=== PATIENT | male | born 1935 | race Caucasian/White ===

== ENCOUNTER 2024-02-27 15:53 | Inpatient (IN) | payer OTHER, SELFPAY ==
[2024-02-27 12:08] VITALS: BP 145/73
[2024-02-27 12:45] LABS: % Basophils 0.3 % (0-2); % Eosinophils 2.6 % (0-6); % Immature Granulocytes 0.3 % (0-0.5); % Lymphocytes 17.3 % (20.5-51.1); % Monocytes 11.3 % (1.7-9.3); % Neutrophils 68.2 % (42.2-75.2); Absolute Eosinophils 0.2 10^3/uL (0-0.7); Absolute Lymphocytes 1.4 10^3/uL (1.2-3.4); Absolute Monocytes 0.9 10^3/uL (0.1-0.6); Absolute Neutrophils 5.3 10^3/uL (1.4-6.5); Hemoglobin 12.4 g/dL (13.0-18.0); Mean Corp Hgb Conc. 32.6 g/dL (33.0-37.0); Mean Platelet Volume 10.5 fL (7.4-10.4); Nucleated Red Blood Cells % 0 % (-); Platelet Count 156 10^3/uL (130-400); Red Blood Cell Count 4.13 10^6/uL (4.70-6.10); Red Cell Dist. Width 13.4 % (11.5-14.5); White Blood Cell Count 7.8 10^3/uL (4.8-10.8)
[2024-02-27 13:07] LABS: ALT (SGPT) 20 U/L (0-50); AST (SGOT) 32 U/L (17-59); Albumin 4.3 g/dl (3.5-5.0); Alkaline Phosphatase 80 U/L (38-126); Blood Urea Nitrogen 25 mg/dl (9-20); Calcium 9.5 mg/dl (8.4-10.2); Carbon Dioxide 27 mmol/L (22-30); Chloride 103 mmol/L (98-107); Glucose 136 mg/dl (70-99); Potassium 5.5 mmol/L (3.5-5.1); Sodium 140 mmol/L (135-145); Total Bilirubin 0.8 mg/dl (0.2-1.3); Total Protein 7.5 g/dl (6.3-8.2); eGFR > 60.00
[2024-02-27 13:17] LABS: NT-proBNP 8020 pg/ml; Troponin I < 0.012 ng/ml
[2024-02-27 13:48] VITALS: BP 112/95
[2024-02-27] MEDS: LASIX 40 MG IV (14:38)
--- NOTE | 2024-02-27 14:43 | CON.CAR ---
Addendum entered and electronically signed by CYNDY Brunner 02/27/24 15:48:
Addendum entered and electronically signed by CYNDY Brunner 02/27/24 15:41:
Consultation Requested 02/27/2024 at 14:00
Consultation Performed 02/27/2024 at 14:00
Requested by Marlo Germain PA-C
Performed by CYNDY Zelaya for Dr. Morrissey
Reason for consultation: Acute on chronic heart failure
Original Note:
Medical History
-
Chief Complaint: Shortness of breath, cough
History of Present Illness:
Julius Buckley is an 89 year old male (known to Dr. Morrissey, his primary admissions manager), with severe aortic stenosis, mitral valve replacement (rheumatic disease, on warfarin), HFmrEF, CAD (non obstructive), permanent atrial fibrillation, SSS s/p
Medtronic single-chamber pacemaker, dyslipidemia, and former smoker who presented to the emergency department with a chief complaint of shortness of breath. He endorsed associated cough. This started a few days ago and has been getting worse. He
noticed it worsening last night. He is unable to lay flat without severe shortness of breath. He had considered evaluation for TAVR however this was put on hold after the of his . He does endorse decrease in exercise capacity and is
now in acute on chronic heart failure.
Past Medical History
Past Medical History: Arrhythmias (Permanent atrial fibrillation), CAD, CHF and Valvular Disease (mechanical MVR, aortic stenosis)
Past Surgical History: Cardiac
Social History
Tobacco: Former Smoker
Alcohol: None
Drug: None
Personal:
Living: With Family (Twin brother)
Employment: Retired
Family History
Family History: Reviewed & Not Pertinent
Allergies / Home Medications
Allergy/AdvReac Type Severity Reaction Status Date / Time
quinidine [Quinidine] Allergy 'made my Verified 02/27/24 12:10
heart go
really
crazy'
�Medication �Instructions �Recorded �Confirmed �Type
digoxin 125 mcg (0.125 mg) tablet 0.125 mg PO DAILY Heart Failure 04/30/19 02/27/24 History
simvastatin 20 mg tablet 20 mg PO DAILY High cholesterol 07/18/20 02/27/24 History
lisinopril 5 mg tablet 5 mg PO DAILY Blood pressure 07/30/20 02/27/24 History
furosemide 40 mg tablet 40 mg PO DAILY 02/27/24 02/27/24 History
nadolol 80 mg tablet 80 mg PO BID 02/27/24 02/27/24 History
therapeutic multivitamin 1 tab PO DAILY 02/27/24 02/27/24 History
vitamins A,C,B-yrvl-zqiocr 4,296 1 cap PO DAILY 02/27/24 02/27/24 History
mcg-226 mg-90 mg capsule
(PreserVision AREDS)
warfarin 2.5 mg tablet 1.25 mg PO DAILY 02/27/24 02/27/24 History
warfarin 2.5 mg tablet 2.5 mg PO MOTUTHFR@1800 02/27/24 02/27/24 History
Review of Systems
-
History Source: Patient
All other systems: Negative unless noted
Constitutional: Weight Gain and Fatigue
Respiratory: Cough and Trouble Breathing
Cardiac: No Symptoms
Physical Exam
Vital Signs
Temp Pulse Resp BP Pulse Ox
97.7 F 77 18 112/95 94
02/27/24 12:08 02/27/24 13:48 02/27/24 13:48 02/27/24 13:48 02/27/24 13:48
Lab Results
02/27/24 12:35
02/27/24 12:35
Troponin I < 0.012 ng/ml 02/27/24 12:35
Wuf-B-Zgimlswbefw Pept 8020 pg/ml 02/27/24 12:35
Physical Exam
General: Well Developed, Well Nourished, No Apparent Distress and Comfortable
HEENT: Normocephalic, Anicteric and Moist Mucous Membranes
Respiratory: Crackles
Cardiac: S1/S2 and Other (mechanical click)
Breast: Deferred by me
GI: Soft, Non Tender, Non Distended and Normal Bowel Sounds
Rectal: Deferred by Provider
Genito-urinary: No Costovertebral Tender
Musculoskeletal: No Clubbing and No Cyanosis
Skin: Warm and Dry
Neuro: AO x 3
Hematologic/Lymphatic: No Lymphadenopathy
Psych: Calm
Impression / Plan
-
Background: 89M severe aortic stenosis, mitral valve replacement (rheumatic disease, on warfarin), HFmrEF, CAD (non obstructive), permanent atrial fibrillation, SSS s/p Medtronic single-chamber pacemaker, dyslipidemia, and former smoker who
presented to the emergency department with a chief complaint of shortness of breath. He presented in acute on chronic heart failure.
Fruit Inspector: Dr. Morrissey
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
-His weight was approximately 69.2 kg at his outpatient office visit last month
-Diuresis with furosemide 40 mg IV twice daily
-Heart failure education
-Update echocardiogram
Severe aortic stenosis
-Echocardiogram 09/2023 with peak/mean gradients of 54/31 mmHg, JENN 0.7 cm2, DVI 0.2
-Plan for cardiac catheterization this admission, heparin bridge as below (INR pending)
-Consult TAVR team
Mechanical mitral valve
-He is on warfarin with INR managed by our office
-Goal INR 2.5-3.5
-Hold warfarin and transition to heparin drip pending INR
Permanent atrial fibrillation
-Rate controlled on nadolol and digoxin
-Oral anticoagulation: Warfarin (mechanical mitral valve replacement)
-[id number] score at least 4 (age 89, vascular disease, CHF)
Hyperkalemia, follow with diuresis
Medtronic single-chamber PPM, followed in our outpatient device clinic, ASSEMBLER ENGINE 93% with normal lead function on interrogation 02/08/2024, MRI conditional
Coronary artery disease, s/p CABG (2017), stable without chest pain
Dyslipidemia, on simvastatin
Former smoker, continued cessation recommended
Data Reviewed
-
EKG: Report Reviewed by me (Atrial fibrillation with ventricular paced complexes, rate 75, anterior lateral ST abnormality)
Medical Tests (Nuc Med, Echo etc): Report Reviewed by me (Echocardiogram as above)
Labs: Discussed with Physician
Old Records: Reviewed (Outpatient cardiology records)
--- NOTE | 2024-02-27 14:55 | ED.GENMED ---
History of Present Illness
General
Chief Complaint: Breathing Problem
Time Seen by Provider: 02/27/24 13:45
Travel History
Have you had any contact with someone who has COVID-19?: No
Do you have any symptoms of coronavirus? Fever > 100 degrees, chills, cough, shortness of breath, sore throat, loss of taste or smell, muscle aches, or headache?: No
Past History
Past History
ED Past Medical History: Arrthythmia (Atrial fib), HTN, Hypercholesterolemia, Valvular disease (Mitral valve replacement, severe aortic stenosis) and Other (GI bleed)
ED Past Surgical History: Cardiac (CABG) and Other (Hernia repair)
Social History
Tobacco: Former smoker
Alcohol: None
Personal:
Living: with family
Course
Orders/Labs/Results
Orders:
Orders
02/27/24 12:10
Electrocardiogram (*1) Urgent
Reason for Study: Shortness of Breath
EKG- Treatment ONCE
02/27/24 12:11
CXR2 [CR Chest - 2 Views ] Urgent
Comment:
Reason For Exam: sob/cough
02/27/24 12:35
Complete Blood Count/With Diff Urgent
Comprehensive Metabolic Panel Urgent
NT-proBNP Urgent
Troponin I Urgent
Blood Culture Urgent
CALIN Source: Blood/Venous
Specimen Description:
02/27/24 14:28
Furosemide [Lasix] 40 mg IV NOW STA
02/27/24 14:35
Prothrombin Time Urgent
02/27/24 14:39
Warfarin [Coumadin] 2.5 mg PO NOW STA
Abnormal Lab Results
02/27/24
12:35
RBC 4.13 L 10^6/uL
(4.70-6.10)
Hgb 12.4 L g/dL
(13.0-18.0)
Hct 38.0 L %
(39.0-52.0)
MCHC 32.6 L g/dL
(33.0-37.0)
MPV 10.5 H fL
(7.4-10.4)
Absolute Monos (auto) 0.9 H 10^3/uL
(0.1-0.6)
Lymphocytes % 17.3 L %
(20.5-51.1)
Monocytes % 11.3 H %
(1.7-9.3)
Potassium 5.5 H mmol/L
(3.5-5.1)
BUN 25 H mg/dl
(9-20)
Glucose 136 H mg/dl
(70-99)
02/27/24 12:35
02/27/24 12:35
Vital Signs
Initial and Last Documented VS:
Initial Vital Signs
Temp Pulse Resp BP Pulse Ox
97.7 F 73 16 145/73 98
02/27/24 12:08 02/27/24 12:08 02/27/24 12:08 02/27/24 12:08 02/27/24 12:08
Last Documented Vital Signs
Temp Pulse Resp BP Pulse Ox
97.7 F 77 18 112/95 94
02/27/24 12:08 02/27/24 13:48 02/27/24 13:48 02/27/24 13:48 02/27/24 13:48
ED Attending Note
-
Portions of this chart may have been created with voice recognition software.� Occasional wrong word or��sound alike� substitutions may have occurred due to the inherent limitations of voice recognition software.
Discharge Plan
Departure
Prescriptions:
No Action
digoxin 0.125 MG tablet
0.125 mg PO DAILY
simvastatin 20 MG tablet
20 mg PO DAILY
lisinopril 5 MG tablet
5 mg PO DAILY
furosemide 40 mg Tablet
40 mg PO DAILY
nadolol 80 mg Tablet
80 mg PO BID
warfarin 2.5 mg Tablet
1.25 mg PO DAILY
warfarin 2.5 mg Tablet
2.5 mg PO MOTUTHFR@1800
Theragen Tablet
1 tab PO DAILY
PreserVision AREDS 4,296 mcg-226 mg-90 mg Capsule
1 cap PO DAILY
Referrals:
Yinka Lemon MD [Family Provider] -
Interventions
Interventions:
*Risk Screen - Suicide Last Done: 02/27/24 13:42
*General Assessment Last Done: 02/27/24 13:42
*Neglect/Abuse Screening Last Done: 02/27/24 13:42
ED- Fall Risk Assessment Last Done: 02/27/24 13:42
*ED COVID-19 Vaccine History Last Done: 02/27/24 12:08
ED- Cardiac Assessment Last Done: 02/27/24 13:42
ED- Pulmonary Assessment Last Done: 02/27/24 13:42
Discharge Date and Time
Print Language: KOREAN
--- NOTE | 2024-02-27 14:56 | ED.GENMED ---
History of Present Illness
General
Chief Complaint: Breathing Problem
Time Seen by Provider: 02/27/24 13:45
Travel History
Have you had any contact with someone who has COVID-19?: No
Do you have any symptoms of coronavirus? Fever > 100 degrees, chills, cough, shortness of breath, sore throat, loss of taste or smell, muscle aches, or headache?: No
History of Present Illness
History of Present Illness:
89-year-old male with history of aortic stenosis, MR s/p MVR, CHF, coronary artery disease, PAF status post pacemaker placement, and mitral regurgitation presents to the emergency department for evaluation of shortness of breath that has been waxing
waning over the past several days. He notes that the breathing became worse overnight prompting him to come to the emergency department. He notes that he only takes his Lasix at a half dose daily because he does not like to urinate excessively.
Did not take any of his meds this morning. He was previously in discussions to undergo TAVR but due to the of his this was put off. Denies any chest pain or shortness of breath at rest
Past History
Past History
ED Past Medical History: Arrthythmia (Atrial fib), HTN, Hypercholesterolemia, Valvular disease (Mitral valve replacement, severe aortic stenosis) and Other (GI bleed)
ED Past Surgical History: Cardiac (CABG) and Other (Hernia repair)
Social History
Tobacco: Former smoker
Alcohol: None
Personal:
Living: with family
Review of Systems
Review of Systems
Allergies reviewed?: Yes
All Other Systems: ROS reviewed and negative except as documented in HPI and ROS
Phy Exam
Physical Exam
Physical Exam:
GEN: Well appearing, NAD, WDWN
Eyes: PERRLA, EOMs intact, no scleral icterus
HENT: NCAT, oral mucosa moist
Lungs: Normal respiratory effort, bibasilar crackles
Cardiac: Regular rate and rhythm, blowing holosystolic murmur consistent with known AAS
Abdomen: S, NT, ND, NABS, no masses or hepatosplenomegaly
Neuro: AO x 3
MSK: No gross deformity or ecchymosis. No edema. No digital clubbing
Skin: No rashes, petechiae. Normal color, no pallor or jaundice.
Psych: Calm, cooperative, proper hygiene
Scores
Heart Failure Risk
Heart Failure Risk Score: Yes
History of Stroke or TIA: No
History of intubation for respiratory distress: No
Heart rate on ED arrival >/= 110: No
SaO2 <90% on arrival on room air: No
HR >/=110 during 3min walk test (or too ill to perform test): No
ECG has acute ischemic changes: No
Urea >/=12mmol/L (BUN 33.6mg/dL): No
Serum CO2>/=35mmol/L: No
Troponin I or T elevated to KS Level (0.4mg/dL): No
NT-proBNP >/=5,000ng/L (5,000pg/ml): Yes
HF Risk Score: 1
Admission Status: MEDIUM RISK 5.1% Consider observation or discharge to home with homecare & f/u visit to PCP/Work Order Sorting Clerk, or SNF for treatment
Course
Orders/Labs/Results
Orders:
Orders
02/27/24 12:10
Electrocardiogram (*1) Urgent
Reason for Study: Shortness of Breath
EKG- Treatment ONCE
02/27/24 12:11
CXR2 [CR Chest - 2 Views ] Urgent
Comment:
Reason For Exam: sob/cough
02/27/24 12:35
Complete Blood Count/With Diff Urgent
Comprehensive Metabolic Panel Urgent
NT-proBNP Urgent
Troponin I Urgent
Blood Culture Urgent
CALIN Source: Blood/Venous
Specimen Description:
02/27/24 14:28
Furosemide [Lasix] 40 mg IV NOW STA
02/27/24 14:35
Prothrombin Time Urgent
02/27/24 14:39
Warfarin [Coumadin] 2.5 mg PO NOW STA
Abnormal Lab Results
02/27/24
12:35
RBC 4.13 L 10^6/uL
(4.70-6.10)
Hgb 12.4 L g/dL
(13.0-18.0)
Hct 38.0 L %
(39.0-52.0)
MCHC 32.6 L g/dL
(33.0-37.0)
MPV 10.5 H fL
(7.4-10.4)
Absolute Monos (auto) 0.9 H 10^3/uL
(0.1-0.6)
Lymphocytes % 17.3 L %
(20.5-51.1)
Monocytes % 11.3 H %
(1.7-9.3)
Potassium 5.5 H mmol/L
(3.5-5.1)
BUN 25 H mg/dl
(9-20)
Glucose 136 H mg/dl
(70-99)
02/27/24 12:35
02/27/24 12:35
Vital Signs
Initial and Last Documented VS:
Initial Vital Signs
Temp Pulse Resp BP Pulse Ox
97.7 F 73 16 145/73 98
02/27/24 12:08 02/27/24 12:08 02/27/24 12:08 02/27/24 12:08 02/27/24 12:08
Last Documented Vital Signs
Temp Pulse Resp BP Pulse Ox
97.7 F 77 18 112/95 94
02/27/24 12:08 02/27/24 13:48 02/27/24 13:48 02/27/24 13:48 02/27/24 13:48
MDM/Problems Addressed
MDM/Problems Addressed:
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 Will be admitted to the hospitalist service for further management
*Critical Care Note
Total Time (30-74mins, 75-104mins- exclusive of procedures): Not Applicable
ED Attending Note
-
Portions of this chart may have been created with voice recognition software.� Occasional wrong word or��sound alike� substitutions may have occurred due to the inherent limitations of voice recognition software.
Discharge Plan
Departure
Patient Disposition: Admit
Date of Disposition: 02/27/24
Time of Disposition: 15:06
Admit to: Telemetry
Presentation/result/management discussed w/ accepting MD/DO: Hospitalist
Discharge Problem:
Acute HFrEF (heart failure with reduced ejection fraction), Aortic stenosis
Prescriptions:
No Action
digoxin 0.125 MG tablet
0.125 mg PO DAILY
simvastatin 20 MG tablet
20 mg PO DAILY
lisinopril 5 MG tablet
5 mg PO DAILY
furosemide 40 mg Tablet
40 mg PO DAILY
nadolol 80 mg Tablet
80 mg PO BID
warfarin 2.5 mg Tablet
1.25 mg PO DAILY
warfarin 2.5 mg Tablet
2.5 mg PO MOTUTHFR@1800
Theragen Tablet
1 tab PO DAILY
PreserVision AREDS 4,296 mcg-226 mg-90 mg Capsule
1 cap PO DAILY
Referrals:
Yinka Lemon MD [Family Provider] -
Interventions
Interventions:
*Risk Screen - Suicide Last Done: 02/27/24 13:42
*General Assessment Last Done: 02/27/24 13:42
*Neglect/Abuse Screening Last Done: 02/27/24 13:42
ED- Fall Risk Assessment Last Done: 02/27/24 13:42
*ED COVID-19 Vaccine History Last Done: 02/27/24 12:08
ED- Cardiac Assessment Last Done: 02/27/24 13:42
ED- Pulmonary Assessment Last Done: 02/27/24 13:42
Discharge Date and Time
Print Language: EQUATORIAL GUINEAN
[2024-02-27 15:05] LABS: INR 2.78; PT 29.3 Sec (11.4-14.6)
--- NOTE | 2024-02-27 15:07 | HPS.HSE ---
Family Physician
-
Family Physician: Yinka Lemon
Chief Complaint
-
sob
History of Present Illness
89-year-old male with history of aortic stenosis, MR s/p MVR, CHF, coronary artery disease, PAF status post pacemaker placement, and mitral regurgitation presents to the emergency department for evaluation of shortness of breath that has been waxing
waning since . stated mild sob with exertion.Denies any chest pain. stated worsening sob last night. he was not able to sleep due to sob. denied TINEO, dizzy or syncopal episode. denied fever, chills, runny nose, congestion. denied abdominal
pain, nv,d. denied dysuria or hematuria.
BNP elevated. chest x ray with mild cardiomegaly. admitting for further management.
Medical History
Past Medical History
Past Medical History: Reports Other
Additional Past Medical History:
inguinal hernia
paroxysmal atrial fib
CAD
aortic stenosis
rheumatic aortic stenosis
sick sinus syndrome
skin cancer
Past Surgical History: Reports Other
Additional Past Surgical History:
mitral valve replacement
CABG
hernia repair
inguinal hernia repair
pacemaker
Social History
Tobacco: Non-smoker
Alcohol: None
Drug: None
Personal: Single
Living: With Family
Family History
Family History: Not pertinent
Allergies / Home Medications
Allergies reflects when Allergies were last updated in [facility].
Home Medications with original date entered in [facility]
Allergy/Medication List:
Allergies
Allergy/AdvReac Type Severity Reaction Status Date / Time
quinidine [Quinidine] Allergy 'made my Verified 02/27/24 12:10
heart go
really
crazy'
Home Medications
digoxin 125 mcg (0.125 mg) tablet 0.125 mg PO DAILY Heart Failure 04/30/19
simvastatin 20 mg tablet 20 mg PO DAILY High cholesterol 07/18/20
lisinopril 5 mg tablet 5 mg PO DAILY Blood pressure 07/30/20
furosemide 40 mg tablet 40 mg PO DAILY 02/27/24
nadolol 80 mg tablet 80 mg PO BID 02/27/24
therapeutic multivitamin 1 tab PO DAILY 02/27/24
vitamins A,C,A-nyth-frraza 4,296 mcg-226 mg-90 mg capsule (PreserVision AREDS) 1 cap PO DAILY 02/27/24
warfarin 2.5 mg tablet 1.25 mg PO DAILY 02/27/24
warfarin 2.5 mg tablet 2.5 mg PO MOTUTHFR@1800 02/27/24
Review of Systems
-
Constitutional: Reports No Symptoms
EENT: Reports No Symptoms
Respiratory: Reports Cough and Trouble Breathing
Cardiac: Reports No Symptoms
Abdomen/GI: Reports No Symptoms
: Reports No Symptoms
Musculoskeletal: Reports No Symptoms
Skin: Reports No Symptoms
Neurological: Reports No Symptoms
Endocrine: Reports No Symptoms
Hematologic/Lymphatic: Reports No Symptoms
Psych: Reports No Symptoms
Physical Exam
Vital Signs
Vital Signs
Temp Pulse Resp BP Pulse Ox
97.7 F 77 18 112/95 94
02/27/24 12:08 02/27/24 13:48 02/27/24 13:48 02/27/24 13:48 02/27/24 13:48
Physical Exam
General: Well Developed, Well Nourished and No Apparent Distress
HEENT: NormoCephalic, Moist mucous membranes and Atraumatic
Respiratory: Clear
Cardiac: S1/S2 and Regular Rhythm; No Murmur or Rub
GI: Soft, Non Tender, Non Distended and Normal Bowel Sounds; No Organomegaly
Rectal: Deferred by Provider
Musculoskeletal: No Clubbing, No Cyanosis and Other (b/l LE edema)
Skin: No Rash
Neuro: AO x 3 and Nonfocal/grossly intact
Psych: Calm
Laboratory Results
-
02/27/24 12:35
02/27/24 12:35
Laboratory Results
PT 29.3 Sec (11.4-14.6) H 02/27/24 14:35
INR 2.78 02/27/24 14:35
Total Bilirubin 0.8 mg/dl (0.2-1.3) 02/27/24 12:35
AST 32 U/L (17-59) 02/27/24 12:35
ALT 20 U/L (0-50) 02/27/24 12:35
Alkaline Phosphatase 80 U/L (38-126) 02/27/24 12:35
Troponin I < 0.012 ng/ml 02/27/24 12:35
Data Reviewed
-
Diagnostic Radiology: Report Reviewed by me
Lab Data: Labs Reviewed by me
Impression/Plan
-
#acute on chronic CHF exacerbation
-BNP 8020
-Chest x-ray with mild central pulmonary vascular congestion, mild cardiomegaly
-IV Lasix bid
-Strict SCARLET
-Daily weight
-Fluid restriction
-Cardiology consult
-recent ECHO with EF of 40.45%
-obtain ECHO
#hxt of severe /mechanical mitral valve
-on Coumadin
-plan for cardiac cath
-hold Coumadin, heparin bridge
#paroxysmal atrial fib
-Heart rate controlled
-Digoxin continued
-Nadolol continued
# Essential hypertension
-Lisinopril continued with old parameter
#coronary artery disease, s/p CABG (2017), stable without chest pain
#HLD
-Simvastatin continued
# Hyperkalemia
-K5.5
-Will diurese and monitor BMP
# DVT prophylaxis
-Heparin drip
# CODE STATUS
-Full code
[2024-02-27 15:29] VITALS: BP 120/91
--- NOTE | 2024-02-27 15:57 | W.PN.UPDATE ---
Update Note
Progress Note Update
HPI: 89-year-old male with PMH severe aortic stenosis, MR s/p MVR, CHF, coronary artery disease, PAF status post pacemaker placement; p/w shortness of breath/ SIMON.
A/P:
# acute on chronic systolic CHF, may be related to underling severe
BNP 8020
Chest x-ray with mild central pulmonary vascular congestion, mild cardiomegaly
Started IV Lasix 40 mg BID, monitor daily weight
check repeat echo
Cardiology on board
# Severe
# mechanical mitral valve replacement
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
# Paroxysmal atrial fib
Cont Digoxin, Nadolol
# Essential hypertension
Cont Lisinopril with hold parameter
# CAD s/p CABG (2017)
stable without chest pain
# HLD
Simvastatin continued
# Mild Hyperkalemia
K 5.5
monitor BMP while on IV lasix
DVT prophylaxis- Heparin drip bridge
CODE STATUS- Full code
[2024-02-27] MEDS: ASPIRIN ENTERIC COATED 325 MG PO (16:47)
[2024-02-27 17:31] VITALS: BMI 23.3
[2024-02-27 17:32] VITALS: BP 143/74
[2024-02-27 17:44] LABS: Hematocrit 37.2 % (39.0-52.0); Hemoglobin 12.3 g/dL (13.0-18.0); Mean Corp Hgb Conc. 33.1 g/dL (33.0-37.0); Mean Corpuscular Hgb 29.8 pg (27.0-31.0); Mean Corpuscular Volume 90.1 fL (80.0-94.0); Mean Platelet Volume 10.3 fL (7.4-10.4); Platelet Count 151 10^3/uL (130-400); Red Blood Cell Count 4.13 10^6/uL (4.70-6.10); Red Cell Dist. Width 13.4 % (11.5-14.5); White Blood Cell Count 5.8 10^3/uL (4.8-10.8)
[2024-02-27 17:55] LABS: APTT 59.6 Sec (23.4-35.0)
[2024-02-27] MEDS: HEPARIN 25000 UNITS/250 ML IV (18:01)
[2024-02-27 18:21] VITALS: BMI 23.3
[2024-02-27 19:00] VITALS: BP 132/54
[2024-02-27] MEDS: CORGARD PO (20:09)
[2024-02-27 23:00] VITALS: BP 125/53
[2024-02-28] VITALS (7 sets, daily range): BP systolic 130–163; BP diastolic 57–75; BMI 23.0
[2024-02-28] MEDS: ROBITUSSIN 200 MG PO ×2 (00:51→07:30)
[2024-02-28 01:59] LABS: APTT 142.1 Sec (23.4-35.0)
[2024-02-28] MEDS: ZESTRIL 5 MG PO (07:30)
[2024-02-28] MEDS: LOW STRENGTH ASPIRIN 81 MG PO (07:30)
[2024-02-28] MEDS: CORGARD 80 MG PO ×2 (07:30→20:04)
[2024-02-28] MEDS: LIPITOR 10 MG PO (07:30)
[2024-02-28] MEDS: LASIX 40 MG IV ×2 (07:31→16:12)
[2024-02-28 08:37] LABS: INR 2.74; PT 28.9 Sec (11.4-14.6)
[2024-02-28 08:38] LABS: APTT 82.7 Sec (23.4-35.0)
--- NOTE | 2024-02-28 08:41 | W.PN.CD ---
Today's Communication / Plan
-
hold hep gtt until INR<2.5
resume diet but npo p
continue diuresis
consider additional process ?Bronchitis
inr check at 5pm for possible resumption of heparin gtt
Impression / Plan
-
Background: 89M severe aortic stenosis, mitral valve replacement (rheumatic disease, on warfarin), HFmrEF, CAD (non obstructive), permanent atrial fibrillation, SSS s/p Medtronic single-chamber pacemaker, dyslipidemia, and former smoker who
presented to the emergency department with a chief complaint of shortness of breath. He presented in acute on chronic heart failure.
Guest Services Ambassador: Dr. Morrissey
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
-His weight was approximately 69.2 kg at his outpatient office visit last month
-Diuresis with furosemide 40 mg IV twice daily
-Heart failure education
-EF down to 35-40%,eventual GDMT, after diureisis
-CM to [facility] SGLT2 inhibitors
SOB:
-?elebment of bronchitis as well> he is bringing up thick yellow sputum and is wheezing on exam
-will d/w Dr Anders
Severe aortic stenosis
-Plan for cardiac catheterization this admission, heparin bridge as below (INR pending)
-Consult TAVR team
Mechanical mitral valve
-He is on warfarin with INR managed by our office
-Goal INR 2.5-3.5--no need for hep gtt while therapuetic, will check this evening and see if need to resume hep but for now will hold
-Hold warfarin and transition to heparin drip when INR <2.5
Permanent atrial fibrillation
-tele with some sinus intermittently paced
-Rate controlled on nadolol and digoxin
-Oral anticoagulation: Warfarin (mechanical mitral valve replacement)
-[id number] score at least 4 (age 89, vascular disease, CHF)
Hyperkalemia, follow with diuresis
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
Coronary artery disease, s/p CABG (2017), stable without chest pain
Dyslipidemia, on simvastatin
Former smoker, continued cessation recommended
TTE 02/27/24: Moderately reduced left ventricular systolic function.
Left ventricular ejection fraction is 35-40%.
Mechanical mitral valve with a mean gradient of 4 mmHg and no mitral
regurgitation
Severe aortic stenosis. Peak gradient 42 mmHg. Mean gradient 23 mmHg.
Dimensionless index 0.2
Severe pulmonary hypertension with estimated PA pressure 75 to 80 mmHg
When compared with the previous report 09/26/2023 estimated EF is reduced.
Previously 40 to 45%. Estimated PA pressure is increased. Previously 64 mmHg
Physical Exam
Vital Signs/Labs
Vital Signs
Temp Pulse Resp BP Pulse Ox
98.2 F 61 16 163/61 94
02/28/24 07:00 02/28/24 07:00 02/28/24 07:00 02/28/24 07:00 02/28/24 07:00
02/27/24 02/28/24 02/29/24
06:59 06:59 06:59
Actual Weight 66.406 kg
02/28/24 06:00
PT 28.9 Sec (11.4-14.6) H 02/28/24 08:14
INR 2.74 02/28/24 08:14
APTT Cancelled 02/28/24 08:14
02/27/24
12:35
Pfp-E-Nfqhoipdpbx Pept 8020
LAB Results
02/27/24
12:35
Troponin I < 0.012
Physical Exam
Constitutional: No acute distress
Cardiovascular: Rhythm & rate is regular, Pedal edema is absent and Systolic murmur absent
Respiratory: Respiratory effort normal, Crackles Absent, Rhonchi Absent and Wheeze Present (diffusely)
Neuro/Psych: AO x 3
Data Reviewed
-
Date of Service: February 28, 2024
EKG: Other (tele with intermittent sinus and vpacing)
[2024-02-28 08:42] LABS: ALT (SGPT) 19 U/L (0-50); AST (SGOT) 33 U/L (17-59); Albumin 4.2 g/dl (3.5-5.0); Alkaline Phosphatase 84 U/L (38-126); Blood Urea Nitrogen 28 mg/dl (9-20); Calcium 9.5 mg/dl (8.4-10.2); Carbon Dioxide 27 mmol/L (22-30); Chloride 104 mmol/L (98-107); Direct Bilirubin 0.3 mg/dl (0.0-0.4); Estimated Creatinine Clearance 48 ml/min; Glucose 126 mg/dl (70-99); HDL Cholesterol 42 mg/dl; LDL Cholesterol, Calculated 70 mg/dl; Potassium 4.6 mmol/L (3.5-5.1); Sodium 140 mmol/L (135-145); Total Cholesterol 134 mg/dl (50-199); Total Protein 7.5 g/dl (6.3-8.2); Triglyceride 114 mg/dl (10-149); Very Low Density Lipoprotein 22 mg/dl (0-30); eGFR > 60.00
[2024-02-28 08:52] LABS: Digoxin < 0.4 ng/ml (0.8-2.0)
[2024-02-28 09:09] LABS: TSH Reflex To Free T4 0.77 uIU/ml (0.47-4.68)
[2024-02-28] MEDS: LANOXIN 125 MCG PO (11:14)
--- NOTE | 2024-02-28 11:16 | W.PN.HOSP.TC ---
Today's Communication/Plan
-
see A/P
Assessment / Plan
Assessment / Plan
HPI: 89-year-old male with PMH severe aortic stenosis, MR s/p MVR, CHF, coronary artery disease, PAF status post pacemaker placement; p/w shortness of breath/ SIMON.
A/P:
# acute on chronic systolic CHF, may be related to underling severe
BNP 8020
Chest x-ray with mild central pulmonary vascular congestion, mild cardiomegaly
Cont IV Lasix 40 mg BID, monitor daily weight
updated echo 02/27 noted: EF 35-40%. Mechanical mitral valve, no mitral regurgitation. Severe aortic stenosis. Severe pulmonary hypertension with estimated PA pressure 75 to 80 mmHg. Compared with previous report 09/26/2023 estimated EF is reduced
(Previously 40 to 45%), PA pressure is increased (Previously 64 mmHg)
Cardiology on board
# Severe
# mechanical mitral valve replacement
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
follow daily INR
# Wheezing likely acute bronchitis
CXR unrevealing
start Decadron 4 mg BID, Mucinex, DuoNeb and vest therapy
Monitor wheezing
# Paroxysmal atrial fib
Cont Digoxin, Nadolol
# Essential hypertension
Cont Lisinopril with hold parameter
# CAD s/p CABG (2016)
stable without chest pain
# HLD
Simvastatin continued
# Mild Hyperkalemia, resolved
DVT prophylaxis- Heparin drip bridge when INR < 2.5
CODE STATUS- Full code
DW Card
Anticipated Discharge: > 48 hours
Subjective/Interval History
-
Date of Service: February 28, 2024
Objective Data
-
Labs:
Laboratory Results
02/28/24 02/28/24 02/28/24
00:52 01:43 06:00
WBC Cancelled
Hgb Cancelled
Hct Cancelled
Plt Count Cancelled
PT Cancelled
INR Cancelled
APTT Cancelled 142.1 H
Sodium
Potassium
Chloride
Carbon Dioxide
BUN
Creatinine
Glucose
Calcium
Total Bilirubin
AST
ALT
Alkaline Phosphatase
02/28/24 02/28/24 02/28/24
08:14 08:14 17:58
WBC
Hgb
Hct
Plt Count
PT 28.9 H Pending
INR 2.74 Pending
APTT Cancelled 82.7 H
Sodium 140
Potassium 4.6
Chloride 104
Carbon Dioxide 27
BUN 28 H
Creatinine 1.0
Glucose 126 H
Calcium 9.5
Total Bilirubin 1.0
AST 33
ALT 19
Alkaline Phosphatase 84
Vital Signs:
Vital Signs
Temp Pulse Resp BP Pulse Ox
36.8 C 61 16 163/61 94
02/28/24 07:00 02/28/24 07:00 02/28/24 07:00 02/28/24 07:00 02/28/24 07:00
I&O
02/27/24 02/28/24 02/29/24
06:59 06:59 06:59
Intake Total 240 / 240
Output Total 600 / 600
Balance -360 / -360
Review of Systems
-
All other systems: Reviewed and negative
Physical Exam
-
General: Well Developed, Well Nourished, No Apparent Distress, Comfortable and Conversant; Negative Respiratory Distress
HEENT: Normocephalic, Atraumatic, Nose Appears Normal and Ears Appear Normal; Negative Oxygen
Respiratory: Clear to Auscultation, Wheezes and Non Labored Respirations; Negative Accessory Resp Muscle Use
Cardiac: Regular Rhythm and S1/S2
GI: Soft, Nontender, Nondistended and Normal Bowel Sounds
Skin: Warm and Dry
Neuro: Awake, Alert, Oriented and AO x 3
Psych: Calm and Intact Judgement/Insight
Data Reviewed
-
Diagnostic Radiology: Image personally visualized and interpreted and Report Reviewed by me
Labs: Labs Reviewed by me
[2024-02-28] MEDS: DUONEB 3 ML INH ×3 (11:30→19:35)
[2024-02-28] MEDS: MUCINEX 1200 MG PO ×2 (11:48→20:04)
[2024-02-28] MEDS: DECADRON 4 MG IV (11:48)
--- NOTE | 2024-02-28 15:13 | CM ---
Alert awake oriented patient who lives with his brother and franko in a2 level home with 1 step to enter and 13 to bed bathroom.He lost his in Sep.He is independent in driving and all activities of daily living.Offered VN he declined. No adaptive
devices. Informed him Luisa razo cost $ 14.40 / month
No SNF/DH VN hx
Pharmacy [facility]
PCP Dr Lemon
PLAN Home no needs
[2024-02-28 17:36] LABS: INR 2.73; PT 28.9 Sec (11.4-14.6)
[2024-02-29] MEDS: DECADRON 4 MG IV ×3 (00:10→23:31)
--- NOTE | 2024-02-29 03:08 | DOWNTIME ---
There was a [employer] Client Passenger Conductor Downtime on 02/28/2024 from 0100 to 02/29/2024 at 0300. Downtime documentation of patient's care, including medication administrations, has been reconciled in the electronic record per guidelines. Refer to the
patient's paper chart under the miscellaneous tab to see printed paper medication records and downtime forms.
[2024-02-29 03:11] VITALS: BP 120/70
[2024-02-29 05:35] LABS: Hematocrit 37.6 % (39.0-52.0); Hemoglobin 12.5 g/dL (13.0-18.0); Mean Corp Hgb Conc. 33.2 g/dL (33.0-37.0); Mean Corpuscular Hgb 29.9 pg (27.0-31.0); Mean Platelet Volume 10.5 fL (7.4-10.4); Platelet Count 147 10^3/uL (130-400); Red Blood Cell Count 4.18 10^6/uL (4.70-6.10); Red Cell Dist. Width 13.2 % (11.5-14.5); White Blood Cell Count 5.6 10^3/uL (4.8-10.8)
[2024-02-29 05:41] LABS: INR 2.75
[2024-02-29 06:03] LABS: Blood Urea Nitrogen 41 mg/dl (9-20); Calcium 9.1 mg/dl (8.4-10.2); Carbon Dioxide 27 mmol/L (22-30); Chloride 102 mmol/L (98-107); Estimated Creatinine Clearance 43 ml/min; Glucose 167 mg/dl (70-99); Magnesium 1.9 mg/dl (1.6-2.3); Potassium 4.4 mmol/L (3.5-5.1); Sodium 138 mmol/L (135-145); eGFR > 60.00
[2024-02-29 07:00] VITALS: BP 149/85
[2024-02-29] MEDS: CORGARD 80 MG PO (07:43)
[2024-02-29] MEDS: MUCINEX 1200 MG PO ×2 (07:43→19:46)
[2024-02-29] MEDS: ZESTRIL 5 MG PO (07:44)
[2024-02-29] MEDS: LIPITOR 10 MG PO (07:44)
[2024-02-29] MEDS: LOW STRENGTH ASPIRIN 81 MG PO (07:44)
[2024-02-29] MEDS: DUONEB 3 ML INH ×2 (07:46→11:08)
[2024-02-29] MEDS: LASIX 40 MG IV ×2 (07:51→16:05)
--- NOTE | 2024-02-29 09:04 | W.PN.CD ---
Today's Communication / Plan
-
Monitor INR.
Continue diuresis.
R/L Cardiac catheterization when INR is < 1.8.
Start heparin when INR is < 2.5.
Start dapagliflozin 10 mg daily.
Role for sacubitril/valsartan?
Impression / Plan
-
Impression/Plan: 89M severe aortic stenosis, mechanical mitral valve replacement (#35 [place] mechanical MVR, on warfarin), HFmrEF, CAD s/p 1V CABG (SVG to OM during MVR), permanent atrial fibrillation, SSS s/p Medtronic single-chamber pacemaker,
dyslipidemia, and former smoker who presented to the emergency department with a chief complaint of shortness of breath consistent with acute on chronic heart failure.
#Heart failure with mildly reduced ejection fraction
-Acute on chronic.
-LVEF 40-45%, now down to 35-40%.
-Diuresis with furosemide 40 mg IV twice daily.
-Heart failure education.
-GDMT. Case management consult.
#SOB
-Possible element of bronchitis as well?
-He was bringing up thick yellow sputum and is wheezing on exam.
#Severe aortic stenosis
-Plan for R/L cardiac catheterization this admission, after INR is < 1.8.
-Heparin bridge as below (INR pending)
#Mechanical mitral valve
-Chronic, stable.
-He is on warfarin with INR managed by our office.
-Goal INR 2.5-3.5--no need for hep gtt while therapuetic, will check this evening and see if need to resume hep but for now will hold
-Hold warfarin and transition to heparin drip when INR <2.5.
#Permanent atrial fibrillation
-Chronic, stable.
-Rate control nadolol and digoxin.
-Oral anticoagulation: Warfarin (mechanical mitral valve replacement).
-[id number] score at least 4 (CHF, age x2, vascular disease).
#Hyperkalemia
-Resolved.
#SSS
-S/P Medtronic single-chamber PPM, followed in our outpatient device clinic, OUTSIDE SALES ACCOUNT EXECUTIVE 93% with normal lead function on interrogation 02/08/2024, MRI conditional.
#Coronary artery disease
-Chronic.
-s/p CABG 1V CABG (SVG to OM) during MVR.
#Dyslipidemia
-Chronic, stable.
-Continue simvastatin.
#Former smoker
-Continued cessation recommended.
Puppy Sitter: Dr. Morrissey
Subjective/Interval History:
Weight is down 1 kg from yesterday.
INR remains 2.75.
He feels well.
DATA:
TTE, 02/27/24:
Moderately reduced left ventricular systolic function.
Left ventricular ejection fraction is 35-40%.
Mechanical mitral valve with a mean gradient of 4 mmHg and no mitral
regurgitation.
Severe aortic stenosis. Peak gradient 42 mmHg. Mean gradient 23 mmHg.
Dimensionless index 0.2.
Severe pulmonary hypertension with estimated PA pressure 75 to 80 mmHg.
When compared with the previous report 09/26/2023 estimated EF is reduced.
Previously 40 to 45%. Estimated PA pressure is increased. Previously 64 mmHg.
Physical Exam
Vital Signs/Labs
Vital Signs
Temp Pulse Resp BP Pulse Ox
36.4 C 65 16 149/85 95
02/29/24 07:00 02/29/24 07:52 02/29/24 07:52 02/29/24 07:00 02/29/24 07:52
02/27/24 02/28/24 02/29/24
11:59 11:59 11:59
Actual Weight 66.406 kg
02/29/24 05:12
02/29/24 05:12
PT 29.0 Sec (11.4-14.6) H 02/29/24 05:12
INR 2.75 02/29/24 05:12
APTT 82.7 Sec (23.4-35.0) H 02/28/24 08:14
APTT Cancelled 02/28/24 08:14
Magnesium 1.9 mg/dl (1.6-2.3) 02/29/24 05:12
Triglycerides 114 mg/dl (10-149) 02/28/24 08:14
LDL Cholesterol, Calc 70 mg/dl 02/28/24 08:14
VLDL Cholesterol, Calc 22 mg/dl (0-30) 02/28/24 08:14
HDL Cholesterol 42 mg/dl 02/28/24 08:14
Digoxin < 0.4 ng/ml (0.8-2.0) L 02/28/24 08:14
02/27/24
12:35
Zlk-V-Nhurhmhrhoa Pept 8020
LAB Results
02/27/24
12:35
Troponin I < 0.012
Physical Exam
Constitutional: No acute distress and Comfortable
EENT: Anicteric and Moist mucous membranes
Cardiovascular: Pedal edema is absent, JVD pressure is normal, Rhythm/rate is irregular, Systolic murmur present and S1S2 is normal (S1 is crisp and mechanical.)
Respiratory: Respiratory effort normal, Lungs clear to auscul., Wheeze Absent, Crackles Absent and Rhonchi Absent
GI: Soft, Distention absent, Flat, Non tender and Normal bowel sounds
Neuro/Psych: AO x 3
Data Reviewed
-
Date of Service: February 29, 2024
Medical Decision Making: Reviewed Test Results, Independent Historian Assessment and Test Interpretation
EKG: Tracing Personally Visualized and interpreted and Report Reviewed by me
Echo: Report Reviewed by me
X-Ray/CT/US/MRI/NUC/PET: Image Personally Visualized and interpreted and Report Reviewed by me
Labs: Labs Reviewed by me
--- NOTE | 2024-02-29 10:11 | PN.CDI ---
CDI
- -
CDI:
Physician Documentation Request
Admit Date: 02/27/24 15:53
Dear Doctor Chago,
Please review the following and provide your response in the progress notes.
Clinical Indicators:
Pt admitted with Acute on Chronic Systolic CHF
There is potentially conflicting documentation regarding the type of atrial fibrillation.
Documented per H&P and progress notes, ' Paroxysmal atrial fib Cont Digoxin, Nadolol ...'
Documented per Cardiology consult and Progress note 02/27, ' Permanent atrial fibrillation..'
If possible, please provide further specificity regarding atrial fibrillation, such as:
Permanent atrial fibrillation - when a decision has been made to accept the presence of AF and there is no further
attempt to restore or maintain sinus rhythm
Paroxysmal atrial fibrillation - terminates spontaneously or with intervention within 7 days of onset
Other - please specify
Use of terms such as suspected, likely, concern for, or probable (associated with a specific diagnosis that is being evaluated, monitored, or treated as if it exists) are acceptable and can be coded in the inpatient setting, when documented at the
time of discharge.
Thank you,
Agnieszka Evans RN
CDI Specialist
[place] [facility]
Please use your independent medical judgment in providing your response.
--- NOTE | 2024-02-29 10:47 | W.PN.HOSP.TC ---
Addendum entered and electronically signed by Evelyn Anders MD 02/29/24 14:24:
# Permanent atrial fibrillation
Original Note:
Today's Communication/Plan
-
see A/P
Assessment / Plan
Assessment / Plan
HPI: 89-year-old male with PMH severe aortic stenosis, MR s/p MVR, CHF, coronary artery disease, PAF status post pacemaker placement; p/w shortness of breath/ SIMON.
A/P:
# acute on chronic systolic CHF, may be related to underling severe
BNP 8020
Chest x-ray with mild central pulmonary vascular congestion, mild cardiomegaly
Cont IV Lasix 40 mg BID, monitor daily weight
updated echo 02/27 noted: EF 35-40%. Mechanical mitral valve, no mitral regurgitation. Severe aortic stenosis. Severe pulmonary hypertension with estimated PA pressure 75 to 80 mmHg. Compared with previous report 09/26/2023 estimated EF is reduced
(Previously 40 to 45%), PA pressure is increased (Previously 64 mmHg)
Cardiology on board
# Severe
# mechanical mitral valve replacement
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
follow daily INR
# Resolved wheezing likely due to acute bronchitis
Wheezing has resolved
CXR unrevealing
cont Decadron 4 mg BID today, Mucinex, DuoNeb
Anticipate short course of steroid
# Paroxysmal atrial fib
Cont Digoxin, Nadolol
# Essential hypertension
Cont Lisinopril with hold parameter
# CAD s/p CABG (2016)
stable without chest pain
# HLD
Simvastatin continued
# Mild Hyperkalemia, resolved
DVT prophylaxis- Heparin drip bridge when INR < 2.5
CODE STATUS- Full code
Anticipated Discharge: > 48 hours
Subjective/Interval History
-
Date of Service: February 29, 2024
Objective Data
-
Labs:
Laboratory Results
02/29/24
05:12
WBC 5.6
Hgb 12.5 L
Hct 37.6 L
Plt Count 147
PT 29.0 H
INR 2.75
Sodium 138
Potassium 4.4
Chloride 102
Carbon Dioxide 27
BUN 41 H
Creatinine 1.1
Glucose 167 H
Calcium 9.1
Vital Signs:
Vital Signs
Temp Pulse Resp BP Pulse Ox
36.4 C 65 16 149/85 95
02/29/24 07:00 02/29/24 07:52 02/29/24 07:52 02/29/24 07:00 02/29/24 07:52
I&O
02/28/24 02/29/24 03/01/24
06:59 06:59 06:59
Intake Total 240 / 240 960 / 960
Output Total 600 / 600 1000 / 1000
Balance -360 / -360 -40 / -40
Review of Systems
-
All other systems: Reviewed and negative
Respiratory: Denies Cough, Trouble Breathing or Wheezing
Physical Exam
-
General: Well Developed, Well Nourished, No Apparent Distress, Comfortable and Conversant; Negative Respiratory Distress
HEENT: Normocephalic, Atraumatic, Nose Appears Normal and Ears Appear Normal; Negative Oxygen
Respiratory: Clear to Auscultation and Non Labored Respirations; Negative Wheezes (resolved), Crackles or Accessory Resp Muscle Use
Cardiac: Regular Rhythm and S1/S2
GI: Soft, Nontender, Nondistended and Normal Bowel Sounds
Skin: Warm and Dry
Neuro: Awake, Alert, Oriented and AO x 3
Psych: Calm and Intact Judgement/Insight
Data Reviewed
-
Diagnostic Radiology: Image personally visualized and interpreted and Report Reviewed by me
Labs: Labs Reviewed by me
[2024-02-29 11:00] VITALS: BP 150/67
[2024-02-29] MEDS: LANOXIN 125 MCG PO (11:50)
[2024-02-29 15:00] VITALS: BP 119/61
--- NOTE | 2024-02-29 16:18 | CM ---
Maintained on Decadron .
Currently on Lasix IV BID.
Offered VN he declined.
Supportive family lives with him.
PLAN Home no needs
[2024-02-29 19:03] VITALS: BP 137/57
[2024-02-29] MEDS: CORGARD PO (19:47)
[2024-02-29 23:06] VITALS: BP 126/55
[2024-03-01] VITALS (7 sets, daily range): BP systolic 117–160; BP diastolic 37–67; BMI 22.6
[2024-03-01 05:37] LABS: Hematocrit 37.8 % (39.0-52.0); Hemoglobin 12.6 g/dL (13.0-18.0); Mean Corp Hgb Conc. 33.3 g/dL (33.0-37.0); Mean Corpuscular Hgb 30.1 pg (27.0-31.0); Mean Corpuscular Volume 90.4 fL (80.0-94.0); Mean Platelet Volume 10.4 fL (7.4-10.4); Platelet Count 177 10^3/uL (130-400); Red Blood Cell Count 4.18 10^6/uL (4.70-6.10); Red Cell Dist. Width 13.2 % (11.5-14.5); White Blood Cell Count 10.4 10^3/uL (4.8-10.8)
[2024-03-01 05:49] LABS: INR 2.73; PT 29.3 Sec (11.4-14.6)
[2024-03-01 06:10] LABS: Blood Urea Nitrogen 59 mg/dl (9-20); Calcium 9.2 mg/dl (8.4-10.2); Carbon Dioxide 28 mmol/L (22-30); Chloride 99 mmol/L (98-107); Estimated Creatinine Clearance 39 ml/min; Glucose 156 mg/dl (70-99); Potassium 4.7 mmol/L (3.5-5.1); Sodium 137 mmol/L (135-145); eGFR 58.17
[2024-03-01] MEDS: ZESTRIL 5 MG PO (07:48)
[2024-03-01] MEDS: LOW STRENGTH ASPIRIN 81 MG PO (07:48)
[2024-03-01] MEDS: LASIX 40 MG IV (07:49)
[2024-03-01] MEDS: CORGARD 80 MG PO ×2 (07:49→19:55)
[2024-03-01] MEDS: LIPITOR 10 MG PO (07:50)
[2024-03-01] MEDS: MUCINEX 1200 MG PO ×2 (07:50→19:55)
[2024-03-01] MEDS: FARXIGA 10 MG PO (07:50)
--- NOTE | 2024-03-01 09:36 | W.PN.CD ---
Today's Communication / Plan
-
continue to hold coumadin. INR remains at 2.7. reviewed issues with interventional cardiology. Continue to hold on gving Vit k
Plan for Cardiac cath tomorrow ( Dr Peralta)
hold addtional IV lasix and consider resuming oral diuretic after cath.
Impression / Plan
-
Impression/Plan: 89M severe aortic stenosis, mechanical mitral valve replacement (#35 [place] mechanical MVR, on warfarin), HFmrEF, CAD s/p 1V CABG (SVG to OM during MVR), permanent atrial fibrillation, SSS s/p Medtronic single-chamber pacemaker,
dyslipidemia, and former smoker who presented to the emergency department with a chief complaint of shortness of breath consistent with acute on chronic heart failure.
#Heart failure with mildly reduced ejection fraction
-Acute on chronic.
-LVEF 40-45%, now down to 35-40%.
-Diuresis with furosemide 40 mg IV twice daily.
-Heart failure education.
-GDMT. Case management consult.
#SOB
-significant improvement
- sill some wheezing left base
#Severe aortic stenosis
-Plan for R/L cardiac catheterization this admission, after INR is < 1.8.
-Heparin bridge as below (INR pending)
#Mechanical mitral valve
-Chronic, stable.
-He is on warfarin with INR managed by our office.
-Goal INR 2.5-3.5--
-Hold warfarin and transition to heparin drip when INR <2.5.
#Permanent atrial fibrillation
-Chronic, stable.
-Rate control nadolol and digoxin.
-Oral anticoagulation: Warfarin (mechanical mitral valve replacement).
-[id number] score at least 4 (CHF, age x2, vascular disease).
#Hyperkalemia
-Resolved.
#SSS
-S/P Medtronic single-chamber PPM, followed in our outpatient device clinic, AUTOMOTIVE SALES MANAGER 93% with normal lead function on interrogation 02/08/2024, MRI conditional.
#Coronary artery disease
-Chronic.
-s/p CABG 1V CABG (SVG to OM) during MVR.
#Dyslipidemia
-Chronic, stable.
-Continue simvastatin.
#Former smoker
-Continued cessation recommended.
Poly Packer And Heat Sealer: Dr. Morrissey
Subjective/Interval History:
Weight is down 1 kg from yesterday.
INR remains 2.75.
He feels well.
DATA:
TTE, 02/27/24:
Moderately reduced left ventricular systolic function.
Left ventricular ejection fraction is 35-40%.
Mechanical mitral valve with a mean gradient of 4 mmHg and no mitral
regurgitation.
Severe aortic stenosis. Peak gradient 42 mmHg. Mean gradient 23 mmHg.
Dimensionless index 0.2.
Severe pulmonary hypertension with estimated PA pressure 75 to 80 mmHg.
When compared with the previous report 09/26/2023 estimated EF is reduced.
Previously 40 to 45%. Estimated PA pressure is increased. Previously 64 mmHg.
Physical Exam
Vital Signs/Labs
Vital Signs
Temp Pulse Resp BP Pulse Ox
97.7 F 66 16 160/67 95
03/01/24 07:47 03/01/24 07:47 03/01/24 07:47 03/01/24 07:47 03/01/24 07:47
02/29/24 03/01/24 03/02/24
06:59 06:59 06:59
Actual Weight 65.374 kg
03/01/24 05:12
03/01/24 05:12
PT 29.3 Sec (11.4-14.6) H 03/01/24 05:12
INR 2.73 03/01/24 05:12
APTT 82.7 Sec (23.4-35.0) H 02/28/24 08:14
APTT Cancelled 02/28/24 08:14
Magnesium 2.0 mg/dl (1.6-2.3) 03/01/24 05:12
Triglycerides 114 mg/dl (10-149) 02/28/24 08:14
LDL Cholesterol, Calc 70 mg/dl 02/28/24 08:14
VLDL Cholesterol, Calc 22 mg/dl (0-30) 02/28/24 08:14
HDL Cholesterol 42 mg/dl 02/28/24 08:14
Digoxin < 0.4 ng/ml (0.8-2.0) L 02/28/24 08:14
02/27/24
12:35
Ltz-D-Rdpxarkgosk Pept 8020
LAB Results
02/27/24
12:35
Troponin I < 0.012
Physical Exam
Constitutional: No acute distress
Cardiovascular: Rhythm & rate is regular, Systolic murmur present and Other ([facility] S1)
Respiratory: Respiratory effort normal
GI: Soft
Neuro/Psych: Alert
Data Reviewed
-
Date of Service: March 01, 2024
Medical Decision Making: Reviewed Test Results
Echo: Report Reviewed by me
Medical Tests (PFT, Pathology etc): Report Reviewed by me
Labs: Labs Reviewed by me
--- NOTE | 2024-03-01 10:54 | W.PN.HOSP.TC ---
Today's Communication/Plan
-
see A/P
Assessment / Plan
Assessment / Plan
HPI: 89-year-old male with PMH severe aortic stenosis, MR s/p MVR, CHF, coronary artery disease, PAF status post pacemaker placement; p/w shortness of breath/ SIMON.
A/P:
# acute on chronic systolic CHF, may be related to underling severe
BNP 8020
Chest x-ray with mild central pulmonary vascular congestion, mild cardiomegaly
IV Lasix 40 mg BID currently on hold
updated echo 02/27 noted: EF 35-40%. Mechanical mitral valve, no mitral regurgitation. Severe aortic stenosis. Severe pulmonary hypertension with estimated PA pressure 75 to 80 mmHg. Compared with previous report 09/26/2023 estimated EF is reduced
(Previously 40 to 45%), PA pressure is increased (Previously 64 mmHg)
Cardiology on board
# Severe
# mechanical mitral valve replacement
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
Defer to Card for Coumadin for INR reversal
follow daily INR
# Wheezing likely due to acute bronchitis vs cardiac wheezing
CXR unrevealing
cont Decadron 4 mg BID today, Mucinex, DuoNeb
Anticipate short course of steroid
# Paroxysmal atrial fib
Cont Digoxin, Nadolol
# Essential hypertension
Cont Lisinopril with hold parameter
# CAD s/p CABG (2016)
stable without chest pain
# HLD
Simvastatin continued
# Mild Hyperkalemia, resolved
DVT prophylaxis- Heparin drip bridge when INR < 2.5
CODE STATUS- Full code
DW daughter at bedside
Anticipated Discharge: > 48 hours
Subjective/Interval History
-
Date of Service: March 01, 2024
Objective Data
-
Labs:
Laboratory Results
03/01/24
05:12
WBC 10.4
Hgb 12.6 L
Hct 37.8 L
Plt Count 177 D
PT 29.3 H
INR 2.73
Sodium 137
Potassium 4.7
Chloride 99
Carbon Dioxide 28
BUN 59 H
Creatinine 1.2
Glucose 156 H
Calcium 9.2
Vital Signs:
Vital Signs
Temp Pulse Resp BP Pulse Ox
36.5 C 66 16 160/67 95
03/01/24 07:47 03/01/24 07:47 03/01/24 07:47 03/01/24 07:47 03/01/24 07:47
I&O
02/29/24 03/01/24 03/02/24
06:59 06:59 06:59
Intake Total 960 / 960 1020 / 1020
Output Total 1000 / 1000 950 / 950
Balance -40 / -40 70 / 70
Review of Systems
-
All other systems: Reviewed and negative
Respiratory: Reports Wheezing; Denies Cough or Trouble Breathing
Physical Exam
-
General: Well Developed, Well Nourished, No Apparent Distress, Comfortable and Conversant; Negative Respiratory Distress
HEENT: Normocephalic, Atraumatic, Nose Appears Normal and Ears Appear Normal; Negative Oxygen
Respiratory: Clear to Auscultation, Wheezes and Non Labored Respirations; Negative Crackles or Accessory Resp Muscle Use
Cardiac: Regular Rhythm and S1/S2
GI: Soft, Nontender, Nondistended and Normal Bowel Sounds
Skin: Warm and Dry
Neuro: Awake, Alert, Oriented and AO x 3
Psych: Calm and Intact Judgement/Insight
Data Reviewed
-
Diagnostic Radiology: Image personally visualized and interpreted and Report Reviewed by me
Labs: Labs Reviewed by me
[2024-03-01] MEDS: DECADRON 4 MG IV (12:13)
[2024-03-01] MEDS: LANOXIN 125 MCG PO (12:16)
[2024-03-02] VITALS (9 sets, daily range): BP systolic 107–149; BP diastolic 48–82; BMI 22.7
[2024-03-02] MEDS: DECADRON 4 MG IV ×2 (00:05→13:31)
[2024-03-02] MEDS: ROBITUSSIN 200 MG PO (03:22)
[2024-03-02 05:29] LABS: Hematocrit 37.7 % (39.0-52.0); Hemoglobin 12.8 g/dL (13.0-18.0); Mean Corpuscular Hgb 29.9 pg (27.0-31.0); Mean Corpuscular Volume 88.1 fL (80.0-94.0); Mean Platelet Volume 10.1 fL (7.4-10.4); Platelet Count 203 10^3/uL (130-400); Red Blood Cell Count 4.28 10^6/uL (4.70-6.10); Red Cell Dist. Width 13.2 % (11.5-14.5); White Blood Cell Count 12.6 10^3/uL (4.8-10.8)
[2024-03-02 05:39] LABS: INR 2.63; PT 28.4 Sec (11.4-14.6)
[2024-03-02 06:12] LABS: Blood Urea Nitrogen 57 mg/dl (9-20); Calcium 9.4 mg/dl (8.4-10.2); Carbon Dioxide 26 mmol/L (22-30); Chloride 100 mmol/L (98-107); Estimated Creatinine Clearance 43 ml/min; Glucose 153 mg/dl (70-99); Magnesium 2.1 mg/dl (1.6-2.3); Potassium 4.9 mmol/L (3.5-5.1); Sodium 137 mmol/L (135-145); eGFR > 60.00
--- NOTE | 2024-03-02 07:09 | W.PN.CD ---
Addendum entered and electronically signed by Yury Peralta DO 03/02/24 12:33:
Cardiac catheterization demonstrated no significant advancement in his coronary disease as well as a patent bypass graft to the large obtuse marginal. The mitral valve appears to be functioning normally. Wedge pressure is severely elevated at 30
mmHg.
We will continue workup for TAVR.
Continue diuresis with furosemide 80 mg daily, possibly twice daily.
Resume warfarin this evening.
Original Note:
Today's Communication / Plan
-
Cardiac catheterization today to clarify coronary anatomy and filling pressures as part of TAVR workup.
Impression / Plan
-
Impression/Plan: 89M severe aortic stenosis, mechanical mitral valve replacement (#35 [place] mechanical MVR, on warfarin), HFmrEF, CAD s/p 1V CABG (SVG to OM during MVR), permanent atrial fibrillation, SSS s/p Medtronic single-chamber pacemaker,
dyslipidemia, and former smoker who presented to the emergency department with a chief complaint of shortness of breath consistent with acute on chronic heart failure.
#Heart failure with mildly reduced ejection fraction
-Acute on chronic.
-LVEF 40-45%, now down to 35-40%.
-Heart failure education.
-GDMT. Case management consult.
-We will guide our diuretics based off of his filling pressures.
#SOB
-Significant improvement.
#Severe aortic stenosis
-Plan for R/L cardiac catheterization this admission.
-Heparin bridge as below (INR pending).
#Mechanical mitral valve
-Chronic, stable.
-He is on warfarin with INR managed by our office.
-Goal INR 2.5-3.5.
-Hold warfarin and transition to heparin drip if/when INR <2.5.
#Permanent atrial fibrillation
-Chronic, stable.
-Rate control nadolol and digoxin.
-Oral anticoagulation: Warfarin (mechanical mitral valve replacement).
-[id number] score at least 4 (CHF, age x2, vascular disease).
#Hyperkalemia
-Resolved.
#SSS
-S/P Medtronic single-chamber PPM, followed in our outpatient device clinic, TIMBER SIZER OPERATOR 93% with normal lead function on interrogation 02/08/2024, MRI conditional.
#Coronary artery disease
-Chronic.
-s/p CABG 1V CABG (SVG to OM) during MVR.
#Dyslipidemia
-Chronic, stable.
-Continue simvastatin.
#Former smoker
-Continued cessation recommended.
Personal Lines Sales Rep: Dr. Morrissey
Subjective/Interval History:
DATA:
TTE, 02/27/24:
Moderately reduced left ventricular systolic function.
Left ventricular ejection fraction is 35-40%.
Mechanical mitral valve with a mean gradient of 4 mmHg and no mitral
regurgitation.
Severe aortic stenosis. Peak gradient 42 mmHg. Mean gradient 23 mmHg.
Dimensionless index 0.2.
Severe pulmonary hypertension with estimated PA pressure 75 to 80 mmHg.
When compared with the previous report 09/26/2023 estimated EF is reduced.
Previously 40 to 45%. Estimated PA pressure is increased. Previously 64 mmHg.
Physical Exam
Vital Signs/Labs
Vital Signs
Temp Pulse Resp BP Pulse Ox
36.4 C 61 12 149/61 93
03/02/24 03:00 03/02/24 03:00 03/02/24 03:00 03/02/24 03:00 03/02/24 03:00
02/29/24 03/01/24 03/02/24
11:59 11:59 11:59
Actual Weight 65.374 kg 65.544 kg
03/02/24 05:18
03/02/24 05:18
PT 28.4 Sec (11.4-14.6) H 03/02/24 05:18
INR 2.63 03/02/24 05:18
APTT 82.7 Sec (23.4-35.0) H 02/28/24 08:14
APTT Cancelled 02/28/24 08:14
Magnesium 2.1 mg/dl (1.6-2.3) 03/02/24 05:18
Triglycerides 114 mg/dl (10-149) 02/28/24 08:14
LDL Cholesterol, Calc 70 mg/dl 02/28/24 08:14
VLDL Cholesterol, Calc 22 mg/dl (0-30) 02/28/24 08:14
HDL Cholesterol 42 mg/dl 02/28/24 08:14
Digoxin < 0.4 ng/ml (0.8-2.0) L 02/28/24 08:14
02/27/24
12:35
Mjv-I-Iageqceifow Pept 8020
Physical Exam
Constitutional: No acute distress and Comfortable
EENT: Anicteric and Moist mucous membranes
Cardiovascular: Pedal edema is absent, JVD pressure is normal, Rhythm/rate is irregular, Systolic murmur present and S1S2 is normal (S1 is crisp and mechanical.)
Respiratory: Respiratory effort normal, Lungs clear to auscul., Wheeze Absent, Crackles Absent and Rhonchi Absent
GI: Soft, Distention absent, Flat, Non tender and Normal bowel sounds
Neuro/Psych: AO x 3
Data Reviewed
-
Date of Service: March 02, 2024
Medical Decision Making: Reviewed Test Results, Independent Historian Assessment and Test Interpretation
EKG: Tracing Personally Visualized and interpreted and Report Reviewed by me
Echo: Tracing Personally Visualized and interpreted and Report Reviewed by me
X-Ray/CT/US/MRI/NUC/PET: Image Personally Visualized and interpreted and Report Reviewed by me
Medical Tests (PFT, Pathology etc): Image Personally Visualized and interpreted and Report Reviewed by me
Labs: Labs Reviewed by me
Old Records: Reviewed
[2024-03-02] MEDS: LOW STRENGTH ASPIRIN 81 MG PO (08:01)
[2024-03-02] MEDS: MUCINEX 1200 MG PO (08:02)
[2024-03-02] MEDS: CORGARD PO (08:02)
[2024-03-02] MEDS: ZESTRIL PO (08:02)
[2024-03-02] MEDS: LIPITOR 10 MG PO (08:02)
[2024-03-02] MEDS: FARXIGA 10 MG PO (08:03)
--- NOTE | 2024-03-02 11:55 | ITS.CL.CATH ---
Buffing Wheel Operator - Catheterization
Cardiac Catheterization
Procedure Report:
CARDIAC CATHETERIZATION REPORT
Date of Procedure: 03/02/2024
Referring: William Morrissey M.D.
Indication: Severe aortic valve stenosis, worsening cardiomyopathy.
PROCEDURE:
1. Right heart catheterization.
2. Coronary angiography.
3. Bypass angiography.
ACCESS:
5 [place] left radial artery. The radial artery is severely calcified and stenotic, only allowing the 5Fr sheath approximately 1/[address] the vessel and requiring a Baby-J wire to advance to the aorta.
5 [place] left antecubital vein. The pacemaker wire prevented advancement of the RHC from the left antecubital site.
5 [place] right antecubital vein using a modified Seldinger technique under ultrasound guidance.
CATHETERS:
1. 5 [place] balloon wedge.
2. 4 [place] JR4.
3. 4 [place] JL 4.
4. 4 [place] AL-1.
HEMODYNAMIC DATA
Weight (kg): 65.3
AO (s/d/x mmHg): 151/55/93
LV (s/x mmHg): Not obtained.
PCWP (a/v/x mmHg): 35/40/30
PA (s/d/x mmHg): 63/25/34
RV (s/x mmHg): 63/13
RA (a/v/x mmHg): 16/14/13
SVC SvO2 (%): 59.0
PA SvO2 (%): 63.1
SaO2 (%): 96.6
Hbg (g/dL): 12.5
CO (L/min): 3.37
CI (L/min/m2): 1.92
TPG (mmHg): 4
PVR (Ware Units): 1.19
SVR (dynes*seconds*cm^-5): 1899
AVO2 Diff (Volume %): 5.70
AV gradient (x, mmHg): Not obtained.
AV area (cm2): Not obtained.
LEFT VENTRICULOGRAPHY: Not performed. Mechanical mitral valve is observed. The leaflets demonstrate normal excursion.
CORONARY ANGIOGRAPHY
Dominance: Right.
Left Main: Normal size, bifurcating vessel. There is no coronary artery disease.
LAD: Normal size vessel giving rise to 1 significant diagonal. There is no significant coronary artery disease.
Ramus: Congenitally absent.
Circumflex: Normal size vessel giving rise to 1 large obtuse marginal. This marginal subsequently bifurcates into a smaller upper branch and a more substantial lower branch. There is a 70+% lesion in the lower branch with competitive flow.
RCA: Normal size, dominant vessel with a significant posterolateral arcade. There is no coronary artery disease.
BYPASS GRAFT ANGIOGRAPHY
SVG to OM1: Normal size graft with end-to-side anastomosis to the lower branch of OM1. There is no evidence of stenosis or graft degeneration.
INTERVENTIONS
None.
Closure Device: Vascular band for the left radial artery, manual pressure for the bilateral antecubital veins.
Radiation dose (mGy): 460.53
DAP (cm2.Gy): 39.7802
Fluoroscopy time (minutes): 9.7
Sedation time (minutes): 67
CONCLUSIONS:
1. Right dominant circulation with a 70+% stenosis of the lower branch of OM1 status post single-vessel bypass with a patent SVG to OM1 with no evidence of degeneration.
2. Severely elevated filling pressures (PCWP = 30 mmHg at 65.3 kg).
3. Status post mechanical mitral valve replacement with normal leaflet excursion.
4. Severe aortic valve stenosis by echocardiography.
5. 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
6. 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
RECOMMENDATIONS:
1. Expectant management after cardiac catheterization via left radial and bilateral antecubital approach.
2. Limited weight bearing on the left wrist for one week.
3. Continue diuresis.
4. TAVR evaluation.
5. Further cardiac catheterization should be performed via femoral approach given the severe calcification of the left radial artery and the inability to pass 5 [place] diagnostic catheters, making it highly unlikely that any therapeutic catheter
would pass.
6. Future right heart catheterizations should be performed via the femoral system or the right antecubital system given the difficulty in traversing the left subclavian vein with permanent pacemaker.
Copy to: William Morrissey M.D., Yinka Lemon M.D.
Yury Peralta DO, FACC, FACP
[2024-03-02] MEDS: LANOXIN 125 MCG PO (13:31)
--- NOTE | 2024-03-02 14:32 | W.PN.HOSP.TC ---
Today's Communication/Plan
-
possible d/c later today
Assessment / Plan
Assessment / Plan
HPI: 89-year-old male with PMH severe aortic stenosis, MR s/p MVR, CHF, coronary artery disease, PAF status post pacemaker placement; p/w shortness of breath/ SIMON.
acute on chronic systolic CHF, may be related to underling severe --BNP 8020--needs further diuresis--s/p cardiac cath today--lasix 80 mg daily to BID if weight gain
updated echo 02/27 noted: EF 35-40%. Mechanical mitral valve, no mitral regurgitation. Severe aortic stenosis. Severe pulmonary hypertension with estimated PA pressure 75 to 80 mmHg. Compared with previous report 09/26/2023 estimated EF is reduced
(Previously 40 to 45%), PA pressure is increased (Previously 64 mmHg)
Cardiology on board
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
Wheezing likely due to acute bronchitis vs cardiac wheezing--CXR unrevealing--cont Decadron 4 mg BID today, Mucinex, DuoNeb--Anticipate short course of steroid
Paroxysmal atrial fib--Cont Digoxin, Nadolol
Essential hypertension--Cont Lisinopril with hold parameter
CAD s/p CABG (2016)--stable without chest pain
HLD--Simvastatin continued
Mild Hyperkalemia, resolved
DVT prophylaxis- Heparin drip bridge when INR < 2.5
CODE STATUS- Full code
Anticipated Discharge: Within 24 hours
Subjective/Interval History
-
Date of Service: March 02, 2024
pt having trouble with bleeding from wrist cath sites--had cath today
Objective Data
-
Labs:
Laboratory Results
03/02/24
05:18
WBC 12.6 H
Hgb 12.8 L
Hct 37.7 L
Plt Count 203
PT 28.4 H
INR 2.63
Sodium 137
Potassium 4.9
Chloride 100
Carbon Dioxide 26
BUN 57 H
Creatinine 1.1
Glucose 153 H
Calcium 9.4
Vital Signs:
max temp for 24 hours
03/02/24
07:53
Temp 98 F
Vital Signs
Temp Pulse Resp BP Pulse Ox
97.7 F 63 16 124/50 96
03/02/24 13:50 03/02/24 13:50 03/02/24 13:50 03/02/24 13:50 03/02/24 13:50
I&O
03/01/24 03/02/24 03/03/24
06:59 06:59 06:59
Intake Total 1020 / 1020 900 / 900
Output Total 950 / 950 1530 / 1530
Balance 70 / 70 -630 / -630
Review of Systems
-
All other systems: Reviewed and negative
Physical Exam
-
General: Well Developed, Well Nourished and No Apparent Distress
HEENT: Normocephalic and Atraumatic
Respiratory: Clear to Auscultation; Negative Wheezes or Rhonchi
Cardiac: Regular Rhythm, S1/S2 and Murmur
GI: Soft, Nontender, Nondistended and Normal Bowel Sounds
Musculoskeletal: No Clubbing, No Cyanosis and No Edema
Neuro: Awake and Alert
Psych: Calm
--- NOTE | 2024-03-02 15:10 | CONSULT.STRU ---
Consultation
-
Date/Time Consultation Requested: 03/02/2024 1200
Date/Time Consultation Performed: 03/02/2024 1400
Requesting Provider: Dr. Yury Peralta
Performing Provider: CYNDY Jorge
Reason for Consultation: Aortic stenosis/ TAVR evaluation
Patient History
Physicians
Family Physician: Dr. Yinka Lemon
Outpatient Assurance Sourcing Manager: Dr. William Morrissey
Primary Assurance Sourcing Manager: Dr. William Morrissey
History of Present Illness
Julius Buckley is a very pleasant 89 year old male with severe aortic stenosis. Past medical history is notable for mitral valve replacement (rheumatic disease, on warfarin), HFmrEF, CAD (non obstructive), permanent atrial fibrillation, SSS s/p
Medtronic single-chamber pacemaker, dyslipidemia, and former smoker. He presented to the emergency department with a chief complaint of shortness of breath associated with a productive cough and yellow mucous. It started a few days prior to his
admission and had been getting worse. He was unable to lay flat without severe shortness of breath. Prior to this he does state he has noted not being able to walk back uup his driveway without stopping because of shortness of breath. He had
considered evaluation for TAVR, however this was put on hold because he was caring for his . She has and now is willing to proceed with evaluation. He is now in acute on chronic heart failure. His most recent echocardiogram is
notable for EF 35-40%, severe aortic stenosis with PG/M/23, JENN: 0.7, severe pulmonary HTN with PA pressure 75-80mmHg. Cardiac cath today shows right dominant circulation with a 70+% stenosis of the lower branch of OM1 status post single-vessel
bypass with a patent SVG to OM1 with no evidence of degeneration. Severely elevated filling pressures (PCWP = 30 mmHg at 65.3 kg).
Reviewed the pathophysiology of aortic stenosis with the patient. Explained the treatment options of SAVR and TAVR. Explained the TAVR evaluation process including follow up BMP, CT TAVR scan, CT surgery consult and Heart Team discussion. Provided
with script for BMP next week, script and appointment for CT TAVR, Consult appointment with Dr. Scott and a copy of the TAVR education booklet with contact information. Allowed for and answered questions
Past Medical History
Past Medical History: Arrhythmias (h/o SSS ), Atrial Fib (permanent), CAD, CHF (acute on chronic), SIMON, Hypercholesterolemia, Valvular Disease (h/o mechanical MVR for rheumatic valve) and Other (cardiomyopathy, h/o GI bleed, chronic anticoagulation
on Coumadin)
Past Surgical History
Past Surgical History: CABG (x1- SVG to OM1 ), Valve (mechanical mitral valve 04/13/2017) and Other (Hernia repair , laproscopic TEP repair with mesh of recurrent RIH and femoral hernia 2016, bilateral inguinal hernia repairs 2009, PPM gen
change 04/30/2019)
Dental History
Full dentures
Family History
Mother: at Age (89, DM, CAD)
Father: at Age (90)
Family Medical History: Cancer (colon)
Social History
Alcohol: None
Drug: None
Tobacco: Former Smoker
Personal: (recently lost his of 50 years)
Living: With Family (lives between his brother's house and his daughter's house)
Employment: Retired
Allergies
Allergy/AdvReac Type Severity Reaction Status Date / Time
quinidine [Quinidine] Allergy 'made my Verified 02/27/24 12:10
heart go
really
crazy'
Home Medications
�Medication �Instructions �Recorded �Confirmed �Type
digoxin 125 mcg (0.125 mg) tablet 0.125 mg PO DAILY Heart Failure 04/30/19 02/27/24 History
simvastatin 20 mg tablet 20 mg PO DAILY High cholesterol 07/18/20 02/27/24 History
lisinopril 5 mg tablet 5 mg PO DAILY Blood pressure 07/30/20 02/27/24 History
nadolol 80 mg tablet 80 mg PO BID Blood Pressure 02/27/24 02/27/24 History
therapeutic multivitamin 1 tab PO DAILY Supplement 02/27/24 02/27/24 History
vitamins A,C,H-lknd-wfopgb 4,296 1 cap PO DAILY Supplement 02/27/24 02/27/24 History
mcg-226 mg-90 mg capsule
(PreserVision AREDS)
warfarin 2.5 mg tablet 1.25 mg PO QPM Blood Clot 02/27/24 03/02/24 History
Prevention/Tx
warfarin 2.5 mg tablet 2.5 mg PO MOTUTHFR@1800 Blood Clot 02/27/24 02/27/24 History
Prevention/Tx
aspirin 81 mg chewable tablet 81 mg PO DAILY Blood clot 03/02/24 Rx
(Children's Aspirin) prevention/tx #0 tabs
dapagliflozin propanediol 10 mg 10 mg PO DAILY Heart Failure #30 03/02/24 Rx
tablet tabs
furosemide 40 mg tablet 80 mg (2 x 40 mg) PO DAILY Fluid 03/02/24 02/27/24 Rx
Retention/Swelling #0 tabs
guaifenesin 600 mg tablet, 1,200 mg (2 x 600 mg) PO Q12 #0 03/02/24 Rx
extended release 12 hr tabs
STS%
STS %: 9.53%
Review of Systems
-
History Source: Patient
General: Reports Fatigue
HEENT: Reports No Symptoms
Respiratory: Reports SOB, SIMON and Cough
Cardiac: Reports No Symptoms
Abdomen/GI: Reports Other (h/o GI bleed)
: Reports No Symptoms
Musculoskeletal: Reports No Symptoms and Edema
Skin: Reports Itching (h/o LE )
Neurological: Reports No Symptoms
Vascular: Reports No Symptoms
Physical Exam
Vital Signs
Temp 97.7 F 03/02/24 13:50
Temp route: Oral 03/02/24 13:50
Pulse 63 03/02/24 13:50
Rhythm: V paced (venticular) 03/02/24 13:54
With- Bundle Branch Block Confi, 100 % Paced, Prolonged QT interval 03/02/24 13:54
Resp Rate 16 03/02/24 13:50
Blood pressure 124/50 03/02/24 13:50
Blood pressure extremity used: Right forearm 03/02/24 13:50
Position: Lying 03/02/24 13:50
SaO2 96 03/02/24 13:50
Oxygen Mode of Delivery Room air 03/02/24 13:54
Can the patient verbally communicate their pain? Yes 03/02/24 13:54
Actual Weight 65.544 kg 03/02/24 06:00
Body Mass Index (BMI) 22.7 03/02/24 06:00
Labs
03/02/24 05:18
03/02/24 05:18
PT 28.4 Sec (11.4-14.6) H 03/02/24 05:18
APTT 82.7 Sec (23.4-35.0) H 02/28/24 08:14
APTT Cancelled 02/28/24 08:14
Troponin I < 0.012 ng/ml 02/27/24 12:35
Pjd-R-Oofzfrqlisn Pept 8020 pg/ml 02/27/24 12:35
Diagnostic Studies
03/02/2024 Left and Right Heart Cath
HEMODYNAMIC DATA
Weight (kg):65.3
AO (s/d/x mmHg): 151/55/93
LV (s/x mmHg): Not obtained.
PCWP (a/v/x mmHg): 35/40/30
PA (s/d/x mmHg): 6325/34
RV (s/x mmHg): 63/13
RA (a/v/x mmHg):
SVC SvO2 (%):59.0
PA SvO2 (%):63.1
SaO2 (%):96.6
Hbg (g/dL):12.5
CO (L/min): 3.37
CI (L/min/m2): 1.92
TPG (mmHg): 4
PVR (Ware Units): 1.19
SVR (dynes*seconds*cm^-5): 1899
AVO2 Diff (Volume %): 5.70
AV gradient (x, mmHg):Not obtained.
AV area (cm2):Not obtained.
LEFT VENTRICULOGRAPHY: Not performed. Mechanical mitral valve is observed. The leaflets demonstrate normal excursion.
CORONARY ANGIOGRAPHY
Dominance: Right.
Left Main: Normal size, bifurcating vessel. There is no coronary artery disease.
LAD: Normal size vessel giving rise to 1 significant diagonal. There is no significant coronary artery disease.
Ramus:Congenitally absent.
Circumflex: Normal size vessel giving rise to 1 large obtuse marginal. This marginal subsequently bifurcates into a smaller upper branch and a more substantial lower branch. There is a 70+% lesion in the lower branch with competitive flow.
RCA: Normal size, dominant vessel with a significant posterolateral arcade. There is no coronary artery disease.
BYPASS GRAFT ANGIOGRAPHY
SVG to OM1:Normal size graft with end-to-side anastomosis to the lower branch of OM1. There is no evidence of stenosis or graft degeneration.
INTERVENTIONS
None.
Closure Device: Vascular band for the left radial artery, manual pressure for the bilateral antecubital veins.
Radiation dose (mGy): 460.53
DAP (cm2.Gy): 39.7802
Fluoroscopy time (minutes):9.7
Sedation time (minutes):67
CONCLUSIONS:
1. Right dominant circulation with a 70+% stenosis of the lower branch of OM1 status post single-vessel bypass with a patent SVG to OM1 with no evidence of degeneration.
2. Severely elevated filling pressures (PCWP = 30 mmHg at 65.3 kg).
3. Status post mechanical mitral valve replacement with normal leaflet excursion.
4. Severe aortic valve stenosis by echocardiography.
5. 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
6. 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
RECOMMENDATIONS:
1. Expectant management after cardiac catheterization via left radial and bilateral antecubital approach.
2. Limited weight bearing on the left wrist for one week.
3. Continue diuresis.
4. TAVR evaluation.
5. Further cardiac catheterization should be performed via femoral approach given the severe calcification of the left radial artery and the inability to pass 5 Malagasy diagnostic catheters, making it highly unlikely that any therapeutic catheter
would pass.
6. Future right heart catheterizations should be performed via the femoral system or the right antecubital system given the difficulty in traversing the left subclavian vein with permanent pacemaker.
02/27/2024 Echocardiogram
CONCLUSIONS
Moderately reduced left ventricular systolic function.
Left ventricular ejection fraction is 35-40%.
Mechanical mitral valve with a mean gradient of 4 mmHg and no mitral
regurgitation
Severe aortic stenosis. Peak gradient 42 mmHg. Mean gradient 23 mmHg.
Dimensionless index 0.2
Severe pulmonary hypertension with estimated PA pressure 75 to 80 mmHg
When compared with the previous report 09/26/2023 estimated EF is reduced.
Previously 40 to 45%. Estimated PA pressure is increased. Previously 64 mmHg
Indications:
Severe , Heart failure
Rhythm: Other
Portable Study: No
Technical Quality: Fair
Contrast: None
BP: 112 / 95
PROCEDURE
A complete Transthoracic Echocardiogram was performed utilizing two-dimensional
evaluation with color flow and spectral Doppler analysis.
FINDINGS
Left Ventricle
Normal left ventricular chamber size. Moderately reduced left ventricular
systolic function. Global hypokinesis. Mild concentric left ventricular
hypertrophy. Left ventricular ejection fraction is 35-40%. Diastolic function
indeterminate.
Right Ventricle
Normal right ventricular systolic function. ICD wire seen in right ventricle.
Left Atrium
Indexed LA volume is severely abnormal (> 48 mL/m2).
Right Atrium
Mildly dilated right atrium.
Mitral Valve
mechanical valve with peak/mean 14/4mmHg. No mitral regurgitation is seen.
Aortic Valve
Dimensionless index 0.2Trileaflet aortic valve. Calcified aortic valve.
Thickened aortic valve with restricted leaflet motion. Peak/mean gradients
across the aortic valve are 42/23mmHg. Using an LVOT diameter of
Tricuspid Valve
Tricuspid valve opens normally. Mild tricuspid regurgitation. Estimated
pulmonary artery pressure of 75-80 mmHg.
Pulmonic Valve
Pulmonic valve opens normally.
Pericardium\\Pleura
Normal pericardium without effusion.
Aorta
The aortic root is of normal size.
Other Finding
The IVC is dilated in size and demonstrates normal respiratory variation.
Interatrial septum is intact with no evidence of shunting by color flow
Doppler.
MEASUREMENTS (Male / Female) Normal Values
2D ECHO
LV Diastolic Diameter PLAX 4.6 cm 4.2 - 5.9 / 3.9 - 5.3 cm
LV Systolic Diameter PLAX 3.6 cm
IVS Diastolic Thickness 1.2 cm 0.6 - 1.0 / 0.6 - 0.9 cm
LVPW Diastolic Thickness 1.2 cm 0.6 - 1.0 / 0.6 - 0.9 cm
LV Relative Wall Thickness 0.5
LVOT Diameter 2.0 cm
LV Ejection Fraction MOD BP 31.7 % >= 55 %
LV Stroke Volume MOD BP 42.8 cm3
LV Cardiac Index MOD BP 1886.3 cm3/min
LV Stroke Volume MOD 4C 43.5 cm3
LV Stroke Volume 4C AL 41.3 cm3
LV Stroke Volume MOD 2C 44.0 cm3
LV Stroke Volume 2C AL 49.1 cm3
LA Area 4C View 37.5 cm2 <= 20 cm2
LA Length 4C 7.6 cm
LA Volume 149.0 cm3 18 - 58 / 22 - 52 cm3
LA Volume Index 76.8 cm3/m2 16 - 34 cm3/m2
Aorta at Sinotubular Diameter 2.8 cm
Ascending Aorta Diameter 3.5 cm
Aorta at Sinuses Diameter 3.1 cm
M-MODE
TAPSE 2.2 cm
DOPPLER
AV Peak Velocity 323.0 cm/s
AV Peak Gradient 41.7 mmHg
AV Mean Gradient 23.0 mmHg
AV Velocity Time Integral 65.8 cm
AI Peak Velocity 452.5 cm/s
AI Peak Gradient 81.9 mmHg
AI Pressure Half Time 314.5 ms
LVOT Peak Velocity 60.1 cm/s
LVOT Peak Gradient 1.4 mmHg
LVOT Velocity Time Integral 15.3 cm
LVOT Stroke Volume 48.1 cm3
LVOT Stroke Volume Index 25.8 ml/m2 empty
LVOT Cardiac Index 2118.4 cm3/min\\m2
AV Area Cont Eq vti 0.7 cm2
AV Area Cont Eq pk 0.6 cm2
MV Peak Velocity 185.0 cm/s
MV Peak Gradient 13.7 mmHg
MV Mean Velocity 87.5 cm/s
MV Mean Gradient 4.0 mmHg
MV Area PHT 4.5 cm2
Mitral E Point Velocity 141.0 cm/s
LV E' Lateral Velocity 9.7 cm/s
Mitral E to LV E' Lateral Ratio 14.6
LV E' Septal Velocity 5.9 cm/s
Mitral E to LV E' Septal Ratio 24.0
TR Peak Velocity 402.0 cm/s
TR Peak Gradient 64.6 mmHg
Exam
General: Well Developed, No Apparent Distress and Comfortable
HEENT: Normocephalic and Moist Mucous Membranes
Neck: Trachea Midline
Respiratory: Clear; Negative Wheezes, Crackles, Rhonchi or Accessory Muscle Use
Cardiac: Irregular Rhythm and Murmur (Grade II murmur, mechanical click of mitral valve)
GI: Soft, Non Tender, Non Distended and Normal Bowel Sounds
Rectal: Deferred by Provider
Skin: Warm, Dry and Other (chronic appearing skin discoloration of bilateral LE)
Neuro: AO x 3, No Motor Deficits and Nonfocal/Grossly Intact
Extremities: Negative Lower Level Edema
Psych: Calm
Assessment / Plan
-
Procedure Type:�Isolated AVR
PERIOPERATIVE OUTCOME ESTIMATE %
Operative Mortality 9.53%
Morbidity & Mortality 24.9%
Stroke 8.96%
Renal Failure 5.04%
Reoperation 5.1%
Prolonged Ventilation 17.4%
Deep Sternal Wound Infection 0.121%
Long Hospital Stay (>14 days) 12.8%
Short Hospital Stay (<6 days)* 8.37%
Severe Aortic stenosis:
��������������� Continue evaluation for TAVR as outpatient
��������������� BMP 03/08/2024 at
��������������� CT TAVR scan 03/14/2024 at
��������������� CT surgery consult with Dr. Scott 03/14/2024
��������������� Heart team discussion at [facility]
Mechanical Mitral Valve
Will need to discuss possible pre-admission for TAVR for heparin bridge
Warfarin with INR managed by our CBC office.
Goal INR 2.5-3.5.
Heart failure with mildly reduced ejection fraction
NYHA class II-III
Acute on chronic.
LVEF 40-45%, now down to 35-40%.
Heart failure education.
GDMT per cardiology
Daily weights
Low sodium diet
Permanent atrial fibrillation
Chronic, stable.
Rate control nadolol and digoxin.
Oral anticoagulation: Warfarin (mechanical mitral valve replacement).
[id number] score at least 4 (CHF, age x2, vascular disease).
SSS
S/P Medtronic single-chamber PPM, followed in our outpatient device clinic, NETWORK CONTRACT MANAGER 93% with normal lead function on interrogation 02/08/2024, MRI conditional.
Coronary artery disease
s/p CABG 1V CABG (SVG to OM) during MVR 2016.
Data Reviewed
-
EKG: Report Reviewed by me (ATRIAL FIBRILLATION WITH FREQUENT ventricular-paced complexes LVH)
Racing Secretary And Handicapper: Report Reviewed by me and Discussed with Physician
Echo: Report Reviewed by me
Labs: Labs Reviewed by me
Old Records: Reviewed (Dr. Morrissey office consult from 01/25/2024)
Total Time Spent with Patient (in minutes): 40
--- NOTE | 2024-03-02 15:31 | CM ---
MD entered order for discharge.
Family will drive him home.
Offered VN he declined need.
PLAN Home no needs
--- NOTE | 2024-03-02 17:28 | W.DCSUMMARY ---
Discharge Summary
Discharge Data
Date of Admission: 02/27/24
Date of Discharge: 03/02/24
-
Pending Results: No
Hospital Course
Primary care physician : Yinka Lemon
Principal Discharge diagnosis : Acute on chronic systolic congestive heart failure related to underlying severe aortic stenosis
Chronic Discharge diagnosis : Paroxysmal atrial fibrillation, essential hypertension, coronary artery disease status post CABG, hyperlipidemia, mild hyperkalemia resolved
Hospital Course : Patient was an 89-year-old male with a history of aortic stenosis severe and paroxysmal atrial fibrillation who presented for evaluation of shortness of breath since the prior to admission. He stated he had mild short of
breath with exertion. That worsened the night prior to admission. He was not able to sleep due to this. He denied headache, dizzy, or syncope. He denied fever, chills, congestion, cough. His proBNP was found to be elevated his chest x-ray
showed mild cardiomegaly and the patient was admitted.
Problem #1: Acute on chronic systolic congestive heart failure related to underlying severe aortic stenosis. Patient was admitted and seen in consultation by cardiology. Patient had an echocardiogram updated which showed an ejection fraction of 35
to 40% with a proBNP of 8020 and severe aortic stenosis. Compared with the previous echocardiogram his PA pressures were increased. Patient was started on IV Lasix for diuresis. Due to the severe aortic stenosis, patient underwent cardiac
catheterization for TAVR are evaluation. No interventions were done with this catheterization. TAVR are evaluation continues. Further catheterizations should be done through his femoral system given the fact that his left radial artery was
stenotic and it is unclear that a therapeutic catheter would pass. He has been cleared for discharge by cardiology with 80 mg of Lasix daily to be up to twice daily with weight gain. He should follow-up with all of the appointments as scheduled
for his TAVR evaluation.
Problem #2: All other medical issues. These include Paroxysmal atrial fibrillation, essential hypertension, coronary artery disease status post CABG, hyperlipidemia, mild hyperkalemia resolved. These medical issues were stable during his
hospitalization. Medications were continued as able. Patient did not need a heparin bridge as his INR did not fall less than 2.5. Coumadin has been restarted tonight.
Patient is stable for discharge home at this time. If there are any questions regarding this dictation or his hospital stay, please not hesitate to call. Our office number is [phone].
Time for discharge 31 minutes.
Important imaging findings :
ECHOCARDIOGRAM CONCLUSIONS:
Moderately reduced left ventricular systolic function.
Left ventricular ejection fraction is 35-40%.
Mechanical mitral valve with a mean gradient of 4 mmHg and no mitral
regurgitation
Severe aortic stenosis. Peak gradient 42 mmHg. Mean gradient 23 mmHg.
Dimensionless index 0.2
Severe pulmonary hypertension with estimated PA pressure 75 to 80 mmHg
When compared with the previous report 09/26/2023 estimated EF is reduced.
Previously 40 to 45%. Estimated PA pressure is increased. Previously 64 mmHg
Procedure findings :
CARDIAC CATHETERIZATION CONCLUSIONS:
1. Right dominant circulation with a 70+% stenosis of the lower branch of OM1 status post single-vessel bypass with a patent SVG to OM1 with no evidence of degeneration.
2. Severely elevated filling pressures (PCWP = 30 mmHg at 65.3 kg).
3. Status post mechanical mitral valve replacement with normal leaflet excursion.
4. Severe aortic valve stenosis by echocardiography.
5. 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
6. 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
Discharge Plan
-
Patient Disposition: Home (Routine Discharge)
Discharge Diagnosis/Procedures: Acute on chronic systolic congestive heart failure exacerbation likely related to underlying severe aortic stenosis status post cardiac cath, paroxysmal atrial fibrillation, essential hypertension, coronary artery
disease status post CABG in 2017, hyperlipidemia, hyperkalemia
Condition: Fair
Diet: 2 Gram Sodium and Restrict fluids to 64 oz
Activity: No strenuous activity
Additional Activity: No strenuous activity postcardiac catheterization, limited weightbearing on the left wrist for 1 week
Driving Restrictions: No driving for 24 hours
Bathing Restrictions: None
Blood Work: PLEASE HAVE BLOOD WORK (BMP) DRAWN ON 03/08/2024. THIS DOES NOT NEED TO BE FASTING. PLEASE HAVE RESULTS FAXED TO [phone].
Others Tests: A CT SCAN HAS BEEN SCHEDULED FOR YOU AT [facility] ON 03/14/2024 AT 9:30AM. PLEASE REPORT TO MAIN REGISTRATION 15 MINUTES AHEAD OF APPOINTMENT TO REGISTER. DO NOT EAT OR DRINK FOR 3 HOURS PRIOR. PLEASE BRING A COMPLETE LIST OF
YOUR MEDICATIONS WITH YOU.
Specialty Instructions: Weigh Daily- Call MD for wt gain/loss 3 lbs overnight/5 lbs in 1 week
Instructions: *CBC Heart Failure Instructions
Stand Alone Forms: DC Instructions- Cath/EP Lab
Referrals:
Mallory Dumont CRNP [Specified Professional Personl] - (As instructed)
Yinka Lemon MD [Family Provider] - in less than 1 week
William Morrissey MD [Active] - 04/23/24 11:20 am
Bartolo Scott MD [Active] - 03/14/24 10:30 am
Additional Discharge Medication Instructions: You will be discharged on furosemide (Lasix) 80 mg daily with instructions to go to twice daily if your weight goes up--likely will need to call your trace evidence technician for further instructions
Prescriptions:
New
aspirin [Children's Aspirin] 81 mg Tablet,Chewable
81 mg PO DAILY Qty: 0 0RF
dapagliflozin propanediol 10 mg Tablet
10 mg PO DAILY Qty: 30 0RF
guaifenesin 600 mg Tablet Extended Release 12hr
1,200 mg PO Q12 Qty: 0 0RF
Continued
digoxin 0.125 MG tablet
0.125 mg PO DAILY
simvastatin 20 MG tablet
20 mg PO DAILY
lisinopril 5 MG tablet
5 mg PO DAILY
nadolol 80 mg Tablet
80 mg PO BID
warfarin 2.5 mg Tablet
1.25 mg PO QPM
warfarin 2.5 mg Tablet
2.5 mg PO MOTUTHFR@1800
therapeutic multivitamin Tablet
1 tab PO DAILY
PreserVision AREDS 4,296 mcg-226 mg-90 mg Capsule
1 cap PO DAILY
Changed
furosemide 40 mg Tablet
80 mg PO DAILY Qty: 0 0RF
Discharge Orders:
Discharge Patient (As Directed); Ordered 03/02/24
Ordered By: Danielle Jin
Discharge Date and Time
Print Language: NEPALI
[2024-03-02] MEDS: COUMADIN 2.5 MG PO (17:45)
[2024-03-02] MEDS: COUMADIN 1.25 MG PO (17:45)
--- NOTE | 2024-03-05 14:17 | W.HF.CON ---
Heart Failure
- LV Function
Left ventricular function study result: LV Ejection fraction >35% - 40%
Ejection Fraction Percentage: 35-40
- ARNI
Patient already on ARNI: No
Heart Failure ARNI Contraindication: Mod/Severe Aortic Stenosis
- ACEI/ARB
Patient already on ACEI/ARB: Yes
- Beta Mg
Patient already on Evidence Based Beta Mg: No
Heart Failure Evidence Based Beta Mg: Patient Refusal
- Mineralocorticord Receptor Antagonist
Patient already on MRA: No
Heart Failure MRA Contraindication: Patient Refusal
- SGLT-2 Inhibitor
Patient already on SGLT-2 Inhibitor: Yes
- Afib Anticoagulation
Patient already on Anticoagulation for Afib: Yes
- NYHA CHF Classification
NYHA CHF Classification Level: Class III - Symptoms w/ min exertion, interferes w/ nml daily activity
- ACC/AHA Stage
ACC/AHA Stage: Stage C: Symptomatic Heart Failure
== END 2024-03-02 18:27 | disposition home or self-care (01) | DRG 286 ==
LOC: 3 WEST ACU 15:53
PROVIDERS: Emergency Medicine; Internal Medicine Cardiovascular Disease; Nurse Practitioner Gerontology; Physician Assistant; Registered Nurse; ADMITTING PHYSICIAN Internal Medicine; ATTENDING PHYSICIAN Internal Medicine; CONSULT PHYSICIAN Internal Medicine Cardiovascular Disease; EMERGENCY PHYSICIAN Emergency Medicine; FAMILY PHYSICIAN Internal Medicine
PROC: 4A023N6 Measurement of Cardiac Sampling and Pressure, Right Heart, Percutaneous Approach (ICD-10-PCS; 2024-03-02)
PROC: B2111ZZ Fluoroscopy of Multiple Coronary Arteries using Low Osmolar Contrast (ICD-10-PCS; 2024-03-02)
PROC: B2141ZZ Fluoroscopy of Right Heart using Low Osmolar Contrast (ICD-10-PCS; 2024-03-02)
DX: I11.0 Hypertensive heart disease with heart failure (principal); I50.23 Acute on chronic systolic (congestive) heart failure; I48.21 Permanent atrial fibrillation; I08.0 Rheumatic disorders of both mitral and aortic valves; Z87.891 Personal history of nicotine dependence; Z95.2 Presence of prosthetic heart valve; E87.5 Hyperkalemia
CPT/HCPCS: 71046; 80048; 80053; 80061; 80162; 82248; 83735; 83880; 84443; 84484; 85025; 85027; 85610; 85730; 87040; 93005; 93306; 93457; 94640; 96374; 99285; C1769; C1894; Q9967

== ENCOUNTER → 2024-03-08 08:47 | Outpatient (REF) | payer OTHER, SELFPAY ==
[2024-03-08 09:52] LABS: Blood Urea Nitrogen 52 mg/dl (9-20); Calcium 9.5 mg/dl (8.4-10.2); Carbon Dioxide 29 mmol/L (22-30); Chloride 101 mmol/L (98-107); Glucose 154 mg/dl (70-99); Potassium 4.8 mmol/L (3.5-5.1); Sodium 138 mmol/L (135-145); eGFR 58.17
== END ==
LOC: REG 08:47
PROVIDERS: ATTENDING PHYSICIAN Nurse Practitioner Adult Health; FAMILY PHYSICIAN Internal Medicine
DX: I35.0 Nonrheumatic aortic (valve) stenosis (principal)
CPT/HCPCS: 36415; 80048

== ENCOUNTER → 2024-03-14 09:18 | Outpatient (REF) | payer OTHER, SELFPAY | LOC: RAD 09:18 | PROVIDERS: ATTENDING PHYSICIAN Nurse Practitioner Adult Health; FAMILY PHYSICIAN Internal Medicine | DX: I35.0 Nonrheumatic aortic (valve) stenosis (principal) | CPT/HCPCS: 74174; 75572; Q9967 ==

== ENCOUNTER → 2024-03-16 13:17 | Outpatient (REF) | payer OTHER, SELFPAY | LOC: REG 13:17 | PROVIDERS: ATTENDING PHYSICIAN Nurse Practitioner Adult Health; FAMILY PHYSICIAN Internal Medicine Cardiovascular Disease | DX: R05.9 Cough, unspecified (principal) | CPT/HCPCS: 87070; 87147; 87205 ==

== ENCOUNTER 2024-04-24 09:54 | Inpatient (IN) | payer OTHER, SELFPAY ==
--- NOTE | 2024-04-24 09:15 | HPS.HSE ---
Addendum entered and electronically signed by Norman Cortez MD 04/24/24 12:06:
Patient seen and examined in collaboration with POTABLE WATER TREATMENT OPERATOR; agree with below.
-Patient admitted for TAVR; as a mechanical mitral valve and previous CABG, EF currently 35-40%.
-INR check; bridge with heparin if INR is less than 2.5.
Original Note:
Family Physician
-
Family Physician: Yinka Lemon
Logistics Manager: William Morrissey
Chief Complaint
-
Severe aortic stenosis
History of Present Illness
Julius Buckley is an 89-year-old male (known to Dr. 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
(LVEF 35-40%), former smoker, permanent atrial fibrillation and severe aortic stenosis who presents prior to TAVR for heparin bridge and cardiac optimization. He is feeling well today without chest pain nor shortness of breath. He reports his
weight has been stable on his home scale. He has chronic lower extremity edema which he reports is unchanged.
Medical History
Past Medical History
Past Medical History: Reports Arrhythmia ( permanent atrial fibrillation [on warfarin]), CAD (CABG 2008) and Valvular Disease (Mechanical mitral valve replacement [35 mm [place], 2008], severe aortic stenosis)
Past Surgical History: Reports Cardiac (CABG and mechanical mitral valve replacement 2008) and Other (Inguinal hernia repair [2009])
Social History
Tobacco: Former Smoker
Alcohol: None
Drug: None
Personal:
Living: With Family (Twin brother)
Employment: Retired
Family History
Family History: Not pertinent
Allergies / Home Medications
Allergies reflects when Allergies were last updated in [employer].
Home Medications with original date entered in [employer]
Allergy/Medication List:
Allergies:
Quinidine
Please note he does not have a printed home medication list with him. He reports no changes from his last office visit.
Home medication list:
Aspirin 81 mg daily
Corgard 80 mg twice daily
Digoxin 0.125 mg daily
Furosemide 40 mg and 80 mg on altering days
Lisinopril 5 mg daily
Multivitamin 1 tablet daily
PreserVision 1 capsule p.o. daily
Simvastatin 20 mg p.o. daily
Warfarin 3.75 mg SuWeThFr, 5 mg MoTu
Review of Systems
-
History Source: Patient
A 12 point ROS was completed and negative except as noted: Yes
Constitutional: Reports No Symptoms
EENT: Reports No Symptoms
Respiratory: Reports No Symptoms
Cardiac: Reports No Symptoms
Abdomen/GI: Reports No Symptoms
: Reports No Symptoms
Musculoskeletal: Reports No Symptoms
Skin: Reports No Symptoms
Neurological: Reports No Symptoms
Endocrine: Reports No Symptoms
Hematologic/Lymphatic: Reports No Symptoms
Psych: Reports No Symptoms
Physical Exam
Physical Exam
General: Well Developed, Well Nourished, No Apparent Distress and Comfortable
HEENT: NormoCephalic, Anicteric and Moist mucous membranes
Respiratory: Clear and Non Labored Respirations
Cardiac: S1/S2, Irregular Rhythm, Murmur (IV/) and Peripheral Edema (trace lower extremity)
Breast: Deferred by me
GI: Soft, Non Tender, Non Distended and Normal Bowel Sounds
Rectal: Deferred by Provider
Genito-urinary: No costovertebral tender
Musculoskeletal: No Clubbing and No Cyanosis
Skin: Warm and Dry
Neuro: AO x 3
Hematologic/Lymphatic: No Lymphadenopathy
Psych: Calm
Data Reviewed
-
Medical Tests (Nuc Med, Echo, EKG etc): Report Reviewed by me (Echocardiogram and cardiac catheterization as below)
Lab Data: Labs Reviewed by me
Old Records: Reviewed
Impression/Plan
-
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
presents prior to TAVR for heparin bridge and cardiac optimization
Logistics Manager: Dr. Morrissey
Severe aortic stenosis
-TAVR scheduled 04/26/2024
-Heparin bridge given mechanical mitral valve
HFrEF, NICM (LVEF 35-40%)
-CXR and proBNP pending
-GDMT as tolerated
-ACEI/ARB: Lisinopril 5 mg
-SGLT2: Jardiance is affordable, can consider
-Beta-aldo: Nadolol
-MRA: He had hyperkalemia when he presented to the ER 02/27/2024
-Trend daily weight, I/O, & BMP
Mitral valve replacement with mechanical valve (35-mm [place])
-Stable on most recent echocardiogram
-Start heparin drip if/when INR <2.5, await INR labs are pending
Permanent atrial fibrillation
-Continue rate control with nadolol and digoxin
-Oral Anticoagulation: He is on warfarin in the outpatient setting (mechanical mitral valve), bridging with heparin drip as above
-[id number]: score at least 4 (Heart failure, age 75 or more, Vascular disease)
Coronary artery disease
-CABG 2008 (SVG-OM)
-Stable without chest pain
-On aspirin and warfarin in the outpatient setting
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
Former smoker, continued cessation recommended
DATA:
Cardiac catheterization, 03/02/2024:
1. Right dominant circulation with a 70+% stenosis of the lower branch of
OM1 status post single-vessel bypass with a patent SVG to OM1 with no evidence of degeneration.
2. Severely elevated filling pressures (PCWP = 30 mmHg at 65.3 kg).
3. Status post mechanical mitral valve replacement with normal leaflet excursion.
4. Severe aortic valve stenosis by echocardiography.
5. 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
6. 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
Echocardiogram, 02/27/2024:
Moderately reduced left ventricular systolic function.
Left ventricular ejection fraction is 35-40%.
Mechanical mitral valve with a mean gradient of 4 mmHg and no mitral
regurgitation
Severe aortic stenosis. Peak gradient 42 mmHg. Mean gradient 23 mmHg.
Dimensionless index 0.2
Severe pulmonary hypertension with estimated PA pressure 75 to 80 mmHg
When compared with the previous report 09/26/2023 estimated EF is reduced.
Previously 40 to 45%. Estimated PA pressure is increased. Previously 64 mmHg.
[2024-04-24 10:11] VITALS: BP 129/57
[2024-04-24 10:39] VITALS: BMI 22.5
[2024-04-24 10:44] LABS: % Basophils 0.8 % (0-2); % Eosinophils 6.2 % (0-6); % Immature Granulocytes 0.3 % (0-0.5); % Lymphocytes 22.3 % (20.5-51.1); % Monocytes 9.6 % (1.7-9.3); % Neutrophils 60.8 % (42.2-75.2); Absolute Basophils 0.1 10^3/uL (0-0.2); Absolute Eosinophils 0.4 10^3/uL (0-0.7); Absolute Lymphocytes 1.5 10^3/uL (1.2-3.4); Absolute Monocytes 0.6 10^3/uL (0.1-0.6); Hematocrit 32.8 % (39.0-52.0); Hemoglobin 10.8 g/dL (13.0-18.0); Mean Corp Hgb Conc. 32.9 g/dL (33.0-37.0); Mean Corpuscular Hgb 29.2 pg (27.0-31.0); Mean Corpuscular Volume 88.6 fL (80.0-94.0); Mean Platelet Volume 10.2 fL (7.4-10.4); Nucleated Red Blood Cells % 0 % (-); Platelet Count 186 10^3/uL (130-400); White Blood Cell Count 6.5 10^3/uL (4.8-10.8)
[2024-04-24 10:54] LABS: PT 29.5 Sec (11.4-14.6)
[2024-04-24 10:55] LABS: APTT 46.9 Sec (23.4-35.0)
[2024-04-24 11:10] LABS: ALT (SGPT) 14 U/L (0-50); AST (SGOT) 27 U/L (17-59); Alkaline Phosphatase 76 U/L (38-126); Blood Urea Nitrogen 55 mg/dl (9-20); Calcium 9.6 mg/dl (8.4-10.2); Carbon Dioxide 30 mmol/L (22-30); Chloride 102 mmol/L (98-107); Direct Bilirubin 0.2 mg/dl (0.0-0.4); Estimated Creatinine Clearance 31 ml/min; Glucose 133 mg/dl (70-99); Potassium 5.2 mmol/L (3.5-5.1); Sodium 139 mmol/L (135-145); Total Bilirubin 0.8 mg/dl (0.2-1.3)
[2024-04-24 11:17] LABS: NT-proBNP 3200 pg/ml
--- NOTE | 2024-04-24 12:44 | W.PN.UPDATE ---
Update Note
Progress Note Update
Received tiger text from Dr. Weber that patient still has an opacity right lower lobe on his chest X-ray today. Could be residual disease from pneumonia, although underlying neoplasia/cancer is still possible. Discussed findings with Dr. Scott and
consult placed for Dr. Luna (Pulmonary). Will most likely plan to proceed with TAVR on pending input from Pulmonology.
--- NOTE | 2024-04-24 12:45 | CON.PUL ---
Consultation
Consultation Request
Date/Time Consultation Requested: 04/24/2024 - 1211
Date/Time Consultation Performed: 04/24/2024 - 1421
Requesting Provider: CYNDY Jorge
Performing Provider: Clark Luna MD
Reason for Consultation: RLL opacity on recent CT TAVR
Medical History
-
Chief Complaint: Awaiting TAVR
History of Present Illness:
89-year-old former tobacco smoker with a past medical history of CAD s/p CABG, A-fib, + mechanical MVR on Coumadin presents with elective TAVR. Patient recently hospitalized from 02/26 - 03/02/2024 due to acute decompensated heart failure due to
underlying severe aortic stenosis. Patient had echo on 02/27/2024 showing reduced LV systolic function with EF 35-40%, severe aortic stenosis with a mean gradient of 23 mmHg. At that time there was severe pulmonary hypertension with PASP of 75-80
mmHg. Patient recently had left heart catheterization on 03/02/2024 showing severely elevated filling pressures with PCWP of 30 mmHg, with low CI at 1.2, normal PVR at 1.19 Ware units, and mild pulmonary hypertension with mPAP of 34mmHg with RVSP
of 63mmHg. Patient was diuresed and discharged on 03/02/2024. While awaiting TAVR, he obtained a CT TAVR on 03/14/2024 showing a masslike opacity/consolidation in the RLL measuring up to 6 cm, as well as bronchial wall thickening with patchy
infiltrate seen in the LLL, concerning for bilateral lower lobe pneumonia. There is also mediastinal + hilar lymphadenopathy. He submitted a sputum Cx on 03/16/2024 that grew MSSA, and he was Tx with Augmentin x 7 days starting on 03/19/2024. Repeat
CXR today also shows persistent focal parenchymal opacity in the RLL. Pulmonary service now consulted for additional management/recommendations.
When I saw the pt today, he was in his room, sitting in his fernanda in NAD on room air breathing comfortably. 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 He is saturating 97% with HR 67 and BP 108/84. He denies chest pain,
TINEO, abd pain, N/V/f/c.
PMHx: Permanent A-fib, CAD s/p CABG (2008), severe aortic stenosis, mechanical mitral valve replacement (35mm [place] � 2008) on Coumadin, former tobacco use disorder
PSHx: CABG, mechanical mitral valve replacement, inguinal hernia repair
Past Medical History
Past Medical History: Other (Above as per HPI)
Past Surgical History: Other (Above as per HPI)
Social History
Tobacco: Former Smoker (Quit in 1968 - smoked 0.5-1PPD >10-15 years)
Alcohol: None
Drug: None
Personal:
Employment: Retired ([employer])
Family History
Family History: Reviewed & Not Pertinent
Allergies / Home Medications
Allergies
Allergy/AdvReac Type Severity Reaction Status Date / Time
quinidine [Quinidine] Allergy 'made my Verified 02/27/24 12:10
heart go
really
crazy'
Home Medications
�Medication �Instructions �Recorded �Confirmed �Last Taken �Type
digoxin 125 mcg (0.125 mg) tablet 0.125 mg PO DAILY Heart Failure 04/30/19 04/24/24 04/24/24 History
simvastatin 20 mg tablet 20 mg PO DAILY High cholesterol 07/18/20 02/27/24 02/26/24 History
lisinopril 5 mg tablet 5 mg PO DAILY Blood pressure 07/30/20 04/24/24 04/24/24 History
nadolol 80 mg tablet 80 mg PO BID Blood Pressure 02/27/24 04/24/24 04/24/24 History
therapeutic multivitamin 1 tab PO DAILY Supplement 02/27/24 02/27/24 02/26/24 History
vitamins A,C,H-gcke-pcnrdm 4,296 1 cap PO DAILY Supplement 02/27/24 02/27/24 02/26/24 History
mcg-226 mg-90 mg capsule
(PreserVision AREDS)
warfarin 2.5 mg tablet 1.25 mg PO QPM Blood Clot 02/27/24 03/02/24 02/26/24 History
Prevention/Tx
warfarin 2.5 mg tablet 2.5 mg PO MOTUTHFR@1800 Blood Clot 02/27/24 02/27/24 02/24/24 History
Prevention/Tx
aspirin 81 mg chewable tablet 81 mg PO DAILY Blood clot 03/02/24 Unknown Rx
(Children's Aspirin) prevention/tx #0 tabs
dapagliflozin propanediol 10 mg 10 mg PO DAILY Heart Failure #30 03/02/24 Unknown Rx
tablet tabs
furosemide 40 mg tablet 80 mg (2 x 40 mg) PO DAILY Fluid 03/02/24 02/27/24 02/26/24 Rx
Retention/Swelling #0 tabs
guaifenesin 600 mg tablet, 1,200 mg (2 x 600 mg) PO Q12 #0 03/02/24 Unknown Rx
extended release 12 hr tabs
Review of Systems
-
History Source: Patient
All other systems: Negative unless noted
Vitals / Labs / Diagnostic Testing
Vital Signs
Temp Pulse Resp BP Pulse Ox
98.9 F 67 18 129/57 97
04/24/24 10:39 04/24/24 10:15 04/24/24 10:39 04/24/24 10:11 04/24/24 10:52
Lab Data
04/24/24 10:30
04/24/24 10:30
Laboratory Results
04/24/24
10:28
PT 29.5 H
INR 2.80
APTT 46.9 H
Diagnostic Testing:
Physical Exam
-
HEENT: Normocephalic, Anicteric and Moist Mucous Membranes
Cardiovascular: S1/S2, Murmur (+KAREY, grade IV/) and Peripheral Edema (negative)
Respiratory: Wheeze (negative), Rales (R-hemithorax at base to middle lung field), Rhonchi (negative) and Non-Labored Respirations
GI: Soft, Non Distended, Non Tender and Normal Bowel Sounds
Neurology: Awake, Alert and Tremors (negative)
Skin: Warm and Dry
General: Respiratory Distress (negative), Comfortable, Chills (negative) and Sweats (negative)
Assessment
-
Assessment: 89-year-old former tobacco smoker with a past medical history of CAD s/p CABG, A-fib, + mechanical MVR on Coumadin presents with elective TAVR. Patient recently hospitalized from 02/26 - 03/02/2024 due to acute decompensated heart
failure due to underlying severe aortic stenosis. Patient had echo on 02/27/2024 showing reduced LV systolic function with EF 35-40%, severe aortic stenosis with a mean gradient of 23 mmHg. At that time there was severe pulmonary hypertension with
PASP of 75-80 mmHg. Patient recently had left heart catheterization on 03/02/2024 showing severely elevated filling pressures with PCWP of 30 mmHg, with low CI at 1.2, normal PVR at 1.19 Ware units, and mild pulmonary hypertension with mPAP of
34mmHg with RVSP of 63mmHg. Patient was diuresed and discharged on 03/02/2024. While awaiting TAVR, he obtained a CT TAVR on 03/14/2024 showing a masslike opacity/consolidation in the RLL measuring up to 6 cm, as well as bronchial wall thickening
with patchy infiltrate seen in the LLL, concerning for bilateral lower lobe pneumonia. There is also mediastinal + hilar lymphadenopathy. Repeat CXR today also shows persistent focal parenchymal opacity in the RLL. Pulmonary service now consulted
for additional management/recommendations.
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
Impression:
#Abnormal CT TAVR with RLL masslike opacity with LLL bronchial wall thickening/infiltrate, concerning for multifocal pneumonia however unable to rule out underlying neoplasm in the RLL
#Recent sputum culture growing MSSA on 03/16/2024 Tx with Augmentin x 7 days
#Severe aortic stenosis awaiting TAVR
#Chronic systolic heart failure/chronic HFrEF
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
#CAD s/p CABG
#Acute kidney injury (Baseline Cr: 1.1)
#Former tobacco use disorder
#Permanent A-fib
Plan:
- Patient is not on supplemental oxygen and saturating 97% on room air. No leukocytosis and afebrile; doubtful patient any has a persistent pneumonia however RLL persistent opacification is concerning for neoplasm
- Recommend repeating CT chest now; even if RLL opacity persists, do not believe that this would pose a threat to him obtaining a TAVR
-Will discuss results of his CT chest with the patient and get his opinion on diagnosis with robotic bronchoscopy as well as treatment; if patient would not want to treat lesion with chemotherapy, immunotherapy versus radiation versus surgery,
depending on staging, then may not be worth doing diagnosis at all. Will need to have a more in-depth discussion with the patient after CT chest is done
- In the interim, maintain SpO2 >90-94% with supplemental O2 as needed
- Incentive spirometer
- Replete electrolytes with K>4, Mg>2
- Maintain euglycemia with goal BG >100 and <180
- prn nebulized bronchodilators
- DVT ppx
Pulmonary service will continue to follow along. I will arrange for outpatient follow up with me as well given his abnormal CT findings.
Total time spent today was 55 minutes for this encounter. Time includes reviewing laboratory test/imaging results, reviewing pertinent medical records, obtaining and reviewing medical history, performing an appropriate exam, ordering medications,
tests and procedures. Time also includes documentation of this encounter, coordinating patient care and communicating with other healthcare professionals. Total time does not include separately billed tests performed on this date of service.
Data:
CXR 04-24-2024:
Focal parenchymal opacity within the right lower lobe. This could represent residual parenchymal disease from previous pneumonia. However, neoplasia/carcinoma is also possible. As warranted, consider further evaluation with a CT of the chest.
Cardiomegaly with no evidence for pulmonary edema pattern.
CT TAVR 03-14-2024:
Findings most consistent with bibasilar pneumonia, right greater than left. Possibly the basis of aspiration, with variable intraluminal fluid in the trachea and bronchi. Bronchial wall thickening. A neoplastic process is felt to be less likely,
though not entirely excluded, given the more rounded masslike opacity/consolidation in the right lower lobe. There is also mediastinal adenopathy. Short-term follow-up after conservative therapy would be advised to assess for resolution.
Renal cortical inhomogeneity and subtle irregularity of the peripheral cortical margin, left greater than right, as described. Possibly reflecting cortical scarring. Cannot exclude pyelonephritis in the proper clinical setting. More localized subtle
rounded diminished attenuation on the left. Cannot entirely exclude localized mass. Initial step for further evaluation recommended with ultrasound. In addition, correlate with urinalysis.
Right renal exophytic parapelvic cyst measuring 2.8 cm and posterior medial right exophytic cyst measuring 2.9 cm.
Diverticulosis without acute diverticulitis.
[2024-04-24 16:15] LABS: Urine Albumin Negative (Neg - Trace); Urine Bilirubin Negative (Negative); Urine Character Clear (Clear); Urine Color Yellow; Urine Glucose Negative (Negative); Urine Ketone Negative (Negative); Urine Leukocyte Negative (Negative); Urine Nitrite Negative (Negative); Urine Occult Blood Negative (Negative); Urine Urobilinogen Negative (Neg - 1+)
--- NOTE | 2024-04-24 16:44 | CM ---
Chart reviewed. Patient is independent of ADLS, lives with his brother and KELVIN in a [address], [address], 0 DME. Reviewed preoperative and postoperative instructions, along with showering instructions. Patient is agreeable to a visit by CT Transitional
RN. Plan is for the patient to go to his brothers house at [address] [place] [address]
[2024-04-24 17:07] VITALS: BP 108/84
[2024-04-24 17:15] VITALS: BP 148/65
--- NOTE | 2024-04-24 18:00 | PTCARENOTE ---
Pt received this am at 10am as a direct admit. Denies any pain or sob. OOB ad eleanor.
[2024-04-24] MEDS: LIPITOR 10 MG PO (18:44)
[2024-04-24 18:58] VITALS: BP 139/60
--- NOTE | 2024-04-24 20:42 | PTCARENOTE ---
received patient at the change of shift. AAOx3. resting in the chair comfortably. denies any SOB/CP. VPaced on tele. HR 60s-70s. bp stable. independent in the room. reviewed plan of care with patient and verbalized understanding. call brown within
reach. answered all questions.
[2024-04-24 21:11] VITALS: BP 114/77
[2024-04-24] MEDS: CORGARD 80 MG PO (21:11)
[2024-04-24 22:11] VITALS: BP 110/71
[2024-04-25] VITALS (18 sets, daily range): BP systolic 116–159; BP diastolic 49–89; BMI 22.7
[2024-04-25 05:01] LABS: INR 2.66; PT 28.3 Sec (11.4-14.6)
[2024-04-25 05:06] LABS: Blood Urea Nitrogen 45 mg/dl (9-20); Carbon Dioxide 29 mmol/L (22-30); Chloride 103 mmol/L (98-107); Estimated Creatinine Clearance 39 ml/min; Glucose 106 mg/dl (70-99); Potassium 4.9 mmol/L (3.5-5.1); Sodium 137 mmol/L (135-145); eGFR 58.17
--- NOTE | 2024-04-25 08:06 | W.PN.CD ---
Today's Communication / Plan
-
-CT findings - - The persistent confluent opacity within the right lower lobe could represent neoplasia/carcinoma, with differential consideration of residual organizing pneumonia ( see full report for details)
- resp status stable
- pulmonary consulted and will await their review of CT and recommendations
-continue to hold coumadina nd montior INR which is 2.6
- after pulmonologists assessment we can then reassess issues / timing of TAVR.
Impression / Plan
-
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
89M mechanical mitral valve replacement on warfarin and CABG (2008), PPM, coronary artery disease, mildly reduced left ventricular function (LVEF 40-45%), former smoker, permanent atrial fibrillation and severe aortic stenosis who presents prior to
TAVR for heparin bridge and cardiac optimization. iKrit had prior treatemntof PNA and was noted to have residual consolidation vs mass and is being evaluated by pulmonary this admit
Severe aortic stenosis
-TAVR scheduled 04/26/2024
-INR slow to come down evenothough he has been off since Tuesday. Monitor INR. will need bridge when subtherapeutic and safe post procedure.
RLL mass/comnsolidation
-CT findings - - The persistent confluent opacity within the right lower lobe could represent neoplasia/carcinoma, with differential consideration of residual organizing pneumonia ( full impression below)
- resp status stable
- pulmonary consulted and will await their review of CT and recommendations
HFrEF, NICM (LVEF 35-40%)
-CXR and proBNP pending
-GDMT as tolerated
-ACEI/ARB: Lisinopril 5 mg
-SGLT2: Jardiance is affordable, can consider
-Beta-aldo: Nadolol
-MRA: He had hyperkalemia when he presented to the ER 02/27/2024
-Trend daily weight, I/O, & BMP
Mitral valve replacement with mechanical valve (35-mm [place])
-Stable on most recent echocardiogram
-Start heparin drip if/when INR <2.5, await INR labs are pending
Permanent atrial fibrillation
-Continue rate control with nadolol and digoxin
-Oral Anticoagulation: He is on warfarin in the outpatient setting (mechanical mitral valve), bridging with heparin drip as above
-[id number]: score at least 4 (Heart failure, age 75 or more, Vascular disease)
Coronary artery disease
-CABG 2008 (SVG-OM)
-Stable without chest pain
-On aspirin and warfarin in the outpatient setting
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
Former smoker, continued cessation recommended
DATA:
chest CT 04/24/24
IMPRESSION:
There is a confluent mass-like opacity within the right lower lobe. There has been significant interval improvement in surrounding parenchymal airspace opacities in the right lower lobe since previous examination, suggesting interval improvement in
pneumonia.
The persistent confluent opacity within the right lower lobe could represent neoplasia/carcinoma, with differential consideration of residual organizing pneumonia. For further evaluation, consideration for biopsy. Alternatively, PET/CT scan could be
performed. Also, close CT follow-up could be considered.
1.4 cm precarinal lymph node, stable, with probable fatty central hilum, most likely a reactive inflammatory lymph node.
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
Cardiac catheterization, 03/02/2024:
1. Right dominant circulation with a 70+% stenosis of the lower branch of
OM1 status post single-vessel bypass with a patent SVG to OM1 with no evidence of degeneration.
2. Severely elevated filling pressures (PCWP = 30 mmHg at 65.3 kg).
3. Status post mechanical mitral valve replacement with normal leaflet excursion.
4. Severe aortic valve stenosis by echocardiography.
5. 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
6. 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
Echocardiogram, 02/27/2024:
Moderately reduced left ventricular systolic function.
Left ventricular ejection fraction is 35-40%.
Mechanical mitral valve with a mean gradient of 4 mmHg and no mitral
regurgitation
Severe aortic stenosis. Peak gradient 42 mmHg. Mean gradient 23 mmHg.
Dimensionless index 0.2
Severe pulmonary hypertension with estimated PA pressure 75 to 80 mmHg
When compared with the previous report 09/26/2023 estimated EF is reduced.
Previously 40 to 45%. Estimated PA pressure is increased. Previously 64 mmHg.
Physical Exam
Vital Signs/Labs
Vital Signs
Temp Pulse Resp BP Pulse Ox
98.4 F 60 20 129/89 96
04/25/24 07:30 04/25/24 05:30 04/25/24 07:30 04/25/24 04:23 04/25/24 07:30
04/24/24 04/25/24 04/26/24
06:59 06:59 06:59
Actual Weight 65.8 kg
04/24/24 10:30
04/25/24 04:22
PT 28.3 Sec (11.4-14.6) H 04/25/24 04:22
INR 2.66 04/25/24 04:22
APTT 46.9 Sec (23.4-35.0) H 04/24/24 10:28
04/24/24
10:30
[id number] Pept 3200
Physical Exam
Constitutional: No acute distress
EENT: Anicteric
Cardiovascular: Rhythm & rate is regular, Systolic murmur present and Other (prominent S1)
Respiratory: Respiratory effort normal
GI: Soft
Neuro/Psych: Alert
Data Reviewed
-
Date of Service: April 25, 2024
Medical Decision Making: Reviewed Test Results
Echo: Report Reviewed by me
X-Ray/CT/US/MRI/NUC/PET: Report Reviewed by me
Medical Tests (PFT, Pathology etc): Report Reviewed by me
Labs: Labs Reviewed by me
[2024-04-25] MEDS: LANOXIN 125 MCG PO (08:13)
[2024-04-25] MEDS: OCUVITE SOFTGEL 1 CAP PO (08:13)
[2024-04-25] MEDS: CORGARD 80 MG PO ×2 (08:13→20:09)
--- NOTE | 2024-04-25 10:21 | W.PN.PUL3 ---
Today's Communication / Plan
-
Preoperative management as per CT surgery
Patient is optimized from pulmonary standpoint for TAVR
Outpatient follow-up with us in the office to discuss robotic bronchoscopy to workup RLL spiculated mass
Maintain SpO2 >90-94%
Pulmonary service now sign off. Please reconsult if there are any additional questions or concerns.
Assessment
-
Assessment: 89-year-old former tobacco smoker with a past medical history of CAD s/p CABG, A-fib, + mechanical MVR on Coumadin presents with elective TAVR. Patient recently hospitalized from 02/26 - 03/02/2024 due to acute decompensated heart
failure due to underlying severe aortic stenosis. Patient had echo on 02/27/2024 showing reduced LV systolic function with EF 35-40%, severe aortic stenosis with a mean gradient of 23 mmHg. At that time there was severe pulmonary hypertension with
PASP of 75-80 mmHg. Patient recently had left heart catheterization on 03/02/2024 showing severely elevated filling pressures with PCWP of 30 mmHg, with low CI at 1.2, normal PVR at 1.19 Ware units, and mild pulmonary hypertension with mPAP of
34mmHg with RVSP of 63mmHg. Patient was diuresed and discharged on 03/02/2024. While awaiting TAVR, he obtained a CT TAVR on 03/14/2024 showing a masslike opacity/consolidation in the RLL measuring up to 6 cm, as well as bronchial wall thickening
with patchy infiltrate seen in the LLL, concerning for bilateral lower lobe pneumonia. There is also mediastinal + hilar lymphadenopathy. Repeat CXR today also shows persistent focal parenchymal opacity in the RLL. Pulmonary service now consulted
for additional management/recommendations.
Chronic conditions CARDIO CLINICIAN: Permanent A-fib, CAD s/p CABG (2008), severe aortic stenosis, mechanical mitral valve replacement (35mm [place] � 2008) on Coumadin, former tobacco use disorder
Impression:
#Abnormal CT TAVR with RLL masslike opacity with LLL bronchial wall thickening/infiltrate, concerning for multifocal pneumonia however unable to rule out underlying neoplasm in the RLL
#Recent sputum culture growing MSSA on 03/16/2024 Tx with Augmentin x 7 days
#Severe aortic stenosis awaiting TAVR
#Chronic systolic heart failure/chronic HFrEF
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
#CAD s/p CABG
#Acute kidney injury (Baseline Cr: 1.1) - LIZZ now resolved
#Former tobacco use disorder
#Permanent A-fib
Plan:
- Patient is not on supplemental oxygen and saturating 96-97% on room air. No leukocytosis and afebrile; doubtful patient any has a persistent pneumonia however RLL persistent opacification is concerning for neoplasm
- Repeat CT chest done yesterday shows persistent RLL spiculated mass measuring 4.7 x 2.8 x 7cm - this is concerning for primary bronchogenic carcinoma. I do not believe this poses a threat to him obtaining a TAVR
- The patient is agreeable to robotic bronchoscopy, which I will arrange as an outpatient
- In the interim, maintain SpO2 >90-94% with supplemental O2 as needed
- Incentive spirometer
- Replete electrolytes with K>4, Mg>2
- Maintain euglycemia with goal BG >100 and <180
- prn nebulized bronchodilators
- DVT ppx
No additional recommendations at this time. I will arrange for follow up with our office for further discussion of robotic bronchoscopy, which hopefully we will be able to do within the next 1-2 weeks. He will also need whole body PET/CT.
Pulmonary service now signing off. Please call back with any questions, and thank you for allowing us to be involved in the care of this patient.
Patient was seen and evaluated on 04/25/2024
Total time spent today was 35 minutes for this encounter. Time includes reviewing laboratory test/imaging results, reviewing pertinent medical records, obtaining and reviewing medical history, performing an appropriate exam, ordering medications,
tests and procedures. Time also includes documentation of this encounter, coordinating patient care and communicating with other healthcare professionals. Total time does not include separately billed tests performed on this date of service.
Data:
CXR 04-24-2024:
Focal parenchymal opacity within the right lower lobe. This could represent residual parenchymal disease from previous pneumonia. However, neoplasia/carcinoma is also possible. As warranted, consider further evaluation with a CT of the chest.
Cardiomegaly with no evidence for pulmonary edema pattern.
CT Chest w/o Contrast 04-24-2024:
There is a confluent mass-like opacity within the right lower lobe. There has been significant interval improvement in surrounding parenchymal airspace opacities in the right lower lobe since previous examination, suggesting interval improvement in
pneumonia.
The persistent confluent opacity within the right lower lobe could represent neoplasia/carcinoma, with differential consideration of residual organizing pneumonia. For further evaluation, consideration for biopsy. Alternatively, PET/CT scan could be
performed. Also, close CT follow-up could be considered.
1.4 cm precarinal lymph node, stable, with probable fatty central hilum, most likely a reactive inflammatory lymph node.
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
CT TAVR 03-14-2024:
Findings most consistent with bibasilar pneumonia, right greater than left. Possibly the basis of aspiration, with variable intraluminal fluid in the trachea and bronchi. Bronchial wall thickening. A neoplastic process is felt to be less likely,
though not entirely excluded, given the more rounded masslike opacity/consolidation in the right lower lobe. There is also mediastinal adenopathy. Short-term follow-up after conservative therapy would be advised to assess for resolution.
Renal cortical inhomogeneity and subtle irregularity of the peripheral cortical margin, left greater than right, as described. Possibly reflecting cortical scarring. Cannot exclude pyelonephritis in the proper clinical setting. More localized subtle
rounded diminished attenuation on the left. Cannot entirely exclude localized mass. Initial step for further evaluation recommended with ultrasound. In addition, correlate with urinalysis.
Right renal exophytic parapelvic cyst measuring 2.8 cm and posterior medial right exophytic cyst measuring 2.9 cm.
Diverticulosis without acute diverticulitis.
Subjective Data
-
Date of Service:
Date of Service: April 25, 2024
Chief Complaint: Pulmonary Follow Up
Subjective:
Pt seen at bedside this afternoon with brother at bedside. I reviewed his CT chest findings. Pt is feeling well, breathing comfortably on room air. He denies cough, CP, SOB, abd pain, N/V/f/c.
Review of Systems
General: Other (negative unless mentioned above)
Objective Data
Data Reviewed
Vital Signs / I&O / Oxygen:
Vital Signs
Temp Pulse Resp BP Pulse Ox
98.4 F 73 20 135/57 98
04/25/24 07:30 04/25/24 07:45 04/25/24 07:30 04/25/24 07:32 04/25/24 08:00
Intake and Output
04/24/24 04/25/24 04/26/24
06:59 06:59 06:59
Intake Total 250 / 250
Balance 250 / 250
SaO2 98
Physical Exam
General: Respiratory Distress (negative) and Comfortable
HEENT: Normocephalic and Anicteric
Cardiovascular: Murmur (KAREY, grade IV/ heard best at RUSB) and Peripheral Edema (negative)
Respiratory: Wheeze (negative), Rhonchi (negative), Non-Labored Respirations, Other (Reduced breath sounds b/l) and Other (Coarse BS b/l)
GI: Soft, Non Distended, Non Tender and Normal Bowel Sounds
Neurology: Awake, Alert and Tremors (negative)
Skin: Warm, Dry and Jaundice (negative)
Labs/Micro/Reports
Lab Data
04/24/24 10:30
04/25/24 04:22
Laboratory Results
04/24/24 04/25/24
10:28 04:22
PT 29.5 H 28.3 H
INR 2.80 2.66
APTT 46.9 H
--- NOTE | 2024-04-25 10:30 | CM ---
Chart reviewed. Patient is independent of ADLS, lives with his brother and KELVIN in a [address], 1 [address]YS[place], 0 DME. Patient scheduled for TAVR 04/26, waiting on Pulmonary recommendations. Plan is for the patient to return home with CT Transitional RN if
the patient continues with TAVR. CM to follow
[2024-04-25 11:04] LABS: Glycohemoglobin (HgbA1c) 5.7 % (4.0-5.6)
[2024-04-25] MEDS: LIPITOR 10 MG PO (17:09)
--- NOTE | 2024-04-25 18:38 | PTCARENOTE ---
Pt denies any chest pain or sob. OOB ad eleanor in the room, gait steady. 2 units of FFP infused as ordered. No c/o offered.
[2024-04-25 20:31] LABS: INR 1.68
[2024-04-25] MEDS: HEPARIN 25000 UNITS/250 ML IV (21:47)
[2024-04-26] VITALS (25 sets, daily range): BP systolic 101–160; BP diastolic 50–103; PULSE 60; BMI 22.9
--- NOTE | 2024-04-26 01:09 | PTCARENOTE ---
Pt rec'd at change of shift awake,alert no complaints. Pt clipped for tavr in am. Showered with 4% chlorhexidine soap. prep checked by PA. Heparin drip started at 2145 after INR resulted at 1.68. Pt aware of npo status after mn.
[2024-04-26 05:25] LABS: INR 1.79; PT 20.9 Sec (11.4-14.6)
[2024-04-26 05:45] LABS: APTT 154.9 Sec (23.4-35.0)
[2024-04-26 06:09] LABS: Blood Urea Nitrogen 39 mg/dl (9-20); Calcium 9.3 mg/dl (8.4-10.2); Carbon Dioxide 27 mmol/L (22-30); Chloride 105 mmol/L (98-107); Estimated Creatinine Clearance 48 ml/min; Glucose 96 mg/dl (70-99); Potassium 4.7 mmol/L (3.5-5.1); Sodium 136 mmol/L (135-145); eGFR > 60.00
--- NOTE | 2024-04-26 06:09 | W.PN.UPDATE ---
Update Note
Progress Note Update
-INR 1.[address] Scott, gave 2.5 mg vitamin K po around 6 am. Will check INR at 9am
-PTT 154.9 this am - per protocol, Heparin will be held for 1 hr, then decreased to 800 units/hr
[2024-04-26] MEDS: MEPHYTON 2.5 MG PO (06:26)
--- NOTE | 2024-04-26 06:29 | W.CVOR.SURPR ---
CVOR Surgeon Immed Pre Op
-
I have examined this patient prior to performance of the scheduled procedure.
The patient's condition is unchanged from the time of the dictated/written History and
Physical and the patient is able to undergo the scheduled procedure.
TF TAVR
Ok for CPR/Shocks/Meds
No sternotomy
No CPB
[2024-04-26] MEDS: ANCEF 10 IV ×2 (08:00→10:00)
[2024-04-26] MEDS: BACTROBAN 2% OINTMENT 1 APPLIC NASAL (08:29)
--- NOTE | 2024-04-26 08:46 | PTCARENOTE ---
received call from senior label specialist, Dr. Peralta ordered to D/C IV heparin gtt. now and cancel INR at 0900.
--- NOTE | 2024-04-26 09:22 | PTCARENOTE ---
Rec'd pt this am, remained NPO after midnight. Morning PO meds held per CV PA. Pt v-paced on monitor. Patient sent for TVAR vital signs stable (see flow sheet).
[2024-04-26 10:40] LABS: ACT-LR - POC 366 Seconds (116-155)
[2024-04-26] MEDS: LEVOPHED 250 IV (11:00)
--- NOTE | 2024-04-26 11:01 | W.PN.UPDATE ---
Update Note
Progress Note Update
Reviewed Mr. Buckley with the heart team and confirmed a 29 mm S3 via left transfemoral access. Patient will resume warfarin post TAVR. LVEDP 20 mmHg. # 29mm S3 (serial# [id number]) successfully deployed via left transfemoral access. Post implant MG 2mmHg.
--- NOTE | 2024-04-26 11:01 | W.PN.CT.SURG ---
Addendum entered and electronically signed by Bartolo Scott MD 04/26/24 13:27:
Correction: We used Nominal -1cc for the 29mm Valve.
Original Note:
CT Surgery Operative Note
-
OPERATIVE REPORT
Preoperative Diagnosis: Severe aortic valve stenosis, symptomatic
Postoperative Diagnosis: Same
Procedure(s) Performed: Left trans femoral TAVR with a 29 mm Conley TAVR valve
Date of Procedure: 04/26/2024
Comorbidities:
1. Severe aortic stenosis, symptomatic [low-flow low gradient]
2. Hypertension
3. Chronic systolic and diastolic heart failure, LVEF of 30 to 35%
4. History of open heart surgery with mitral valve replacement, mechanical valve
5. Permanent atrial fibrillation with permanent pacemaker implanted
6. Coronary artery disease status post CABG
7. Severe pulmonary hypertension
8. Recent episode of pneumonia
9. Right lower lobe mass concerning for malignancy
Cardiac Surgeon: Bartolo Scott MD, MS
Microbiology Technologist: Yury Peralta MD
Anesthesia: Conscious Sedation and Local Analgesia
EBL: 100cc
Products: none
Implant: 29mm Conley Bear Ultra TAVR Valve, SN: [id number]
Indication(s) for Procedures: 89-year-old male with symptomatic severe aortic stenosis. He has a history of a mechanical mitral valve with CABG. He has baseline low EF, chronic congestive heart failure. CT-TAVR protocol revealed acceptable anatomy
for TAVR access and implantation. MDT discussion with his manufacturers representative, ondina probate clerk,
Start time: 1012hrs
Deployment time: 1040hrs
End time: 1050hrs
Radiation Dose (mGy): 302.48
DAP (cm2.Gy): 43.1024
Fluoroscopy time (minutes): 6.8
Contrast volume (ml): 74
TAVR gradient (mmHg): 2mmHg
Heparin Dose: 5500 units
Protamine Dose: None
Final Valve Positionin/30
Findings: Preoperative LVEF was 35% and was 40% following TAVR without inotropic support. Function was overall normal without regional wall motion abnormalities or dyskinesia. The aortic valve was well seated without detectable PVL and mean gradient
across the new valve was 2mmHg. Following deployment, he returned to his sioux pacing rhythm, as he already had a PPM. LVEDP pre TAVR was 20mmHg, however, he has known low EF. There was successful placement of 29mm TAVR valve without acute
complications.
Access:
1. Device -left common femoral artery, perclose x 2
2. Pigtail -right common femoral artery + 6Fr angioseal
3. Transvenous Pacer - right common femoral vein
Description of Procedure: The patient was taken to the manager cath lab. Their identity and procedure to be performed were verified and they were positioned supine on the manager cath lab table. Induction via conscious sedation. The patient was then prepped and
draped from chin to thigh in a sterile fashion. A preoperative time-out was performed with all members of the team present. Arterial and venous access was performed using fluoroscopy and ultrasound guidance with micropuncture and Seldinger
technique. Two perclose devices were used on the device side followed by access to the aorta with a stiff wire to facilitate E-sheath placement. Heparin was given. A stiff straight wire and AL-1 catheter was used to cross the aortic valve. LVEDP
was measured here. The stiff wire was exchanged for an extra stiff coiled tip wire. The valve was prepped and mounted on to the device carrier. An ACT of >250 was achieved. We verified x 3 that the valve was mounted in the correct orientation with
the skirt of the valve directed toward the tip of the device carrier. We advanced the device into the descending thoracic aorta where the valve was them mounted onto the balloon under fluoroscopy. The device was flexed and advanced over the arch
into the root and positioned across the aortic valve. Contrast fluoroscopy was used to visualize the prosthesis across the valve and to guide positioning. A pigtail catheter in the RCC as used as a guide. We aimed to have the bottom of the device
marker at the annular hinge point. The device sheath was pulled back. We performed a quick pre-deployment time out. The pacer was turned on and had capture. Blood pressure fell accordingly, angiography was done to verify the intended final placement
and the valve was deployed with 5 seconds of rapid pacing to nominal volume. The balloon was deflated and the pacer was turned off. We had recovery of vitals with his sioux PPM taking over. The device carrier was unflexed and positioned back in the
descending thoracic aorta. A transthoracic echocardiogram was performed. The device was removed from the E-Sheath maintaining wire access followed by removal of the E-sheath as we cinched down the perclose devices. There was acceptable hemostasis.
The pigtail was withdrawn into the descending/abdominal and completion aortogram with runoff run-off angiography was performed. There was mild-mod stenosis of the LCFA but not flow limiting. There was no dissection of bilateral iliofemoral systems.
There was acceptable hemostasis of bilateral groins and manual pressure was held following wire removal. Low dose protamine was administered after checking another ACT.
All instrument, sponge, and needle counts were confirmed to be correct x 2 at the end of the operation. The patient was transferred to the cardiac intensive care unit in stable condition.
I, Dr. Bartolo Scott, was present, scrubbed for, and performed all critical elements of this procedure.
Bartolo Scott MD
Cardiothoracic Surgeon
[facility]
This operative dictation was created using the [employer] dictation system. Please excuse any grammatical, typographical, or 'sound alike' errors
--- NOTE | 2024-04-26 13:23 | PTCARENOTE ---
Rec'd pt from systems testing laboratory technician post TVAR. Pt vital signs stable. monitor shows V paced with hr in the 60's. Bilateral groins with dressing intact, no bleeding or hematoma present. Distal pulses only by dopler.
--- NOTE | 2024-04-26 13:35 | CM ---
Chart reviewed. Patient is in the OR today. Patient is independent of ADLS, lives with his brother and KELVIN in [address], [address] [place], 0 DME. Plan is for the patient to return to their home with CT Transitional RN [id number] [facility] [id number]
--- NOTE | 2024-04-26 13:39 | ITS.CL.TAVR ---
White Mixing Operator - TAVR Report
TAVR PRocedure
Procedure Report:
TRANSCATHETER AORTIC VALVE REPLACEMENT REPORT
Date: 04/26/2024
Referring physician: William Morrissey M.D.
Preop diagnosis: Severe aortic valve stenosis, mechanical mitral valve replacement.
Postop diagnosis: Severe aortic valve stenosis, mechanical mitral valve replacement.
Procedure: Transcatheter aortic valve replacement (TAVR) using a #29 Conley BEAR S3 Ultra.
Operators: Yury Peralta DO, Anthony Tran, M.D.
Findings: Severely calcified and stenotic aortic valve.
Anesthesia: Concious sedation was provided by the anesthesia staff.
Estimated blood loss: Negligable.
Complications: None.
Condition: Stable
Procedure:
The patient was brought to the cardiac farm labor contractor after consent and was prepped and draped in standard sterile fashion. Conscious sedation was provided by the anesthesia staff. After a 'Time Out,' bilateral common femoral arteries and the right
femoral common vein were access using a modified Seldinger technique with a micropuncture kit under ultrasound guidance. A 6 Italian sheath was placed in the right femoral vein. Angiography performed through the micropuncture sheath confirmed
satisfactory arterial placement in the right common femoral artery. The micropuncture sheath was replaced with a 6Fr sheath in the right CLIENT SERVICE EXECUTIVE. Angiography through the micropuncture kit confirmed satisfactory arterial placement in the left common
femoral artery. The left CLIENT SERVICE EXECUTIVE was dilated with an 8FR dilator and preclosed with two Perc-Close devices. An 8Fr sheath was placed in the LCFA. A temporary pacing wire was advanced through the right femoral vein and into the right ventricle. The
pacemaker demonstrated good capture and was set to back up. A 5Fr pigtail catheter was advanced through the right femoral sheath and seated in the right coronary cusp. Angiography confirmed co-planar angles.
An AL-1 catheter was advanced through the 8Fr sheath, the J wire was exchanged for an Amplatz Superstiff wire and the catheter and the 8 Fr sheath was removed. A 18 Fr dilator was advanced over the Superstiff wire to the descending aorta. The
dilator was removed and the 16 Fr Conley E-sheath was inserted over the wire and into the descending aorta. Heparin 5500 units was given. The BEAR S3 was prepared on the back table. Orientation was confirmed by both physicians. The AL-1
catheter was re-advanced through the E-sheath to the level of the ascending aorta. The Superstiff wire was removed and a soft tip straight wire was advaned through the AL-1. The straight tip wire was used to cross the aortic valve and the catheter
was advanced into the left ventricle. The straight wire was removed and an Amplatz Extrastiff wire with curved proximal end was advanced through the catheter and into the left ventricle. The wire was seated in the apex and the catheter was
removed. ACT was checked and confirmed to be > 250 seconds.
The valve was advanced over the Extrastiff wire and into the descending aorta. The balloon was withdrawn and the valve was mounted on the balloon. The valve was advanced over the aortic arch and into the aortic valve annulus. The pusher device
was withdrawn to allow for balloon expansion. Low volume aortography confirmed good position of the valve. The valve was deployed during rapid ventricular pacing. Echocardiography and aortography confirmed a good result with no aortic valve
insufficiency and a 2 mmHg mean gradient. The valve deployment system was removed. The Conley E sheath was then removed and hemostasis obtained with the two perclose sutures. Final angiography demonstrated no evidence of ileofemoral
dissection/perforation and good runoff below the common femoral artery. The pacemaker and the pigtail catheter were removed. The right femoral artery sheath was removed using a 6Fr angioseal. The right femoral venous sheath was removed and manual
pressure was applied. with excellent hemostasis.
Radiation
Dose (mGy): 302.48
DAP (cm2.Gy): 43.1024
Fluoroscopy time (minutes): 6.8
TAVR Echo Gradient (mmHg): 2
LV (s/x, mmHg): 166/20
TAVR Cath Gradient (mmHg): Not obtained.
Conclusions:
1. Successful placement of #29 Bear S3 Ultra aortic valve via right transfemoral approach with no acute complications.
Yury Peralta DO, FACC, FACP
Copy to: William Morrissey M.D., Yinka Lemon M.D.
[2024-04-26] MEDS: LANOXIN PO (15:44)
[2024-04-26] MEDS: CORGARD PO (15:44)
[2024-04-26] MEDS: OCUVITE SOFTGEL PO (15:45)
[2024-04-26] MEDS: TYLENOL 650 MG PO (16:31)
--- NOTE | 2024-04-26 17:25 | PTCARENOTE ---
Pt complained of lower back pain. Pt rated pain on 3/10 scale. Tylenol given at 4:30.
[2024-04-26] MEDS: HEPARIN 25000 UNITS/250 ML IV (17:53)
[2024-04-26] MEDS: LIPITOR 10 MG PO (17:56)
[2024-04-26] MEDS: ANCEF 5 IV (17:56)
[2024-04-26] MEDS: FLUSH (NSS) 1 FLUSH IV (17:57)
[2024-04-26 20:25] LABS: APTT 54.2 Sec (23.4-35.0)
[2024-04-26] MEDS: CORGARD 80 MG PO (21:17)
[2024-04-26 22:31] LABS: APTT 65.3 Sec (23.4-35.0)
--- NOTE | 2024-04-26 23:04 | PTCARENOTE ---
received patient at the change. AAOx3. neuro intact. assisted patient to the chair, steady on his feet. denies any lightheadedness/dizziness. Vpaced on tele. bp stable. b/l groin sites intact. + doppler pulses. reviewed plan of care with patient and
verbalized understanding. call brown within reach.
heparin gtt infusing per order. PTT at 2000-54.2. per Maki Fagan CV PA- increase heparin gtt by 2ml/hr. increased heparin gtt to 7ml/hr. redraw at 2200- PTT 65.3. will recheck PTT at 0001.
[2024-04-27] VITALS (10 sets, daily range): BP systolic 66–119; BP diastolic 41–84; BMI 23.1
[2024-04-27 00:27] LABS: APTT 72.6 Sec (23.4-35.0)
[2024-04-27 02:22] LABS: APTT 82.2 Sec (23.4-35.0)
--- NOTE | 2024-04-27 04:17 | PTCARENOTE ---
new wound noted on patient's upper left flank area. old pacer pad/tegaderm site had been removed at beginning of shift. blistering and a small skin tear noted at this time. patient denies any pain at the site. wound left open to air.
[2024-04-27 04:27] LABS: Hematocrit 28.4 % (39.0-52.0); Hemoglobin 9.4 g/dL (13.0-18.0); Mean Corp Hgb Conc. 33.1 g/dL (33.0-37.0); Mean Corpuscular Hgb 29.8 pg (27.0-31.0); Mean Corpuscular Volume 90.2 fL (80.0-94.0); Mean Platelet Volume 10.9 fL (7.4-10.4); Platelet Count 114 10^3/uL (130-400); Red Blood Cell Count 3.15 10^6/uL (4.70-6.10); White Blood Cell Count 6.5 10^3/uL (4.8-10.8)
[2024-04-27 04:44] LABS: PT 18.2 Sec (11.4-14.6)
[2024-04-27 04:46] LABS: APTT 89.9 Sec (23.4-35.0)
[2024-04-27 04:50] LABS: Blood Urea Nitrogen 35 mg/dl (9-20); Carbon Dioxide 27 mmol/L (22-30); Chloride 106 mmol/L (98-107); Estimated Creatinine Clearance 43 ml/min; Glucose 101 mg/dl (70-99); Potassium 4.7 mmol/L (3.5-5.1); Sodium 137 mmol/L (135-145); eGFR > 60.00
--- NOTE | 2024-04-27 05:47 | W.PN.CT ---
Today's Communication / Plan
-
-pod#1
-no issues overnight
-in a-fib with v-pacing and some intrinsic conduction
-on IV Heparin @ 700 units/hr for a-fib and mechanical MVR (ptt goal 73-111). PTT 89.9; INR 1.5
-Echo today
-current meds (Nadolol, Digoxin, Lipitor). On Coumadin preop
-plans for possible robotic bronchoscopy of RLL mass in near future
-encourage IS, OOB
Assessment / Plan
-
- Severe symptomatic - s/p Left trans femoral TAVR with a 29 mm Conley TAVR valve on 04/26/24, pod #1
- Intraop TTE: Preop LVEF was 35% and was 40% following TAVR without inotropic support, no regional wma or dyskinesia. The aortic valve was well seated without detectable PVL and mean gradient of 2mmHg
- LVEDP pre TAVR was 20mmHg
- Hypertension
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
- History of open heart surgery with mitral valve replacement, mechanical valve
- Permanent atrial fibrillation with permanent pacemaker implanted
- Coronary artery disease -status post CABG
- Severe pulmonary hypertension
- Recent episode of pneumonia
- RLL spiculated mass concerning for malignancy- plans for possible robotic bronchoscopy on 04/30
Discussed patient care with: Nursing and Care Team
Subjective
Procedure
- s/p Left trans femoral TAVR with a 29 mm Conley TAVR valve on 04/26/24
-
Date of Service: April 27, 2024
Objective Data
-
PT Cancelled 04/26/24 09:00
INR Cancelled 04/26/24 09:00
APTT 72.6 Sec (23.4-35.0) H 04/27/24 00:06
Vital Signs
Vital Signs
Temp Pulse Resp BP Pulse Ox
97.9 F 67 20 148/64 92
04/26/24 20:26 04/26/24 23:15 04/26/24 20:26 04/26/24 21:17 04/26/24 20:26
CT Intake/Output/Weight
04/26/24 04/26/24 04/27/24
06:59 18:59 06:59
Intake Total 150 / 400 250 / 400
Output Total 700 / 900 200 / 900
Balance -550 / -500 50 / -500
SaO2: 92
Physical Exam
-
General: Awake and AOx3
Cardiovascular: Irregular rate & rhythm, No Murmurs and No Rub
Respiratory: Decreased Breath Sounds
Incision: Other (groins are cdi, soft, nontender, no hematoma b/l)
Extremities: No Edema
Data Reviewed
-
Lab Results: Results Reviewed
Medications: Active Meds Reviewed
Chest X-Ray: Report Reviewed and Image Reviewed
ECG: Report Reviewed and Image Reviewed
--- NOTE | 2024-04-27 07:41 | W.PN.ANS.POP ---
Anesthesia Post Operative
- Anesthesia Post Op Note
Vital Signs Stable-See Nursing Note: Yes
Airway Patent: Yes
Adequate Pain Control: Yes
Change in Mental Status: No
Current Postoperative Nausea & Vomiting: No
Anesthesia Complications: No
General Anesthetic Recall: No
Unplanned Admission: No
Post Op Hydration Adequate: Yes
[2024-04-27] MEDS: CORGARD 80 MG PO ×2 (08:32→19:44)
[2024-04-27] MEDS: LANOXIN 125 MCG PO (08:33)
[2024-04-27] MEDS: ZESTRIL 5 MG PO (08:34)
[2024-04-27] MEDS: OCUVITE SOFTGEL 1 CAP PO (08:34)
[2024-04-27] MEDS: LASIX 40 MG PO (08:34)
[2024-04-27] MEDS: LOW STRENGTH ASPIRIN 81 MG PO (09:33)
[2024-04-27 11:16] LABS: APTT 88.1 Sec (23.4-35.0)
--- NOTE | 2024-04-27 12:59 | W.PN.PUL3 ---
Today's Communication / Plan
-
Pending for robotic bronchoscopy on this upcoming Tuesday (04/30/2024) to workup RLL spiculated mass
Continue heparin gtt, stop 4-6 hours prior to procedure on 04/30/2024
Post�operative TAVR management as per CT surgery
Maintain SpO2 >90-94%
Assessment
-
Assessment: 89-year-old former tobacco smoker with a past medical history of CAD s/p CABG, A-fib, + mechanical MVR on Coumadin presents with elective TAVR. Patient recently hospitalized from 02/26 - 03/02/2024 due to acute decompensated heart
failure due to underlying severe aortic stenosis. Patient had echo on 02/27/2024 showing reduced LV systolic function with EF 35-40%, severe aortic stenosis with a mean gradient of 23 mmHg. At that time there was severe pulmonary hypertension with
PASP of 75-80 mmHg. Patient recently had left heart catheterization on 03/02/2024 showing severely elevated filling pressures with PCWP of 30 mmHg, with low CI at 1.2, normal PVR at 1.19 Ware units, and mild pulmonary hypertension with mPAP of
34mmHg with RVSP of 63mmHg. Patient was diuresed and discharged on 03/02/2024. While awaiting TAVR, he obtained a CT TAVR on 03/14/2024 showing a masslike opacity/consolidation in the RLL measuring up to 6 cm, as well as bronchial wall thickening
with patchy infiltrate seen in the LLL, concerning for bilateral lower lobe pneumonia. There is also mediastinal + hilar lymphadenopathy. Repeat CXR today also shows persistent focal parenchymal opacity in the RLL. Pulmonary service now consulted
for additional management/recommendations.
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
Impression:
#Abnormal CT TAVR with RLL masslike opacity with LLL bronchial wall thickening/infiltrate, concerning for primary bronchogenic lung cancer; unlikely multifocal pneumonia given he lacks clinical symptoms for infection
#Recent sputum culture growing MSSA on 03/16/2024 Tx with Augmentin x 7 days
#Severe aortic stenosis s/p TAVR on 04/26/2024
#Chronic systolic heart failure/chronic HFrEF
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
#CAD s/p CABG
#Acute kidney injury (Baseline Cr: 1.1) - LIZZ now resolved
#Former tobacco use disorder
#Permanent A-fib
Plan:
- Patient is not on supplemental oxygen and saturating 96-97% on room air. No leukocytosis and afebrile; doubtful patient any has a persistent pneumonia however RLL persistent opacification is concerning for neoplasm
- Repeat CT chest done on 04/24/2024 shows persistent RLL spiculated mass measuring 4.7 x 2.8 x 7cm - this is concerning for primary bronchogenic carcinoma.
- The patient is agreeable to robotic bronchoscopy, which will be done this upcoming 04/30/2024
- Continue with heparin drip and stop it Tuesday morning about 4-6 hours prior to procedure
- NPO p MN tuesday/Tuesday night
- Maintain SpO2 >90-94% with supplemental O2 as needed
- Incentive spirometer
- Replete electrolytes with K>4, Mg>2
- Maintain euglycemia with goal BG >100 and <180
- prn nebulized bronchodilators
- DVT ppx
Pulmonary service will continue to follow along. After procedure on Tuesday, he will need to follow-up with us in the office. He will also need whole body PET/CT.
Total time spent today was 35 minutes for this encounter. Time includes reviewing laboratory test/imaging results, reviewing pertinent medical records, obtaining and reviewing medical history, performing an appropriate exam, ordering medications,
tests and procedures. Time also includes documentation of this encounter, coordinating patient care and communicating with other healthcare professionals. Total time does not include separately billed tests performed on this date of service.
Data:
CXR 04-24-2024:
Focal parenchymal opacity within the right lower lobe. This could represent residual parenchymal disease from previous pneumonia. However, neoplasia/carcinoma is also possible. As warranted, consider further evaluation with a CT of the chest.
Cardiomegaly with no evidence for pulmonary edema pattern.
CT Chest w/o Contrast 04-24-2024:
There is a confluent mass-like opacity within the right lower lobe. There has been significant interval improvement in surrounding parenchymal airspace opacities in the right lower lobe since previous examination, suggesting interval improvement in
pneumonia.
The persistent confluent opacity within the right lower lobe could represent neoplasia/carcinoma, with differential consideration of residual organizing pneumonia. For further evaluation, consideration for biopsy. Alternatively, PET/CT scan could be
performed. Also, close CT follow-up could be considered.
1.4 cm precarinal lymph node, stable, with probable fatty central hilum, most likely a reactive inflammatory lymph node.
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
CT TAVR 03-14-2024:
Findings most consistent with bibasilar pneumonia, right greater than left. Possibly the basis of aspiration, with variable intraluminal fluid in the trachea and bronchi. Bronchial wall thickening. A neoplastic process is felt to be less likely,
though not entirely excluded, given the more rounded masslike opacity/consolidation in the right lower lobe. There is also mediastinal adenopathy. Short-term follow-up after conservative therapy would be advised to assess for resolution.
Renal cortical inhomogeneity and subtle irregularity of the peripheral cortical margin, left greater than right, as described. Possibly reflecting cortical scarring. Cannot exclude pyelonephritis in the proper clinical setting. More localized subtle
rounded diminished attenuation on the left. Cannot entirely exclude localized mass. Initial step for further evaluation recommended with ultrasound. In addition, correlate with urinalysis.
Right renal exophytic parapelvic cyst measuring 2.8 cm and posterior medial right exophytic cyst measuring 2.9 cm.
Diverticulosis without acute diverticulitis.
Subjective Data
-
Date of Service:
Date of Service: April 27, 2024
Chief Complaint: Pulmonary Follow Up
Subjective:
Patient seen and evaluated at bedside. Daughter and brother at bedside. I answered all the questions. He feels well ever since his TAVR yesterday. Heart rate 75 and he is on room air breathing comfortably. He denies headache, shortness breath
at rest, chest pain, abdominal pain, fevers or chills.
Review of Systems
General: Other (Negative unless mentioned above)
Objective Data
Data Reviewed
Vital Signs / I&O / Oxygen:
Vital Signs
Temp Pulse Resp BP Pulse Ox
97.9 F 62 18 119/84 95
04/27/24 11:45 04/27/24 09:30 04/27/24 11:45 04/27/24 08:34 04/27/24 11:45
Intake and Output
04/26/24 04/27/24 04/28/24
06:59 06:59 06:59
Intake Total 654 / 654 880 / 880 480 / 480
Output Total 900 / 900 1200 / 1200
Balance 654 / 654 -20 / -20 -720 / -720
SaO2 95
Physical Exam
General: Respiratory Distress (negative) and Comfortable
HEENT: Normocephalic and Anicteric
Cardiovascular: Peripheral Edema (negative)
Respiratory: Wheeze (negative), Rhonchi (negative), Non-Labored Respirations, Other (Reduced breath sounds b/l) and Other (Coarse BS b/l)
GI: Soft, Non Distended, Non Tender and Normal Bowel Sounds
Neurology: Awake, Alert and Tremors (negative)
Skin: Warm, Dry and Jaundice (negative)
Labs/Micro/Reports
Lab Data
04/27/24 04:01
04/27/24 04:01
Laboratory Results
04/26/24 04/26/24 04/26/24
06:00 09:00 17:20
PT Cancelled Cancelled
INR Cancelled Cancelled
APTT Cancelled
04/26/24 04/26/24 04/27/24
20:03 22:04 00:06
PT
INR
APTT 54.2 H 65.3 H 72.6 H
04/27/24 04/27/24 04/27/24
01:59 04:01 10:20
PT 18.2 H
INR 1.50
APTT 82.2 H 89.9 H Cancelled
04/27/24
10:56
PT
INR
APTT 88.1 H
Microbiology
04/24/24 10:30 Nose MRSA Screen - Final
No Methicillin Resistant Staphylococcus aureus isolated.
--- NOTE | 2024-04-27 14:19 | CM ---
Chart reviewed. Patient is waiting for bronch on 04/30. Patient is independent of ADLS, lives with his brother and KELVIN, in a [address], 1 [facility], 0 DME. Plan is for the patient to return home with CT Transitional RN. CM to follow
[2024-04-27] MEDS: LIPITOR 10 MG PO (17:15)
--- NOTE | 2024-04-27 17:28 | PTCARENOTE ---
Pt is Vpaced on the monitor, HR in the 60s, VSS. No complaints from pt at this time. Pt ambulated through halls, tolerated well. PTT within therapeutic range, heparin gtt running per protocol. Bilateral groin, CDI. Pt educated on plan of care, pt
verbalized understanding. Call stephanie w/in reach
--- NOTE | 2024-04-27 19:29 | PTCARENOTE ---
Pt. received from previous shift, AOx3, HR 60s, BP stable. Hep gtt running at correct rate, no complaints at this time. Continuing to monitor the pt.
[2024-04-28] MEDS: HEPARIN 25000 UNITS/250 ML IV (00:33)
[2024-04-28 04:04] VITALS: BP 94/48
[2024-04-28 04:25] LABS: Hematocrit 24.7 % (39.0-52.0); Hemoglobin 8.3 g/dL (13.0-18.0); Mean Corp Hgb Conc. 33.6 g/dL (33.0-37.0); Mean Corpuscular Hgb 29.3 pg (27.0-31.0); Mean Corpuscular Volume 87.3 fL (80.0-94.0); Mean Platelet Volume 10.7 fL (7.4-10.4); Platelet Count 97 10^3/uL (130-400); Red Blood Cell Count 2.83 10^6/uL (4.70-6.10); Red Cell Dist. Width 15.3 % (11.5-14.5); White Blood Cell Count 5.9 10^3/uL (4.8-10.8)
[2024-04-28 04:43] LABS: INR 1.48; PT 17.7 Sec (11.4-14.6)
--- NOTE | 2024-04-28 04:53 | W.PN.CT ---
Addendum entered and electronically signed by Dani Umaña MD 04/28/24 09:26:
I saw and examined the patient.
The PA's note was reviewed and I agree with the note.
Comment:
POD#2 s/p L TF TAVR (29 S3)
L groin w/ ecchymosis/TTP and small hematoma; Hgb 8.3 from 9.4
- Fem stop placed this AM
- Check U/S of L groin to R/O pseudoaneurysm
- Repeat Hgb at noon today - if down further will obtain CT-A of abdomen (creat 1.1 on 04/27) regardless of U/S results
- Continue heparin for now given mechanical MV - closely follow PTT to assure pt not supratherapeutic
- Plan pulmonary biopsy on Tuesday
Original Note:
Today's Communication / Plan
-
-pod#2
-no issues overnight
-in a-fib with v-pacing
-renewed IV Heparin @ 700 units/hr for a-fib and mechanical MVR (ptt goal 73-111). PTT 88.0 and INR 1.48.
-platelets trending down - 97K today (114K on 04/27)- follow
-hg 8.3 (9.4 on 04/27)-follow
-Echo 04/27 ok
-current meds (Nadolol, Digoxin, Lipitor). On Coumadin preop
-plans for robotic bronchoscopy of RLL mass on 04/30
-encourage IS, OOB
Assessment / Plan
-
- Severe symptomatic - s/p Left trans femoral TAVR with a 29 mm Conley TAVR valve on 04/26/24, pod #2
- Intraop TTE: Preop LVEF was 35% and was 40% following TAVR without inotropic support, no regional wma or dyskinesia. The aortic valve was well seated without detectable PVL and mean gradient of 2mmHg
- LVEDP pre TAVR was 20mmHg
- Hypertension
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
- History of open heart surgery with mitral valve replacement, mechanical valve
- Permanent atrial fibrillation with permanent pacemaker implanted
- Coronary artery disease -status post CABG
- Severe pulmonary hypertension
- Recent episode of pneumonia
- RLL spiculated mass concerning for malignancy- plans for possible robotic bronchoscopy on 04/30
Discussed patient care with: Nursing and Care Team
Subjective
Procedure
- s/p Left trans femoral TAVR with a 29 mm Conley TAVR valve on 04/26/24
-
Date of Service: April 28, 2024
Objective Data
-
Lab Results
04/28/24 04:01
04/28/24 06:00
PT 18.2 Sec (11.4-14.6) H 04/27/24 04:01
INR 1.50 04/27/24 04:01
APTT 88.1 Sec (23.4-35.0) H 04/27/24 10:56
Vital Signs
Vital Signs
Temp Pulse Resp BP Pulse Ox
98.6 F 80 18 113/52 95
04/27/24 22:49 04/27/24 22:23 04/27/24 22:49 04/27/24 22:23 04/27/24 22:[address]
CT Intake/Output/Weight
04/27/24 04/27/24 04/28/24
06:59 18:59 06:59
Intake Total 730 / 880 480 / 580 100 / 580
Output Total 200 / 900 1200 / 1200
Balance 530 / -20 -720 / -620 100 / -620
SaO2: 95
Physical Exam
-
General: Awake and AOx3
Cardiovascular: Regular rate & rhythm (a-fib with v-pacing) and No Murmurs
Respiratory: Clear
Incision: Other (groins are soft, very mildly tender to touch, cdi, very small hematomas b/l)
Extremities: No Edema
Data Reviewed
-
Lab Results: Results Reviewed
Medications: Active Meds Reviewed
Chest X-Ray: Report Reviewed and Image Reviewed
ECG: Report Reviewed and Image Reviewed
[2024-04-28 05:57] VITALS: BMI 23.0
[2024-04-28 08:42] VITALS: BP 116/58
[2024-04-28] MEDS: LASIX 40 MG PO (08:45)
[2024-04-28] MEDS: ZESTRIL 5 MG PO (08:46)
[2024-04-28] MEDS: CORGARD 80 MG PO ×2 (08:46→20:02)
[2024-04-28] MEDS: OCUVITE SOFTGEL 1 CAP PO (08:47)
[2024-04-28] MEDS: LANOXIN 125 MCG PO (08:47)
--- NOTE | 2024-04-28 09:05 | W.PN.PUL3 ---
Today's Communication / Plan
-
Awaiting procedure on Tuesday, otherwise stable
Orders in place for NPO and heparin hold
We will resume FU on tuesday
Assessment
-
89-year-old former tobacco smoker with a past medical history of CAD s/p CABG, A-fib, + mechanical MVR on Coumadin presents with elective TAVR. Patient recently hospitalized from 02/26 - 03/02/2024 due to acute decompensated heart failure due to
underlying severe aortic stenosis. Patient had echo on 02/27/2024 showing reduced LV systolic function with EF 35-40%, severe aortic stenosis with a mean gradient of 23 mmHg. At that time there was severe pulmonary hypertension with PASP of 75-80
mmHg. Patient recently had left heart catheterization on 03/02/2024 showing severely elevated filling pressures with PCWP of 30 mmHg, with low CI at 1.2, normal PVR at 1.19 Ware units, and mild pulmonary hypertension with mPAP of 34mmHg with RVSP
of 63mmHg. Patient was diuresed and discharged on 03/02/2024. While awaiting TAVR, he obtained a CT TAVR on 03/14/2024 showing a masslike opacity/consolidation in the RLL measuring up to 6 cm, as well as bronchial wall thickening with patchy
infiltrate seen in the LLL, concerning for bilateral lower lobe pneumonia. There is also mediastinal + hilar lymphadenopathy. Repeat CXR today also shows persistent focal parenchymal opacity in the RLL. Pulmonary service now consulted for
additional management/recommendations.
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
Impression:
#Abnormal CT TAVR with RLL masslike opacity with LLL bronchial wall thickening/infiltrate, concerning for primary bronchogenic lung cancer; unlikely multifocal pneumonia given he lacks clinical symptoms for infection
#Recent sputum culture growing MSSA on 03/16/2024 Tx with Augmentin x 7 days
#Severe aortic stenosis s/p TAVR on 04/26/2024
#Chronic systolic heart failure/chronic HFrEF
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
#CAD s/p CABG
#Acute kidney injury (Baseline Cr: 1.1) - LIZZ now resolved
#Former tobacco use disorder
#Permanent A-fib
Plan:
- Patient is not on supplemental oxygen and saturating 96-97% on room air. No leukocytosis and afebrile; doubtful patient any has a persistent pneumonia however RLL persistent opacification is concerning for neoplasm
- Repeat CT chest done on 04/24/2024 shows persistent RLL spiculated mass measuring 4.7 x 2.8 x 7cm - this is concerning for primary bronchogenic carcinoma.
- The patient is agreeable to robotic bronchoscopy, which will be done this upcoming 04/30/2024
- Continue with heparin drip and stop it Tuesday morning about 4-6 hours prior to procedure
- NPO p MN tuesday AM/Tuesday night
- Maintain SpO2 >90-94% with supplemental O2 as needed
- Incentive spirometer
- Replete electrolytes with K>4, Mg>2
- Maintain euglycemia with goal BG >100 and <180
- prn nebulized bronchodilators
- DVT ppx
After procedure on Tuesday, he will need to follow-up with us in the office. He will also need whole body PET/CT.
Diagnostic Data
CXR 04-24-2024: Focal parenchymal opacity within the right lower lobe. This could represent residual parenchymal disease from previous pneumonia. However, neoplasia/carcinoma is also possible. As warranted, consider further evaluation with a CT of the
chest. Cardiomegaly with no evidence for pulmonary edema pattern.
CT Chest w/o Contrast 04-24-2024: There is a confluent mass-like opacity within the right lower lobe. There has been significant interval improvement in surrounding parenchymal airspace opacities in the right lower lobe since previous examination,
suggesting interval improvement in pneumonia.
The persistent confluent opacity within the right lower lobe could represent neoplasia/carcinoma, with differential consideration of residual organizing pneumonia. For further evaluation, consideration for biopsy. Alternatively, PET/CT scan could be
performed. Also, close CT follow-up could be considered.
1.4 cm precarinal lymph node, stable, with probable fatty central hilum, most likely a reactive inflammatory lymph node.
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
CT TAVR 03-14-2024: Findings most consistent with bibasilar pneumonia, right greater than left. Possibly the basis of aspiration, with variable intraluminal fluid in the trachea and bronchi. Bronchial wall thickening. A neoplastic process is felt to
be less likely, though not entirely excluded, given the more rounded masslike opacity/consolidation in the right lower lobe. There is also mediastinal adenopathy. Short-term follow-up after conservative therapy would be advised to assess for
resolution.
Renal cortical inhomogeneity and subtle irregularity of the peripheral cortical margin, left greater than right, as described. Possibly reflecting cortical scarring. Cannot exclude pyelonephritis in the proper clinical setting. More localized subtle
rounded diminished attenuation on the left. Cannot entirely exclude localized mass. Initial step for further evaluation recommended with ultrasound. In addition, correlate with urinalysis.
Right renal exophytic parapelvic cyst measuring 2.8 cm and posterior medial right exophytic cyst measuring 2.9 cm.
Diverticulosis without acute diverticulitis.
Total time spent today was 35 minutes for this encounter. Time includes reviewing laboratory test/imaging results, reviewing pertinent medical records, obtaining and reviewing medical history, performing an appropriate exam, ordering medications,
tests and procedures. Time also includes documentation of this encounter, coordinating patient care and communicating with other healthcare professionals. Total time does not include separately billed tests performed on this date of service.
Subjective Data
-
Date of Service:
Date of Service: April 28, 2024
Chief Complaint: Pulmonary Follow Up
Subjective:
no new events, remains stable on
awaiting procedure on tuesday
no complaints
Objective Data
Data Reviewed
Vital Signs / I&O / Oxygen:
Vital Signs
Temp Pulse Resp BP Pulse Ox
98.6 F 62 18 116/58 95
04/27/24 22:49 04/28/24 08:47 04/27/24 22:49 04/28/24 08:46 04/28/24 04:55
Intake and Output
04/27/24 04/28/24 04/29/24
06:59 06:59 06:59
Intake Total 880 / 880 664 / 664
Output Total 900 / 900 1200 / 1200
Balance -20 / -20 -536 / -536
SaO2 95
Physical Exam
General: Respiratory Distress (negative) and Comfortable
HEENT: Normocephalic and Anicteric
Cardiovascular: Peripheral Edema (negative)
Respiratory: Clear, Wheeze (negative), Rhonchi (negative) and Non-Labored Respirations
GI: Soft, Non Distended, Non Tender and Normal Bowel Sounds
Neurology: Awake, Alert, Oriented, AO x 3 and Tremors (negative)
Skin: Warm, Dry and Jaundice (negative)
Labs/Micro/Reports
Lab Data
04/28/24 04:01
04/28/24 06:00
Laboratory Results
04/27/24 04/27/24 04/28/24
10:20 10:56 04:01
PT 17.7 H
INR 1.48
APTT Cancelled 88.1 H 88.0 H
Microbiology
04/24/24 10:30 Nose MRSA Screen - Final
No Methicillin Resistant Staphylococcus aureus isolated.
[2024-04-28] MEDS: VITAMIN C 500 MG PO (09:38)
[2024-04-28] MEDS: TYLENOL 650 MG PO (09:38)
[2024-04-28] MEDS: FEOSOL 325 MG PO (09:38)
--- NOTE | 2024-04-28 09:42 | PTCARENOTE ---
pt continues to be vpaced on the monitor, hr in the 60s, vss. O2 is 97% on RA. Bilateral groin sites FIRE LOOKOUT. Pts left groin firm to touch and tender per pt. Eugenie Dimas aware, US ordered. femstop ordered, applied as ordered. Pt c/o pain in groin, when
pressed on, Tylenol given for pain 2/10. pt resting in bed comfortably. pt educated on plan of care and pt verbalized understanding. call brown within reach.
--- NOTE | 2024-04-28 11:32 | W.PN.CD ---
Addendum entered and electronically signed by Norman Cortez MD 04/28/24 12:14:
Patient seen and examined in collaboration with INFRASTRUCTURE TECH; agree with below.
-Patient underwent TAVR on 11/27/2023; has mechanical mitral valve, so currently on a heparin drip as patient needs to undergo pulmonary biopsy on Tuesday to evaluate a lung mass.
-Patient with some groin pain, but no pseudoaneurysm; FemoStop in place for now.
-Will trend hemoglobin.
-monitor technician; continue heparin drip.
Original Note:
Today's Communication / Plan
-
Maintain FemStop until noon H&H
Impression / Plan
-
[employer]: Dr. Morrissey
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
presents prior to TAVR for heparin bridge and cardiac optimization. Patient had prior treatment of PNA and was noted to have residual consolidation vs mass and is being evaluated by pulmonary this admit.
Severe aortic stenosis s/p TAVR (emergent 29 Conley SALO S3) on 04/26/2024
-Follow-up echocardiogram with peak/mean gradient of 14/8 mmHg without aortic regurgitation
-FemStop to left groin due to tenderness with drop in hemoglobin, ultrasound stable
RLL mass
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
-Robotic bronchoscopy, which will be done this upcoming 04/30/2024
HFrEF, NICM (LVEF 35-40%)
-proBNP down from prior admission and CXR did not show congestion so he did not receive diuretic pre-TAVR
-GDMT as tolerated
-ACEI/ARB: Lisinopril 5 mg
-SGLT2: Jardiance is affordable, can consider
-Beta-aldo: Nadolol
-MRA: He had hyperkalemia when he presented to the ER 02/27/2024
-Trend daily weight, I/O, & BMP
Mitral valve replacement with mechanical valve (35-mm [place])
-Stable on most recent echocardiogram
-Start heparin drip if/when INR <2.5, await INR labs are pending
Permanent atrial fibrillation
-Continue rate control with nadolol and digoxin
-Oral Anticoagulation: He is on warfarin in the outpatient setting (mechanical mitral valve), bridging with heparin drip as above
-[id number]: score at least 4 (Heart failure, age 75 or more, Vascular disease)
Coronary artery disease
-CABG 2008 (SVG-OM)
-Stable without chest pain
-On aspirin and warfarin in the outpatient setting
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
Former smoker, continued cessation recommended
DATA:
Chest CT 04/24/24
IMPRESSION:
There is a confluent mass-like opacity within the right lower lobe. There has been significant interval improvement in surrounding parenchymal airspace opacities in the right lower lobe since previous examination, suggesting interval improvement in
pneumonia.
The persistent confluent opacity within the right lower lobe could represent neoplasia/carcinoma, with differential consideration of residual organizing pneumonia. For further evaluation, consideration for biopsy. Alternatively, PET/CT scan could be
performed. Also, close CT follow-up could be considered.
1.4 cm precarinal lymph node, stable, with probable fatty central hilum, most likely a reactive inflammatory lymph node.
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
Cardiac catheterization, 03/02/2024:
1. Right dominant circulation with a 70+% stenosis of the lower branch of
OM1 status post single-vessel bypass with a patent SVG to OM1 with no evidence of degeneration.
2. Severely elevated filling pressures (PCWP = 30 mmHg at 65.3 kg).
3. Status post mechanical mitral valve replacement with normal leaflet excursion.
4. Severe aortic valve stenosis by echocardiography.
5. 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
6. 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
Echocardiogram, 02/27/2024:
Moderately reduced left ventricular systolic function.
Left ventricular ejection fraction is 35-40%.
Mechanical mitral valve with a mean gradient of 4 mmHg and no mitral
regurgitation
Severe aortic stenosis. Peak gradient 42 mmHg. Mean gradient 23 mmHg.
Dimensionless index 0.2
Severe pulmonary hypertension with estimated PA pressure 75 to 80 mmHg
When compared with the previous report 09/26/2023 estimated EF is reduced.
Previously 40 to 45%. Estimated PA pressure is increased. Previously 64 mmHg.
Physical Exam
Vital Signs/Labs
Vital Signs
Temp Pulse Resp BP Pulse Ox
98.6 F 62 18 116/58 97
04/28/24 07:20 04/28/24 08:47 04/28/24 07:20 04/28/24 08:46 04/28/24 07:20
04/27/24 04/28/24 04/29/24
06:59 06:59 06:59
Actual Weight 66.7 kg 66.5 kg
04/28/24 06:00
PT 17.7 Sec (11.4-14.6) H 04/28/24 04:01
INR 1.48 04/28/24 04:01
APTT 88.0 Sec (23.4-35.0) H 04/28/24 04:01
04/24/24
10:30
Vuz-[id number] Pept 3200
Physical Exam
Constitutional: No acute distress and Comfortable
EENT: Anicteric and Moist mucous membranes
Cardiovascular: Rhythm & rate is regular, Pedal edema is absent, S1S2 is normal and Other (Mechanical mitral valve)
Respiratory: Respiratory effort normal and Lungs clear to auscul.
GI: Soft, Distention absent, Flat, Non tender and Normal bowel sounds
Neuro/Psych: AO x 3
Other: Skin (Warm and dry) and Cath Site (Ecchymosis to left groin, no hematoma)
Data Reviewed
-
Date of Service: April 28, 2024
[2024-04-28 11:59] VITALS: BP 124/70
[2024-04-28 12:32] LABS: Hematocrit 25.1 % (39.0-52.0); Hemoglobin 8.4 g/dL (13.0-18.0); Mean Corp Hgb Conc. 33.5 g/dL (33.0-37.0); Mean Corpuscular Hgb 30.1 pg (27.0-31.0); Platelet Count 84 10^3/uL (130-400); Red Blood Cell Count 2.79 10^6/uL (4.70-6.10); Red Cell Dist. Width 15.3 % (11.5-14.5); White Blood Cell Count 5.6 10^3/uL (4.8-10.8)
[2024-04-28 15:54] VITALS: BP 108/59
[2024-04-28] MEDS: LIPITOR 10 MG PO (17:56)
--- NOTE | 2024-04-28 18:19 | PTCARENOTE ---
pt continues to be vpaced on the monitor, hr in the 80s, vss. femstop removed per dorys quan NP. pt denies pain in bilateral groins. 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 pt ambulating OOB to BR and tolerating well. heparin gtt running per protocol,
see documentation. pt educated on plan of care and pt verbalized understanding. call brown within reach.
[2024-04-28 19:45] VITALS: BP 112/60
[2024-04-28 23:09] VITALS: BP 112/54
[2024-04-29] VITALS (7 sets, daily range): BP systolic 92–131; BP diastolic 51–71; BMI 23.1; BMI 22.8
--- NOTE | 2024-04-29 01:37 | PTCARENOTE ---
Heparin infusing at 700 units/hr. Remains V-Paced on the monitor. No complaints. Sleeping at intervals.
[2024-04-29 05:17] LABS: Hematocrit 25.8 % (39.0-52.0); Hemoglobin 8.7 g/dL (13.0-18.0); Mean Corp Hgb Conc. 33.7 g/dL (33.0-37.0); Mean Corpuscular Hgb 29.8 pg (27.0-31.0); Mean Corpuscular Volume 88.4 fL (80.0-94.0); Mean Platelet Volume 10.5 fL (7.4-10.4); Platelet Count 99 10^3/uL (130-400); Red Blood Cell Count 2.92 10^6/uL (4.70-6.10); Red Cell Dist. Width 15.3 % (11.5-14.5); White Blood Cell Count 5.8 10^3/uL (4.8-10.8)
[2024-04-29 05:43] LABS: INR 1.32; PT 16.2 Sec (11.4-14.6)
[2024-04-29 05:44] LABS: APTT 83.5 Sec (23.4-35.0)
--- NOTE | 2024-04-29 05:54 | W.PN.CT ---
Addendum entered and electronically signed by Dani Umaña MD 04/29/24 11:15:
I saw and examined the patient.
The PA's note was reviewed and I agree with the note.
Comment:
Hgb stable. U/S negative.
Diuresis today
Continue heparing gtt until 1:30AM for bronch Bx tomorrow
Original Note:
Today's Communication / Plan
-
-pod#3
-no issues overnight
-04/28 L groin with small amount of ecchymosis/hematoma, femstop placed/removed. No PSA/AVF/hematoma on US. Hgb 9.4->8.3->8.7 this AM
-in a-fib with v-pacing
- IV Heparin @ 700 units/hr for a-fib and mechanical MVR (ptt goal 73-111). PTT 83.5 and INR 1.38 today
-platelets trending up - 84K -> 99K today (114K on 04/27)- follow
-Echo 04/27 ok
-current meds (Nadolol, Digoxin, Lipitor). On Coumadin preop
-plans for robotic bronchoscopy of RLL mass on 04/30, NPO p MN
-encourage IS, OOB
Assessment / Plan
-
- Severe symptomatic - s/p Left trans femoral TAVR with a 29 mm Conley TAVR valve on 04/26/24, pod #3
- Intraop TTE: Preop LVEF was 35% and was 40% following TAVR without inotropic support, no regional wma or dyskinesia. The aortic valve was well seated without detectable PVL and mean gradient of 2mmHg
- LVEDP pre TAVR was 20mmHg
- Hypertension
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
- History of open heart surgery with mitral valve replacement, mechanical valve
- Permanent atrial fibrillation with permanent pacemaker implanted
- Coronary artery disease -status post CABG
- Severe pulmonary hypertension
- Recent episode of pneumonia
- RLL spiculated mass concerning for malignancy- plans for possible robotic bronchoscopy on 04/30
Subjective
Procedure
- s/p Left trans femoral TAVR with a 29 mm Conley TAVR valve on 04/26/24
-
Date of Service: April 29, 2024
Objective Data
-
Lab Results
04/29/24 04:59
PT 16.2 Sec (11.4-14.6) H 04/29/24 04:59
INR 1.32 04/29/24 04:59
APTT 83.5 Sec (23.4-35.0) H 04/29/24 04:59
Vital Signs
Vital Signs
Temp Pulse Resp BP Pulse Ox
98.6 F 63 18 131/58 95
04/29/24 04:46 04/29/24 04:48 04/29/24 04:46 04/29/24 04:48 04/29/24 04:46
CT Intake/Output/Weight
04/28/24 04/28/24 04/29/24
06:59 18:59 06:59
Intake Total 184 / 664 240 / 720 480 / 720
Output Total 125 / 125
Balance 184 / -536 115 / 595 480 / 595
SaO2: 95
Physical Exam
-
General: Awake and Oriented
Cardiovascular: Regular rate & rhythm and Other (mechanical MV)
Respiratory: Clear
Incision: Other
Extremities: No Edema and No Erythema
small hematoma
Data Reviewed
-
Lab Results: Results Reviewed
Medications: Active Meds Reviewed
Chest X-Ray: Report Reviewed
ECG: Report Reviewed
[2024-04-29 05:57] LABS: Blood Urea Nitrogen 30 mg/dl (9-20); Calcium 9.3 mg/dl (8.4-10.2); Carbon Dioxide 27 mmol/L (22-30); Chloride 105 mmol/L (98-107); Estimated Creatinine Clearance 43 ml/min; Glucose 99 mg/dl (70-99); Potassium 4.5 mmol/L (3.5-5.1); Sodium 138 mmol/L (135-145); eGFR > 60.00
[2024-04-29] MEDS: OCUVITE SOFTGEL 1 CAP PO (07:43)
[2024-04-29] MEDS: CORGARD 80 MG PO ×2 (07:43→20:05)
[2024-04-29] MEDS: LANOXIN 125 MCG PO (07:43)
[2024-04-29] MEDS: LASIX 40 MG IV (07:43)
[2024-04-29] MEDS: FEOSOL 325 MG PO (07:43)
[2024-04-29] MEDS: ZESTRIL 5 MG PO (07:43)
[2024-04-29] MEDS: VITAMIN C 500 MG PO (07:43)
--- NOTE | 2024-04-29 10:05 | W.PN.PUL3 ---
Today's Communication / Plan
-
Doing well, stable on RA
Reviewed plan with RN--NPO p MN, heparin hold
Discharge planning hopefully post procedure if there is no complications
Await bronch in AM
Assessment
-
89-year-old former tobacco smoker with a past medical history of CAD s/p CABG, A-fib, + mechanical MVR on Coumadin presents with elective TAVR. Patient recently hospitalized from 02/26 - 03/02/2024 due to acute decompensated heart failure due to
underlying severe aortic stenosis. Patient had echo on 02/27/2024 showing reduced LV systolic function with EF 35-40%, severe aortic stenosis with a mean gradient of 23 mmHg. At that time there was severe pulmonary hypertension with PASP of 75-80
mmHg. Patient recently had left heart catheterization on 03/02/2024 showing severely elevated filling pressures with PCWP of 30 mmHg, with low CI at 1.2, normal PVR at 1.19 Ware units, and mild pulmonary hypertension with mPAP of 34mmHg with RVSP
of 63mmHg. Patient was diuresed and discharged on 03/02/2024. While awaiting TAVR, he obtained a CT TAVR on 03/14/2024 showing a masslike opacity/consolidation in the RLL measuring up to 6 cm, as well as bronchial wall thickening with patchy
infiltrate seen in the LLL, concerning for bilateral lower lobe pneumonia. There is also mediastinal + hilar lymphadenopathy. Repeat CXR today also shows persistent focal parenchymal opacity in the RLL. Pulmonary service now consulted for
additional management/recommendations.
Chronic conditions APPLICATION SUPPORT ADMINISTRATOR: Permanent A-fib, CAD s/p CABG (2008), severe aortic stenosis, mechanical mitral valve replacement (35mm [place] � 2008) on Coumadin, former tobacco use disorder
Impression:
#Abnormal CT TAVR with RLL masslike opacity with LLL bronchial wall thickening/infiltrate, concerning for primary bronchogenic lung cancer; unlikely multifocal pneumonia given he lacks clinical symptoms for infection
#Recent sputum culture growing MSSA on 03/16/2024 Tx with Augmentin x 7 days
#Severe aortic stenosis s/p TAVR on 04/26/2024
#Chronic systolic heart failure/chronic HFrEF
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
#CAD s/p CABG
#Acute kidney injury (Baseline Cr: 1.1) - LIZZ now resolved
#Former tobacco use disorder
#Permanent A-fib
Plan:
- Patient is not on supplemental oxygen and saturating 96-97% on room air. No leukocytosis and afebrile; doubtful patient any has a persistent pneumonia however RLL persistent opacification is concerning for neoplasm
- Repeat CT chest done on 04/24/2024 shows persistent RLL spiculated mass measuring 4.7 x 2.8 x 7cm - this is concerning for primary bronchogenic carcinoma.
- The patient is agreeable to robotic bronchoscopy, which will be done this upcoming 04/30/2024
- Continue with heparin drip and stop it Tuesday about 4-6 hours prior to procedure
- NPO p MN tuesday/Tuesday night
- Maintain SpO2 >90-94% with supplemental O2 as needed
- Incentive spirometer
- Replete electrolytes with K>4, Mg>2
- Maintain euglycemia with goal BG >100 and <180
- prn nebulized bronchodilators
- DVT ppx
After procedure on Tuesday, he will need to follow-up with us in the office. He will also need whole body PET/CT.
Diagnostic Data
CXR 04-24-2024: Focal parenchymal opacity within the right lower lobe. This could represent residual parenchymal disease from previous pneumonia. However, neoplasia/carcinoma is also possible. As warranted, consider further evaluation with a CT of the
chest. Cardiomegaly with no evidence for pulmonary edema pattern.
CT Chest w/o Contrast 04-24-2024: There is a confluent mass-like opacity within the right lower lobe. There has been significant interval improvement in surrounding parenchymal airspace opacities in the right lower lobe since previous examination,
suggesting interval improvement in pneumonia.
The persistent confluent opacity within the right lower lobe could represent neoplasia/carcinoma, with differential consideration of residual organizing pneumonia. For further evaluation, consideration for biopsy. Alternatively, PET/CT scan could be
performed. Also, close CT follow-up could be considered.
1.4 cm precarinal lymph node, stable, with probable fatty central hilum, most likely a reactive inflammatory lymph node.
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
CT TAVR 03-14-2024: Findings most consistent with bibasilar pneumonia, right greater than left. Possibly the basis of aspiration, with variable intraluminal fluid in the trachea and bronchi. Bronchial wall thickening. A neoplastic process is felt to
be less likely, though not entirely excluded, given the more rounded masslike opacity/consolidation in the right lower lobe. There is also mediastinal adenopathy. Short-term follow-up after conservative therapy would be advised to assess for
resolution.
Renal cortical inhomogeneity and subtle irregularity of the peripheral cortical margin, left greater than right, as described. Possibly reflecting cortical scarring. Cannot exclude pyelonephritis in the proper clinical setting. More localized subtle
rounded diminished attenuation on the left. Cannot entirely exclude localized mass. Initial step for further evaluation recommended with ultrasound. In addition, correlate with urinalysis.
Right renal exophytic parapelvic cyst measuring 2.8 cm and posterior medial right exophytic cyst measuring 2.9 cm.
Diverticulosis without acute diverticulitis.
Total time spent today was 35 minutes for this encounter. Time includes reviewing laboratory test/imaging results, reviewing pertinent medical records, obtaining and reviewing medical history, performing an appropriate exam, ordering medications,
tests and procedures. Time also includes documentation of this encounter, coordinating patient care and communicating with other healthcare professionals. Total time does not include separately billed tests performed on this date of service.
Subjective Data
-
Date of Service:
Date of Service: April 29, 2024
Chief Complaint: Pulmonary Follow Up
Subjective:
no new events/complaints
stable on RA
Objective Data
Data Reviewed
Vital Signs / I&O / Oxygen:
Vital Signs
Temp Pulse Resp BP Pulse Ox
98.9 F 60 20 119/61 97
04/29/24 07:31 04/29/24 08:00 04/29/24 07:31 04/29/24 07:43 04/29/24 07:47
Intake and Output
04/28/24 04/29/24 04/30/24
06:59 06:59 06:59
Intake Total 664 / 664 720 / 720 480 / 480
Output Total 1200 / 1200 125 / 125
Balance -536 / -536 595 / 595 480 / 480
SaO2 97
Physical Exam
General: Respiratory Distress (negative) and Comfortable
HEENT: Normocephalic and Anicteric
Cardiovascular: Peripheral Edema (negative)
Respiratory: Clear, Wheeze (negative), Rhonchi (negative) and Non-Labored Respirations
GI: Soft, Non Distended, Non Tender and Normal Bowel Sounds
Neurology: Awake, Alert, Oriented, AO x 3 and Tremors (negative)
Skin: Warm, Dry and Jaundice (negative)
Labs/Micro/Reports
Lab Data
04/29/24 04:59
04/29/24 04:59
Laboratory Results
04/29/24
04:59
PT 16.2 H
INR 1.32
APTT 83.5 H
--- NOTE | 2024-04-29 10:19 | W.PN.CD ---
Today's Communication / Plan
-
-Will undergo robotic bronchoscopy tomorrow 04/30/2024.
-Continue heparin drip today.
Impression / Plan
-
Engineer Booster And Exhauster: Dr. Morrissey
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
presents prior to TAVR for heparin bridge and cardiac optimization. Patient had prior treatment of PNA and was noted to have residual consolidation vs mass and is being evaluated by pulmonary this admit.
Severe aortic stenosis s/p TAVR (emergent 29 Conley SALO S3) on 04/26/2024
-Stable; follow-up echocardiogram with peak/mean gradient of 14/8 mmHg without aortic regurgitation
-Groin stable; no pain, FemoStop removed, and no abnormal findings on ultrasound.
RLL mass
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
-Will undergo robotic bronchoscopy tomorrow 04/30/2024.
HFrEF, NICM (LVEF 35-40%)
-proBNP down from prior admission and CXR did not show congestion so he did not receive diuretic pre-TAVR
-GDMT as tolerated
-ACEI/ARB: Lisinopril 5 mg
-SGLT2: Jardiance is affordable, can consider
-Beta-aldo: Nadolol
-MRA: He had hyperkalemia when he presented to the ER 02/27/2024
-Trend daily weight, I/O, & BMP
Mitral valve replacement with mechanical valve (35-mm [place])
-Stable on most recent echocardiogram
-Continue heparin drip today.
Permanent atrial fibrillation
-Continue rate control with nadolol and digoxin
-Oral Anticoagulation: He is on warfarin in the outpatient setting (mechanical mitral valve), bridging with heparin drip as above.
-[id number]: score at least 4 (Heart failure, age 75 or more, Vascular disease)
Coronary artery disease
-CABG 2008 (SVG-OM)
-Remains stable without chest pain.
-On aspirin and warfarin in the outpatient setting
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
Former smoker, continued cessation recommended
DATA:
Chest CT 04/24/24
IMPRESSION:
There is a confluent mass-like opacity within the right lower lobe. There has been significant interval improvement in surrounding parenchymal airspace opacities in the right lower lobe since previous examination, suggesting interval improvement in
pneumonia.
The persistent confluent opacity within the right lower lobe could represent neoplasia/carcinoma, with differential consideration of residual organizing pneumonia. For further evaluation, consideration for biopsy. Alternatively, PET/CT scan could be
performed. Also, close CT follow-up could be considered.
1.4 cm precarinal lymph node, stable, with probable fatty central hilum, most likely a reactive inflammatory lymph node.
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
Cardiac catheterization, 03/02/2024:
1. Right dominant circulation with a 70+% stenosis of the lower branch of
OM1 status post single-vessel bypass with a patent SVG to OM1 with no evidence of degeneration.
2. Severely elevated filling pressures (PCWP = 30 mmHg at 65.3 kg).
3. Status post mechanical mitral valve replacement with normal leaflet excursion.
4. Severe aortic valve stenosis by echocardiography.
5. 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
6. 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
Echocardiogram, 02/27/2024:
Moderately reduced left ventricular systolic function.
Left ventricular ejection fraction is 35-40%.
Mechanical mitral valve with a mean gradient of 4 mmHg and no mitral
regurgitation
Severe aortic stenosis. Peak gradient 42 mmHg. Mean gradient 23 mmHg.
Dimensionless index 0.2
Severe pulmonary hypertension with estimated PA pressure 75 to 80 mmHg
When compared with the previous report 09/26/2023 estimated EF is reduced.
Previously 40 to 45%. Estimated PA pressure is increased. Previously 64 mmHg.
Physical Exam
Vital Signs/Labs
Vital Signs
Temp Pulse Resp BP Pulse Ox
98.9 F 60 20 119/61 97
04/29/24 07:31 04/29/24 08:00 04/29/24 07:31 04/29/24 07:43 04/29/24 07:47
04/28/24 04/29/24 04/30/24
06:59 06:59 06:59
Actual Weight 66.5 kg 66 kg
04/29/24 04:59
04/29/24 04:59
PT 16.2 Sec (11.4-14.6) H 04/29/24 04:59
INR 1.32 04/29/24 04:59
APTT 83.5 Sec (23.4-35.0) H 04/29/24 04:59
04/24/24
10:30
Ovn-N-Mdjtuqqyztx Pept 3200
Physical Exam
Constitutional: No acute distress and Comfortable
EENT: Anicteric
Cardiovascular: Rhythm & rate is regular, Pedal edema present (Trace), Systolic murmur present (3/6) and S1S2 is normal (Mechanical S1/S2)
Respiratory: Respiratory effort normal and Lungs clear to auscul.
GI: Soft
Neuro/Psych: AO x 3
Other: Skin (Warm, dry, intact)
Data Reviewed
-
Date of Service: April 29, 2024
EKG: Tracing Personally Visualized and interpreted (Telemetry: Atrial fibrillation, V paced)
Medical Tests (PFT, Pathology etc): Discussed with Nurse and Discussed with Patient
Labs: Labs Reviewed by me
[2024-04-29] MEDS: HEPARIN 25000 UNITS/250 ML IV (11:42)
--- NOTE | 2024-04-29 17:00 | PTCARENOTE ---
pt is vpaced on the monitor, hr in the 60s, vss. pt offers no complaints at this time. pt educated on plan of care, npo at midnight. pt verbalized understanding. pt has been OOB to chair, walking the halls and tolerating well. heparin gtt running
per protocol, see documentation. call brown within reach.
[2024-04-29] MEDS: LIPITOR 10 MG PO (17:24)
--- NOTE | 2024-04-29 21:40 | PTCARENOTE ---
received patient at the change of shift. AAOx3. denies any pain. neuro intact. Vpaced 60. bp stable. heparin gtt infusing at 7 ml/hr. IV site patent. b/l groin sites intact, ecchymotic. + doppler pulses. trace LE edema noted. reviewed plan of care
with patient and verbalized understanding. NPO at midnight. call brown within reach. calls appropriately.
[2024-04-30] VITALS (16 sets, daily range): BP systolic 110–144; BP diastolic 53–79; BMI 22.9
[2024-04-30 05:11] LABS: Hematocrit 25.5 % (39.0-52.0); Hemoglobin 8.6 g/dL (13.0-18.0); Mean Corp Hgb Conc. 33.7 g/dL (33.0-37.0); Mean Corpuscular Hgb 30.7 pg (27.0-31.0); Mean Corpuscular Volume 91.1 fL (80.0-94.0); Mean Platelet Volume 10.4 fL (7.4-10.4); Platelet Count 94 10^3/uL (130-400); Red Cell Dist. Width 15.2 % (11.5-14.5); White Blood Cell Count 5.2 10^3/uL (4.8-10.8)
--- NOTE | 2024-04-30 05:21 | W.PN.CT ---
Today's Communication / Plan
-
-pod#4
-no issues overnight
-Heparin gtt off @ 0130 for RLL mass biopsy today, NPO
-04/28 L groin with small amount of ecchymosis/hematoma, femstop placed/removed. No PSA/AVF/hematoma on US. Hgb 9.4->8.3->8.7->8.6 this AM
-in a-fib with v-pacing
-platelets trending up - 84K -> 99K ->94K today (114K on 04/27)- follow
-Echo 04/27 ok
-current meds (Nadolol, Digoxin, Lipitor). On Coumadin preop
-encourage IS, OOB
Assessment / Plan
-
- Severe symptomatic - s/p Left trans femoral TAVR with a 29 mm Conley TAVR valve on 04/26/24, pod #4
- Intraop TTE: Preop LVEF was 35% and was 40% following TAVR without inotropic support, no regional wma or dyskinesia. The aortic valve was well seated without detectable PVL and mean gradient of 2mmHg
- LVEDP pre TAVR was 20mmHg
- Hypertension
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
- History of open heart surgery with mitral valve replacement, mechanical valve
- Permanent atrial fibrillation with permanent pacemaker implanted
- Coronary artery disease -status post CABG
- Severe pulmonary hypertension
- Recent episode of pneumonia
- RLL spiculated mass concerning for malignancy- plans for possible robotic bronchoscopy on Mon 04/30
Subjective
Procedure
- s/p Left trans femoral TAVR with a 29 mm Conley TAVR valve on 04/26/24
-
Date of Service: April 30, 2024
Objective Data
-
Lab Results
04/30/24 04:47
PT 16.2 Sec (11.4-14.6) H 04/29/24 04:59
INR 1.32 04/29/24 04:59
APTT 83.5 Sec (23.4-35.0) H 04/29/24 04:59
Vital Signs
Vital Signs
Temp Pulse Resp BP Pulse Ox
98.3 F 61 18 124/79 96
04/30/24 04:51 04/30/24 05:00 04/30/24 04:51 04/30/24 04:41 04/30/24 04:51
CT Intake/Output/Weight
04/29/24 04/29/24 04/30/24
06:59 18:59 06:59
Intake Total 480 / 720 480 / 680 200 / 680
Balance 480 / 595 480 / 680 200 / 680
SaO2: 96
Physical Exam
-
General: Awake and Oriented
Cardiovascular: Regular rate & rhythm
Respiratory: Equal
Incision: Clean and Intact
Data Reviewed
-
Lab Results: Results Reviewed
Medications: Active Meds Reviewed
Chest X-Ray: Report Reviewed
ECG: Report Reviewed
[2024-04-30 05:30] LABS: INR 1.25; PT 15.5 Sec (11.4-14.6)
[2024-04-30 05:34] LABS: Blood Urea Nitrogen 34 mg/dl (9-20); Calcium 9.1 mg/dl (8.4-10.2); Carbon Dioxide 28 mmol/L (22-30); Chloride 103 mmol/L (98-107); Estimated Creatinine Clearance 40 ml/min; Glucose 101 mg/dl (70-99); Potassium 4.4 mmol/L (3.5-5.1); Sodium 136 mmol/L (135-145); eGFR 58.17
--- NOTE | 2024-04-30 06:59 | W.PN.CD ---
Today's Communication / Plan
-
FOB with bx today
Resume heparin when safe post FOB
Warfarin 4mg tonight to get started. Prob 2.5 tomorrow unless INR rising faster than expected
Impression / Plan
-
Human Resources Partner: Dr. Morrissey
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
presents prior to TAVR for heparin bridge and cardiac optimization. Patient had prior treatment of PNA and was noted to have residual consolidation vs mass and is being evaluated by pulmonary this admit.
Severe aortic stenosis s/p TAVR (emergent 29 Conley SALO S3) on 04/26/2024
-Stable; follow-up echocardiogram with peak/mean gradient of 14/8 mmHg without aortic regurgitation. He feels GREAT
-Mildly decreased Hb post TAVR but stable
-Groin stable; no pain, FemoStop removed, and no abnormal findings on ultrasound.
RLL mass
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
-Will undergo robotic bronchoscopy tomorrow 04/30/2024.
HFrEF, NICM (LVEF 35-40%)
-proBNP down from prior admission and CXR did not show congestion so he did not receive diuretic pre-TAVR
-GDMT as tolerated
-ACEI/ARB: Lisinopril 5 mg
-SGLT2: Jardiance is affordable, can consider
-Beta-aldo: Nadolol
-MRA: He had hyperkalemia when he presented to the ER 02/27/2024
-Trend daily weight, I/O, & BMP
Mitral valve replacement with mechanical valve (35-mm [place])
-Stable on most recent echocardiogram
-Resume heparin after bronch today
-Warfarin 4mg tonight (home dose apparently 2.5 a/w 1.25)
Permanent atrial fibrillation
-Continue rate control with nadolol and digoxin
-Oral Anticoagulation: He is on warfarin in the outpatient setting (mechanical mitral valve), bridging with heparin drip as above.
-[id number]: score at least 4 (Heart failure, age 75 or more, Vascular disease)
Coronary artery disease
-CABG 2008 (SVG-OM)
-Remains stable without chest pain.
-On aspirin and warfarin in the outpatient setting
SSS s/p Medtronic PPM, followed in outpatient device clinic, stable last interrogation, IMPOSER 93%, longevity 8 years 10 months
Former smoker, continued cessation recommended
DATA:
Chest CT 04/24/24
IMPRESSION:
There is a confluent mass-like opacity within the right lower lobe. There has been significant interval improvement in surrounding parenchymal airspace opacities in the right lower lobe since previous examination, suggesting interval improvement in
pneumonia.
The persistent confluent opacity within the right lower lobe could represent neoplasia/carcinoma, with differential consideration of residual organizing pneumonia. For further evaluation, consideration for biopsy. Alternatively, PET/CT scan could be
performed. Also, close CT follow-up could be considered.
1.4 cm precarinal lymph node, stable, with probable fatty central hilum, most likely a reactive inflammatory lymph node.
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
Cardiac catheterization, 03/02/2024:
1. Right dominant circulation with a 70+% stenosis of the lower branch of
OM1 status post single-vessel bypass with a patent SVG to OM1 with no evidence of degeneration.
2. Severely elevated filling pressures (PCWP = 30 mmHg at 65.3 kg).
3. Status post mechanical mitral valve replacement with normal leaflet excursion.
4. Severe aortic valve stenosis by echocardiography.
5. 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
6. 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
Echocardiogram, 02/27/2024:
Moderately reduced left ventricular systolic function.
Left ventricular ejection fraction is 35-40%.
Mechanical mitral valve with a mean gradient of 4 mmHg and no mitral
regurgitation
Severe aortic stenosis. Peak gradient 42 mmHg. Mean gradient 23 mmHg.
Dimensionless index 0.2
Severe pulmonary hypertension with estimated PA pressure 75 to 80 mmHg
When compared with the previous report 09/26/2023 estimated EF is reduced.
Previously 40 to 45%. Estimated PA pressure is increased. Previously 64 mmHg.
Physical Exam
Vital Signs/Labs
Vital Signs
Temp Pulse Resp BP Pulse Ox
98.3 F 61 18 124/79 96
04/30/24 04:51 04/30/24 05:00 04/30/24 04:51 04/30/24 04:41 04/30/24 05:21
04/28/24 04/29/24 04/30/24
06:59 06:59 06:59
Actual Weight 146 lb 9.718 oz 145 lb 8.081 oz 146 lb 2.664 oz
04/30/24 04:47
04/30/24 04:47
PT 15.5 Sec (11.4-14.6) H 04/30/24 04:47
INR 1.25 04/30/24 04:47
APTT 42.0 Sec (23.4-35.0) H 04/30/24 04:47
04/24/24
10:30
[id number] Pept 3200
Physical Exam
Constitutional: No acute distress and Comfortable
EENT: Anicteric
Cardiovascular: Rhythm & rate is regular and S1S2 is normal (mechanical mitral closure)
Respiratory: Respiratory effort normal, Lungs clear to auscul., Wheeze Absent and Crackles Absent
GI: Distention absent and Non tender
Neuro/Psych: AO x 3 and Motor deficits absent
Other: Cath Site (small ecchymotic areas both groins. No pulsatile mass)
Data Reviewed
-
Date of Service: April 30, 2024
--- NOTE | 2024-04-30 07:17 | PTCARENOTE ---
Report given to GI lab by assistant casino shift manager RN, patient sent for bronchoscopy. IV heparin had been stopped at 0130.
[2024-04-30] MEDS: LANOXIN 125 MCG PO (11:36)
[2024-04-30] MEDS: CORGARD 80 MG PO ×2 (11:36→19:13)
[2024-04-30] MEDS: FLUSH (NSS) 1 FLUSH IV (11:37)
--- NOTE | 2024-04-30 12:37 | CM ---
Chart reviewed. Patient received his Bronchoscopy this AM. Patient is independent of ADLS, lives with his brother and KELVIN, in a 3 STH, 1 TYSON, 0 DME. Patient does not want to take lovenox. Plan is for the patient to return to his brothers house
once his INR is therapeutic. Plan is for the patient to return to his brothers house [address] [place] [address] Transitional RN. CM to follow
[2024-04-30] MEDS: FEOSOL 325 MG PO (13:30)
[2024-04-30] MEDS: OCUVITE SOFTGEL 1 CAP PO (13:30)
[2024-04-30] MEDS: ZESTRIL 5 MG PO (13:31)
[2024-04-30] MEDS: VITAMIN C 500 MG PO (13:31)
[2024-04-30] MEDS: LASIX 40 MG PO (13:31)
--- NOTE | 2024-04-30 14:14 | PTCARENOTE ---
Patient returned from bronchoscopy at 1115, AAO, VSS. Tolerated lunch, given PO meds. Does complain of a sore throat but able to swallow and eat without difficulty. Reported one episode of hemoptysis, instructed to notify nurse with any further
bleeding. To resume IV heparin at 1500. Family with the patient, visiting with him in the patient lounge.
[2024-04-30] MEDS: LIPITOR 10 MG PO (18:12)
[2024-04-30] MEDS: COUMADIN 4 MG PO (18:12)
[2024-04-30 21:27] LABS: APTT 68.7 Sec (23.4-35.0)
--- NOTE | 2024-04-30 23:39 | PTCARENOTE ---
Pt received at start of shift. HR v-paced 60s. 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 Pt OOB ambulating in room and halls by self. Pt updated on plan of care. Heparin infusing at 800u/hr. Neuro WNL. Pt denies any CP, SOB, or
lightheadedness/dizziness. Informed to notify RN if any changes, call brown within reach.
[2024-05-01] VITALS (8 sets, daily range): BP systolic 88–138; BP diastolic 48–67; BMI 23.3
[2024-05-01 04:00] LABS: Hematocrit 25.9 % (39.0-52.0); Hemoglobin 8.7 g/dL (13.0-18.0); Mean Corp Hgb Conc. 33.6 g/dL (33.0-37.0); Mean Corpuscular Hgb 30.3 pg (27.0-31.0); Mean Corpuscular Volume 90.2 fL (80.0-94.0); Mean Platelet Volume 10.6 fL (7.4-10.4); Platelet Count 101 10^3/uL (130-400); Red Blood Cell Count 2.87 10^6/uL (4.70-6.10); Red Cell Dist. Width 15.2 % (11.5-14.5); White Blood Cell Count 6.4 10^3/uL (4.8-10.8)
[2024-05-01 04:12] LABS: INR 1.32; PT 16.2 Sec (11.4-14.6)
[2024-05-01 04:14] LABS: APTT 104.9 Sec (23.4-35.0)
[2024-05-01 04:49] LABS: Blood Urea Nitrogen 41 mg/dl (9-20); Carbon Dioxide 26 mmol/L (22-30); Chloride 102 mmol/L (98-107); Estimated Creatinine Clearance 32 ml/min; Glucose 166 mg/dl (70-99); Potassium 4.7 mmol/L (3.5-5.1); Sodium 135 mmol/L (135-145)
--- NOTE | 2024-05-01 05:00 | W.PN.CT ---
Today's Communication / Plan
-
-No major issues overnight. Hemodynamically and neurologically intact
-Underwent bronchoscopy/biopsy of RLL mass yesterday 04/30. F/U cultures/cytology/pathology
-On Heparin (@ 800 units/hr) to Coumadin bridge, INR 1.32 after 4mg Coumadin yesterday
-H/H stable @ 8.7/25.9
-Platelets stable @ 101K
-Groin C/D/I without significant hematoma, mild ecchymosis
-Repeat echo 04/27 showed a well seated TAVR with PG/MG of 14/8 mmHg, no AI, LVEF 55-60%
-Encourage use of IS
-OOB into chair/Ambulate
Assessment / Plan
-
- Severe symptomatic - s/p Left trans femoral TAVR with a 29 mm Conley TAVR valve on 04/26/24, pod #5
- Intraop TTE: Preop LVEF was 35% and was 40% following TAVR without inotropic support, no regional wma or dyskinesia. The aortic valve was well seated without detectable PVL and mean gradient of 2mmHg
- LVEDP pre TAVR was 20mmHg
- Hypertension
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
- History of open heart surgery with mitral valve replacement, mechanical valve
- Permanent atrial fibrillation with permanent pacemaker implanted
- Coronary artery disease -status post CABG
- Severe pulmonary hypertension
- Recent episode of pneumonia
- RLL spiculated mass concerning for malignancy- plans for possible robotic bronchoscopy on 04/30
Discussed patient care with: Cardiology, Nursing, Respiratory Therapy, Pharmacy and Care Team
Subjective
Procedure
- s/p Left trans femoral TAVR with a 29 mm Conley TAVR valve on 04/26/24
-
Date of Service: May 01, 2024
Pt c/o mild incisional pain, otherwise feels well
Objective Data
-
Lab Results
05/01/24 03:48
05/01/24 03:48
PT 16.2 Sec (11.4-14.6) H 05/01/24 03:48
PT Cancelled 05/01/24 03:48
INR 1.32 05/01/24 03:48
INR Cancelled 05/01/24 03:48
APTT 104.9 Sec (23.4-35.0) H 05/01/24 03:48
Vital Signs
Vital Signs
Temp Pulse Resp BP Pulse Ox
97.8 F 63 18 128/66 93
05/01/24 03:45 05/01/24 03:45 05/01/24 03:45 05/01/24 03:45 05/01/24 03:45
CT Intake/Output/Weight
04/30/24 04/30/24 05/01/24
06:59 18:59 06:59
Intake Total 200 / 680 410 / 650 240 / 650
Balance 200 / 680 410 / 650 240 / 650
SaO2: 93 (RA)
Physical Exam
-
General: Awake, Oriented and AOx3
Cardiovascular: Regular rate & rhythm and No Murmurs
Respiratory: Decreased Breath Sounds
Incision: Clean, Dry, Intact and Dressing Intact
Extremities: Other (+trace edema)
Data Reviewed
-
Lab Results: Results Reviewed
Medications: Active Meds Reviewed
CT Scan: Report Reviewed and Image Reviewed
ECG: Report Reviewed and Image Reviewed
[2024-05-01] MEDS: CORGARD 80 MG PO ×2 (07:46→19:45)
[2024-05-01] MEDS: ZESTRIL 5 MG PO (07:47)
[2024-05-01] MEDS: FEOSOL 325 MG PO (07:47)
[2024-05-01] MEDS: OCUVITE SOFTGEL 1 CAP PO (07:47)
[2024-05-01] MEDS: VITAMIN C 500 MG PO (07:47)
[2024-05-01] MEDS: LASIX 40 MG PO (07:52)
[2024-05-01] MEDS: LANOXIN 125 MCG PO (07:54)
--- NOTE | 2024-05-01 08:11 | W.PN.PUL3 ---
Today's Communication / Plan
-
Await bronchoscopy results
Cultures pending as well
Anticoagulation per CT surgery
Would recommend outpatient PET scan depending on biopsy results
Follow-up information left in chart
We will sign off. Please call with questions
Assessment
-
89-year-old former tobacco smoker with a past medical history of CAD s/p CABG, A-fib, + mechanical MVR on Coumadin presents with elective TAVR. Patient recently hospitalized from 02/26 - 03/02/2024 due to acute decompensated heart failure due to
underlying severe aortic stenosis. Patient had echo on 02/27/2024 showing reduced LV systolic function with EF 35-40%, severe aortic stenosis with a mean gradient of 23 mmHg. At that time there was severe pulmonary hypertension with PASP of 75-80
mmHg. Patient recently had left heart catheterization on 03/02/2024 showing severely elevated filling pressures with PCWP of 30 mmHg, with low CI at 1.2, normal PVR at 1.19 Ware units, and mild pulmonary hypertension with mPAP of 34mmHg with RVSP
of 63mmHg. Patient was diuresed and discharged on 03/02/2024. While awaiting TAVR, he obtained a CT TAVR on 03/14/2024 showing a masslike opacity/consolidation in the RLL measuring up to 6 cm, as well as bronchial wall thickening with patchy
infiltrate seen in the LLL, concerning for bilateral lower lobe pneumonia. There is also mediastinal + hilar lymphadenopathy. Repeat CXR today also shows persistent focal parenchymal opacity in the RLL. Pulmonary service now consulted for
additional management/recommendations.
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
Impression:
#Abnormal CT TAVR with RLL masslike opacity with LLL bronchial wall thickening/infiltrate, concerning for primary bronchogenic lung cancer; unlikely multifocal pneumonia given he lacks clinical symptoms for infection
#Recent sputum culture growing MSSA on 03/16/2024 Tx with Augmentin x 7 days
#Severe aortic stenosis s/p TAVR on 04/26/2024
#Chronic systolic heart failure/chronic HFrEF
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
#CAD s/p CABG
#Acute kidney injury (Baseline Cr: 1.1) - LIZZ now resolved
#Former tobacco use disorder
#Permanent A-fib
Plan:
Patient is not on supplemental oxygen and saturating 96-97% on room air. No leukocytosis and afebrile; doubtful patient any has a persistent pneumonia however RLL persistent opacification is concerning for neoplasm
Repeat CT chest done on 04/24/2024 shows persistent RLL spiculated mass measuring 4.7 x 2.8 x 7cm - this is concerning for primary bronchogenic carcinoma.
Patient is status post robotic bronchoscopy 04/30/2024
Reviewed findings at length with family at bedside
Multiple biopsies obtained (16), walking superior down to inferior lateral mass
Reviewed with patient and family that if findings are negative, would recommend outpatient PET scan and follow-up as indicated
Suspect he will need repeat imaging sometime in the next 6 to 12 weeks depending on workup
Recommend follow-up with pulmonary in 6 weeks with a PET scan
Continue with anticoagulation per CT surgery
4R lymph node was identified, but vascularity noted with fatty hilum, therefore did not biopsy given benign appearance
Reviewed with patient depending on biopsy findings, PET scan, may require repeat tissue sampling
All questions answered. Reviewed with family and primary service
We will sign off. Please call with questions
Diagnostic Data
CXR 04-24-2024: Focal parenchymal opacity within the right lower lobe. This could represent residual parenchymal disease from previous pneumonia. However, neoplasia/carcinoma is also possible. As warranted, consider further evaluation with a CT of the
chest. Cardiomegaly with no evidence for pulmonary edema pattern.
CT Chest w/o Contrast 04-24-2024: There is a confluent mass-like opacity within the right lower lobe. There has been significant interval improvement in surrounding parenchymal airspace opacities in the right lower lobe since previous examination,
suggesting interval improvement in pneumonia.
The persistent confluent opacity within the right lower lobe could represent neoplasia/carcinoma, with differential consideration of residual organizing pneumonia. For further evaluation, consideration for biopsy. Alternatively, PET/CT scan could be
performed. Also, close CT follow-up could be considered.
1.4 cm precarinal lymph node, stable, with probable fatty central hilum, most likely a reactive inflammatory lymph node.
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
CT TAVR 03-14-2024: Findings most consistent with bibasilar pneumonia, right greater than left. Possibly the basis of aspiration, with variable intraluminal fluid in the trachea and bronchi. Bronchial wall thickening. A neoplastic process is felt to
be less likely, though not entirely excluded, given the more rounded masslike opacity/consolidation in the right lower lobe. There is also mediastinal adenopathy. Short-term follow-up after conservative therapy would be advised to assess for
resolution.
Renal cortical inhomogeneity and subtle irregularity of the peripheral cortical margin, left greater than right, as described. Possibly reflecting cortical scarring. Cannot exclude pyelonephritis in the proper clinical setting. More localized subtle
rounded diminished attenuation on the left. Cannot entirely exclude localized mass. Initial step for further evaluation recommended with ultrasound. In addition, correlate with urinalysis.
Right renal exophytic parapelvic cyst measuring 2.8 cm and posterior medial right exophytic cyst measuring 2.9 cm.
Diverticulosis without acute diverticulitis.
Total time spent today was 35 minutes for this encounter. Time includes reviewing laboratory test/imaging results, reviewing pertinent medical records, obtaining and reviewing medical history, performing an appropriate exam, ordering medications,
tests and procedures. Time also includes documentation of this encounter, coordinating patient care and communicating with other healthcare professionals. Total time does not include separately billed tests performed on this date of service.
Subjective Data
-
Date of Service:
Date of Service: May 01, 2024
Chief Complaint: Pulmonary Follow Up
Subjective:
Patient is feeling well. Denies shortness of breath, chest pain, cough, hemoptysis. Appears to be in good spirits. Family at bedside
Objective Data
Data Reviewed
Vital Signs / I&O / Oxygen:
Vital Signs
Temp Pulse Resp BP Pulse Ox
97.8 F 60 16 138/67 98
05/01/24 03:45 05/01/24 07:56 05/01/24 07:56 05/01/24 07:56 05/01/24 07:56
Intake and Output
04/30/24 05/01/24 05/02/24
06:59 06:59 06:59
Intake Total 680 / 680 650 / 650
Balance 680 / 680 650 / 650
SaO2 98
Physical Exam
General: Comfortable
HEENT: Normocephalic and Anicteric
Cardiovascular: S1-S2, Regular Rhythm, Murmur (n) and Peripheral Edema (negative)
Respiratory: Clear, Wheeze (negative), Rhonchi (negative) and Non-Labored Respirations
GI: Soft, Non Distended, Non Tender and Normal Bowel Sounds
Neurology: Awake, Alert and Tremors (negative)
Skin: Jaundice (negative) and Rash (n)
Labs/Micro/Reports
Lab Data
05/01/24 03:48
05/01/24 03:48
Laboratory Results
04/30/24 05/01/24 05/01/24
21:06 03:48 03:48
PT 16.2 H Cancelled
INR 1.32
APTT 68.7 H
05/01/24
03:48
PT
INR Cancelled
APTT 104.9 H
Microbiology
04/30/24 09:24 Bronch Right Lower Lobe Gram Stain - Preliminary
04/30/24 09:24 Bronchoalveolar Lavage Fungal Culture - Preliminary
Culture in progress.
Positive cultures are reported as soon as detected.
Final report to follow in four to five weeks.
--- NOTE | 2024-05-01 08:54 | W.PN.CD ---
Today's Communication / Plan
-
Creatinine up to 1.5. Hold additional dose of Lasix.
-Check digoxin level in a.m.
-Hold digoxin in morning until we see a trend of creatinine
Anemia. Patient had anemia prior to admission but hemoglobin running lower. Continue to monitor postprocedure. Will check iron studies B12 and folate.
Continue to bridge heparin to Coumadin monitor INR
Impression / Plan
-
Poultry Farm Supervisor: Dr. Morrissey
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
presents prior to TAVR for heparin bridge and cardiac optimization. Patient had prior treatment of PNA and was noted to have residual consolidation vs mass and is being evaluated by pulmonary this admit.
s/p TAVR (emergent 29 Conley SALO S3) on 04/26/2024
-Doing well postprocedure.
- femoral sites appear fine.
RLL mass
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
- bronchoscopy and biopsy performed 04/30/2024.
-Await results of pathology. Additional follow-up directed by pulmonary
HFrEF, NICM (LVEF 35-40%)
-proBNP down from prior admission and CXR did not show congestion so he did not receive diuretic pre-TAVR
-GDMT as tolerated
-ACEI/ARB: Lisinopril 5 mg
-SGLT2: Jardiance is affordable, can consider
-Beta-aldo: Nadolol
-MRA: He had hyperkalemia when he presented to the ER 02/27/2024
-Although weight appears up slightly patient says his breathing feels good ambulating without difficulty. Appears euvolemic on exam. Creatinine is actually up to 1.5. Will hold additional diuretic and monitor renal function.
Mitral valve replacement/mechanical valve (35-mm [place])
-Bridging heparin to Coumadin. Daily dosing
- (home dose apparently 2.5 a/w 1.25)
Permanent atrial fibrillation
-Continue rate control with nadolol and digoxin
-Oral Anticoagulation: He is on warfarin in the outpatient setting (mechanical mitral valve), bridging with heparin drip as above.
-[id number]: score at least 4 (Heart failure, age 75 or more, Vascular disease)
Coronary artery disease
-CABG 2008 (SVG-OM)
-Remains stable without chest pain.
-On aspirin and warfarin in the outpatient setting
Creatinine up to 1.5. Hold additional dose of Lasix.
-Check digoxin level in a.m.
-Hold digoxin in morning until we see a trend of creatinine
SSS s/p Medtronic PPM, followed in outpatient device clinic, stable last interrogation, RELIABILITY MANAGER 93%, longevity 8 years 10 months
Former smoker, continued cessation recommended
DATA:
Chest CT 04/24/24
IMPRESSION:
There is a confluent mass-like opacity within the right lower lobe. There has been significant interval improvement in surrounding parenchymal airspace opacities in the right lower lobe since previous examination, suggesting interval improvement in
pneumonia.
The persistent confluent opacity within the right lower lobe could represent neoplasia/carcinoma, with differential consideration of residual organizing pneumonia. For further evaluation, consideration for biopsy. Alternatively, PET/CT scan could be
performed. Also, close CT follow-up could be considered.
1.4 cm precarinal lymph node, stable, with probable fatty central hilum, most likely a reactive inflammatory lymph node.
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
Cardiac catheterization, 03/02/2024:
1. Right dominant circulation with a 70+% stenosis of the lower branch of
OM1 status post single-vessel bypass with a patent SVG to OM1 with no evidence of degeneration.
2. Severely elevated filling pressures (PCWP = 30 mmHg at 65.3 kg).
3. Status post mechanical mitral valve replacement with normal leaflet excursion.
4. Severe aortic valve stenosis by echocardiography.
5. 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
6. 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
Echocardiogram, 02/27/2024:
Moderately reduced left ventricular systolic function.
Left ventricular ejection fraction is 35-40%.
Mechanical mitral valve with a mean gradient of 4 mmHg and no mitral
regurgitation
Severe aortic stenosis. Peak gradient 42 mmHg. Mean gradient 23 mmHg.
Dimensionless index 0.2
Severe pulmonary hypertension with estimated PA pressure 75 to 80 mmHg
When compared with the previous report 09/26/2023 estimated EF is reduced.
Previously 40 to 45%. Estimated PA pressure is increased. Previously 64 mmHg.
Physical Exam
Vital Signs/Labs
Vital Signs
Temp Pulse Resp BP Pulse Ox
97.8 F 60 16 138/67 98
05/01/24 03:45 05/01/24 07:56 05/01/24 07:56 05/01/24 07:56 05/01/24 07:56
04/30/24 05/01/24 05/02/24
06:59 06:59 06:59
Actual Weight 66.3 kg 67.3 kg
05/01/24 03:48
05/01/24 03:48
PT 16.2 Sec (11.4-14.6) H 05/01/24 03:48
PT Cancelled 05/01/24 03:48
INR 1.32 05/01/24 03:48
INR Cancelled 05/01/24 03:48
APTT 104.9 Sec (23.4-35.0) H 05/01/24 03:48
04/24/24
10:30
[id number]-A-[id number] Pept 3200
Physical Exam
Constitutional: No acute distress
Cardiovascular: Rhythm/rate is irregular and Other (Mechanical S1)
Respiratory: Wheeze Absent and Rhonchi Absent
GI: Soft, Non tender and Normal bowel sounds
Neuro/Psych: Alert
Other: Other (Catheterization site is fine)
Data Reviewed
-
Date of Service: May 01, 2024
Medical Decision Making: Reviewed Test Results
EKG: Report Reviewed by me
Medical Tests (PFT, Pathology etc): Report Reviewed by me
Labs: Labs Reviewed by me
--- NOTE | 2024-05-01 09:46 | PTCARENOTE ---
received this very kind patient this am. bilat. groin intact, although ecchymotic, no hematomas, distal pulses by Doppler only. IV heparin remains on, infusing at 800units/hr, Plt count 101, CVPA is aware , has been low for days. monitor shows
Vpaced, VSS.
[2024-05-01] MEDS: HEPARIN 25000 UNITS/250 ML IV (10:31)
--- NOTE | 2024-05-01 10:34 | CM ---
Chart reviewed. Patient is independent of ADLS, lives with his brother and KELVIN in a 3 STH, 1 TYSON, 0 DME. Patient's INR 1.32, waiting for a therapeutic INR. Plan is for the patient to return home with CT Transitional RN. CM to follow
[2024-05-01 10:47] LABS: Iron 48 ug/dl (49-181)
[2024-05-01 10:56] LABS: Percent Saturation 18 % (20-50); Total Iron Binding Capacity 253 ug/dl (261-462)
[2024-05-01 11:14] LABS: APTT 86.6 Sec (23.4-35.0)
[2024-05-01 12:04] LABS: Folate > 20.0 ng/ml (2.76-20); Vitamin B12 > 1000 pg/ml (239-931)
[2024-05-01] MEDS: COUMADIN 4 MG PO (17:32)
[2024-05-01] MEDS: LIPITOR 10 MG PO (17:32)
[2024-05-01] MEDS: COUMADIN 2.5 MG PO (19:45)
--- NOTE | 2024-05-01 20:44 | PTCARENOTE ---
Pt. received at change of shift. Pt. seen and assessed. Pt. AOx3, no complaints of pain. VS WNL. Continuing to monitor the pt.
[2024-05-02] VITALS (9 sets, daily range): BP systolic 81–122; BP diastolic 51–67; BMI 23.2
--- NOTE | 2024-05-02 00:09 | W.PN.CT ---
Today's Communication / Plan
-
-pod #6 post TAVR
-no issues overnight
-hypotensive with elevated Cr - holding Lasix, Lisinopril, digoxin
-s/p bronchoscopy/biopsy of RLL on 04/30. F/u pathology/cx. Pulmonary recommends outpatient PET scan depending on biopsy results
-Heparin to Coumadin bridge for mechanical valve/chronic a-fib. Got 4 mg of Coumadin on 04/30 and 6.5 mg on 05/01. INR 1.46 and PTT 58.6 (Heparin rate increased from 800 to 1000 units/hr)
-follow Cr- 1.3 today (1.5 on 05/01, 1.2 on 04/30, and 1.1 on 04/29)
-follow platelets- stable 102K today (101 on 05/01, 94 on 04/30, 84 on 04/28)
-echo 04/27 showed a well seated TAVR with PG/MG of 14/8 mmHg, no AI, LVEF 55-60%
-encourage IS, OOB, ambulate
Assessment / Plan
-
- Severe symptomatic - s/p Left trans femoral TAVR with a 29 mm Conley TAVR valve on 04/26/24, pod #6
- Intraop TTE: Preop LVEF was 35% and was 40% following TAVR without inotropic support, no regional wma or dyskinesia. The aortic valve was well seated without detectable PVL and mean gradient of 2mmHg
- LVEDP pre TAVR was 20mmHg
- Hypertension
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
- History of open heart surgery with mitral valve replacement, mechanical valve- Heparin to Coumadin bridge post TAVR
- Permanent atrial fibrillation with permanent pacemaker implanted
- Coronary artery disease -status post CABG
- Severe pulmonary hypertension
- Recent episode of pneumonia
- RLL spiculated mass concerning for malignancy- s/p robotic bronchoscopy on 04/30
- Iron deficiency anemia- starte on iron
- LIZZ
Discussed patient care with: Nursing and Care Team
Subjective
Procedure
- s/p Left trans femoral TAVR with a 29 mm Conley TAVR valve on 04/26/24
-
Date of Service: May 02, 2024
Objective Data
-
PT 16.2 Sec (11.4-14.6) H 05/01/24 03:48
PT Cancelled 05/01/24 03:48
INR 1.32 05/01/24 03:48
INR Cancelled 05/01/24 03:48
APTT 86.6 Sec (23.4-35.0) H 05/01/24 10:42
Vital Signs
Vital Signs
Temp Pulse Resp BP Pulse Ox
97.9 F 66 16 96/50 94
05/01/24 22:58 05/01/24 22:57 05/01/24 22:58 05/01/24 22:57 05/01/24 11:37
CT Intake/Output/Weight
05/01/24 05/01/24 05/02/24
06:59 18:59 06:59
Intake Total 240 / 650 96 / 196 100 / 196
Output Total 600 / 600
Balance 240 / 650 -504 / -404 100 / -404
SaO2: 94
Physical Exam
-
General: Awake, Oriented and AOx3
Cardiovascular: Regular rate & rhythm and No Murmurs
Respiratory: Decreased Breath Sounds
Incision: Clean, Dry, Intact and Dressing Intact
Extremities: Other (+trace edema)
Data Reviewed
-
Lab Results: Results Reviewed
Medications: Active Meds Reviewed
Chest X-Ray: Report Reviewed and Image Reviewed
ECG: Report Reviewed and Image Reviewed
--- NOTE | 2024-05-02 02:56 | DOWNTIME ---
There was a FinalCAD Client Crayon Grader Downtime on 05/02/2024 from 0100 to 05/02/2024 at 0255. Downtime documentation of patient's care, including medication administrations, has been reconciled in the electronic record per guidelines. Refer to the
patient's paper chart under the miscellaneous tab to see printed paper medication records and downtime forms.
[2024-05-02 05:15] LABS: Hemoglobin 8.8 g/dL (13.0-18.0); Mean Corp Hgb Conc. 32.6 g/dL (33.0-37.0); Mean Corpuscular Hgb 29.9 pg (27.0-31.0); Mean Corpuscular Volume 91.8 fL (80.0-94.0); Mean Platelet Volume 10.7 fL (7.4-10.4); Platelet Count 102 10^3/uL (130-400); Red Blood Cell Count 2.94 10^6/uL (4.70-6.10); Red Cell Dist. Width 15.5 % (11.5-14.5); White Blood Cell Count 5.6 10^3/uL (4.8-10.8)
[2024-05-02 05:26] LABS: INR 1.46; PT 17.5 Sec (11.4-14.6)
[2024-05-02 05:28] LABS: APTT 58.6 Sec (23.4-35.0)
[2024-05-02 05:50] LABS: Albumin 3.4 g/dl (3.5-5.0); Blood Urea Nitrogen 40 mg/dl (9-20); Calcium 9.5 mg/dl (8.4-10.2); Carbon Dioxide 27 mmol/L (22-30); Chloride 103 mmol/L (98-107); Digoxin 0.7 ng/ml (0.8-2.0); Estimated Creatinine Clearance 37 ml/min; Glucose 91 mg/dl (70-99); Phosphorus 3.6 mg/dl (2.5-4.5); Potassium 4.5 mmol/L (3.5-5.1); Sodium 136 mmol/L (135-145); eGFR 52.84
[2024-05-02] MEDS: FEOSOL 325 MG PO (08:21)
[2024-05-02] MEDS: CORGARD 80 MG PO ×2 (08:21→20:26)
[2024-05-02] MEDS: VITAMIN C 500 MG PO (08:21)
[2024-05-02] MEDS: OCUVITE SOFTGEL 1 CAP PO (08:21)
--- NOTE | 2024-05-02 08:27 | PTCARENOTE ---
Assumed care of pt from prev nsg shift AAOx3 w/no c/o CP or SOB. Pt w/VS stable, w/HR in the 60's, BP 118/67. Heparin IV drip infusing at ordered rate through patent IV line. Next PTT due at 1150 this AM. Plan of care discussed & pt w/no questions
at this time. Pt w/call brown within reach & no addtl needs at this time.
--- NOTE | 2024-05-02 09:37 | W.PN.CD ---
Today's Communication / Plan
-
Lower BP yesterday. may hav been related to volume status and med
lisinopril an dlasix on hold. BP adn creatinine apper improved.
F/U echo
resume Digoxin
If BP s remain stable and INR slow to trend up then could consider transitioning bridge to lovenox tomorrow.
Impression / Plan
-
Mechanical Technician: Dr. Morrissey
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
presents prior to TAVR for heparin bridge and cardiac optimization. Patient had prior treatment of PNA and was noted to have residual consolidation vs mass and is being evaluated by pulmonary this admit.
s/p TAVR (emergent 29 Conley SALO S3) on 04/26/2024
-Doing well postprocedure.
- femoral sites appear fine.
RLL mass
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
- bronchoscopy and biopsy performed 04/30/2024.
-Await results of pathology. Additional follow-up directed by pulmonary
HFrEF, NICM (LVEF 35-40%)
-proBNP down from prior admission and CXR did not show congestion so he did not receive diuretic pre-TAVR
-GDMT as tolerated
-ACEI/ARB: Lisinopril 5 mg
-SGLT2: Jardiance is affordable, can consider
-Beta-aldo: Nadolol
-MRA: He had hyperkalemia when he presented to the ER 02/27/2024
-appears euvolemic on exam. Lower BP and creatinine 1.5. lisinoprila nd diuretic on hold
Mitral valve replacement/mechanical valve (35-mm [place])
-Bridging heparin to Coumadin. Daily dosing
- (home dose apparently 2.5 a/w 1.25)
Permanent atrial fibrillation
-Continue rate control with nadolol and digoxin
-Oral Anticoagulation: He is on warfarin in the outpatient setting (mechanical mitral valve), bridging with heparin drip as above.
-[id number]: score at least 4 (Heart failure, age 75 or more, Vascular disease)
Coronary artery disease
-CABG 2008 (SVG-OM)
-Remains stable without chest pain.
-On aspirin and warfarin in the outpatient setting
Creatinine up to 1.5. Lasix on hol dnad now improving cr 1.3.
-Check digoxin level in a.m.
-Hold digoxin in morning until we see a trend of creatinine
SSS s/p Medtronic PPM, followed in outpatient device clinic, stable last interrogation, [employer] 93%, longevity 8 years 10 months
Former smoker, continued cessation recommended
DATA:
Chest CT 04/24/24
IMPRESSION:
There is a confluent mass-like opacity within the right lower lobe. There has been significant interval improvement in surrounding parenchymal airspace opacities in the right lower lobe since previous examination, suggesting interval improvement in
pneumonia.
The persistent confluent opacity within the right lower lobe could represent neoplasia/carcinoma, with differential consideration of residual organizing pneumonia. For further evaluation, consideration for biopsy. Alternatively, PET/CT scan could be
performed. Also, close CT follow-up could be considered.
1.4 cm precarinal lymph node, stable, with probable fatty central hilum, most likely a reactive inflammatory lymph node.
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
Cardiac catheterization, 03/02/2024:
1. Right dominant circulation with a 70+% stenosis of the lower branch of
OM1 status post single-vessel bypass with a patent SVG to OM1 with no evidence of degeneration.
2. Severely elevated filling pressures (PCWP = 30 mmHg at 65.3 kg).
3. Status post mechanical mitral valve replacement with normal leaflet excursion.
4. Severe aortic valve stenosis by echocardiography.
5. 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
6. 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
Echocardiogram, 02/27/2024:
Moderately reduced left ventricular systolic function.
Left ventricular ejection fraction is 35-40%.
Mechanical mitral valve with a mean gradient of 4 mmHg and no mitral
regurgitation
Severe aortic stenosis. Peak gradient 42 mmHg. Mean gradient 23 mmHg.
Dimensionless index 0.2
Severe pulmonary hypertension with estimated PA pressure 75 to 80 mmHg
When compared with the previous report 09/26/2023 estimated EF is reduced.
Previously 40 to 45%. Estimated PA pressure is increased. Previously 64 mmHg.
Physical Exam
Vital Signs/Labs
Vital Signs
Temp Pulse Resp BP Pulse Ox
97.7 F 69 18 118/67 94
05/02/24 06:55 05/02/24 07:00 05/02/24 06:55 05/02/24 06:58 05/02/24 06:55
05/01/24 05/02/24 05/03/24
06:59 06:59 06:59
Actual Weight 67.3 kg 67 kg
05/02/24 04:37
05/02/24 04:37
PT 17.5 Sec (11.4-14.6) H 05/02/24 04:37
INR 1.46 05/02/24 04:37
APTT 58.6 Sec (23.4-35.0) H 05/02/24 04:37
Digoxin 0.7 ng/ml (0.8-2.0) L 05/02/24 04:37
04/24/24
10:30
Mix-E-Lkzrvyvkjiy Pept 3200
Physical Exam
Constitutional: No acute distress
Cardiovascular: Rhythm & rate is regular and Other ([facility] S1)
Respiratory: Respiratory effort normal
GI: Soft
Neuro/Psych: Alert
Data Reviewed
-
Date of Service: May 02, 2024
Medical Decision Making: Reviewed Test Results
Echo: Report Reviewed by me and Ordered by me
Medical Tests (PFT, Pathology etc): Report Reviewed by me
Labs: Labs Reviewed by me
[2024-05-02 12:39] LABS: APTT 117.9 Sec (23.4-35.0)
--- NOTE | 2024-05-02 13:26 | CM ---
Chart reviewed. Patient is independent of ADLS, lives with brother and KELVIN in a [address], [address], 0 [address]. Patient's INR 1.46. Plan is for the patient to return to his brother and KELVIN home with CT Transitional RN when medically stable. [address] [place] [address]
[address] [facility] to follow
[2024-05-02] MEDS: LANOXIN 125 MCG PO (15:47)
[2024-05-02] MEDS: LIPITOR 10 MG PO (18:06)
[2024-05-02] MEDS: COUMADIN 2.5 MG PO (18:06)
[2024-05-02] MEDS: HEPARIN 25000 UNITS/250 ML IV (18:06)
[2024-05-02 19:39] LABS: APTT 118.8 Sec (23.4-35.0)
[2024-05-03] VITALS (9 sets, daily range): BP systolic 99–161; BP diastolic 61–92; BMI 23.2
[2024-05-03 02:26] LABS: Hematocrit 26.1 % (39.0-52.0); Hemoglobin 8.8 g/dL (13.0-18.0); Mean Corp Hgb Conc. 33.7 g/dL (33.0-37.0); Mean Corpuscular Hgb 29.6 pg (27.0-31.0); Mean Corpuscular Volume 87.9 fL (80.0-94.0); Platelet Count 102 10^3/uL (130-400); Red Blood Cell Count 2.97 10^6/uL (4.70-6.10); Red Cell Dist. Width 15.6 % (11.5-14.5); White Blood Cell Count 5.5 10^3/uL (4.8-10.8)
[2024-05-03 02:36] LABS: INR 1.71; PT 20.2 Sec (11.4-14.6)
[2024-05-03 02:41] LABS: Blood Urea Nitrogen 36 mg/dl (9-20); Calcium 9.5 mg/dl (8.4-10.2); Carbon Dioxide 26 mmol/L (22-30); Chloride 104 mmol/L (98-107); Estimated Creatinine Clearance 40 ml/min; Glucose 99 mg/dl (70-99); Sodium 138 mmol/L (135-145); eGFR 58.17
--- NOTE | 2024-05-03 03:21 | W.PN.CT ---
Today's Communication / Plan
-
-pod #7 post TAVR
-no issues overnight
-Cr improving - 1.2 today. Holding Lasix, Lisinopril.
-s/p bronchoscopy/biopsy of RLL on 04/30. F/u pathology/cx. Pulmonary recommends outpatient PET scan depending on biopsy results
-Heparin to Coumadin bridge for mechanical valve/chronic a-fib. Got 4 mg of Coumadin on 04/30, 6.5 mg on 05/01, and 4 mg on 05/02. INR 1.71 and PTT 115.0. Heparin @ 700 units/hr.
-follow Cr- improving
-follow platelets- stable 102K today
-echo 04/27 showed a well seated TAVR with PG/MG of 14/8 mmHg, no AI, LVEF 55-60%
-encourage IS, OOB, ambulate
Assessment / Plan
-
- Severe symptomatic - s/p Left trans femoral TAVR with a 29 mm Conley TAVR valve on 04/26/24, pod #7
- Intraop TTE: Preop LVEF was 35% and was 40% following TAVR without inotropic support, no regional wma or dyskinesia. The aortic valve was well seated without detectable PVL and mean gradient of 2mmHg
- LVEDP pre TAVR was 20mmHg
- Hypertension
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
- History of open heart surgery with mitral valve replacement, mechanical valve- Heparin to Coumadin bridge post TAVR
- Permanent atrial fibrillation with permanent pacemaker implanted
- Coronary artery disease -status post CABG
- Severe pulmonary hypertension
- Recent episode of pneumonia
- RLL spiculated mass concerning for malignancy- s/p robotic bronchoscopy on 04/30
- Iron deficiency anemia- starte on iron
- LIZZ
Discussed patient care with: Nursing and Care Team
Subjective
Procedure
- s/p Left trans femoral TAVR with a 29 mm Conley TAVR valve on 04/26/24
-
Date of Service: May 03, 2024
Objective Data
-
Lab Results
05/03/24 02:16
05/03/24 02:16
PT 20.2 Sec (11.4-14.6) H 05/03/24 02:16
INR 1.71 05/03/24 02:16
APTT 115.0 Sec (23.4-35.0) H 05/03/24 02:16
APTT Cancelled 05/03/24 02:16
Vital Signs
Vital Signs
Temp Pulse Resp BP Pulse Ox
98.4 F 64 16 117/70 95
05/03/24 02:17 05/03/24 02:23 05/03/24 02:17 05/03/24 02:23 05/03/24 02:17
CT Intake/Output/Weight
05/02/24 05/02/24 05/03/24
06:59 18:59 06:59
Intake Total 100 / 196 360 / 360
Balance 100 / -404 360 / 360
SaO2: 95
Physical Exam
-
General: Awake and AOx3
Cardiovascular: Regular rate & rhythm (a-fib with v-pacing)
Respiratory: Decreased Breath Sounds
Incision: Clean (b/l groins are cdi, bruised L>R)
Extremities: No Edema
Data Reviewed
-
Lab Results: Results Reviewed
Medications: Active Meds Reviewed
Chest X-Ray: Report Reviewed and Image Reviewed
ECG: Report Reviewed and Image Reviewed
--- NOTE | 2024-05-03 05:02 | PTCARENOTE ---
Assumed care of patient at change of shift. VSS, VPaced on monitor. Patient denies chest pain or SOB. Heparin drip currently infusing at 7ml/hr. B/L groin sites open to air with ecchymosis noted. Patient ambulating independently without
difficulty. Verbalizes understanding of plan of care. Call brown within reach.
[2024-05-03] MEDS: OCUVITE SOFTGEL 1 CAP PO (08:18)
[2024-05-03] MEDS: FEOSOL 325 MG PO (08:18)
[2024-05-03] MEDS: VITAMIN C 500 MG PO (08:18)
[2024-05-03] MEDS: CORGARD 80 MG PO ×2 (08:19→20:13)
--- NOTE | 2024-05-03 08:20 | W.PN.UPDATE ---
Update Note
Progress Note Update
Patient upset that INR not therapeutic (INR 1.7) and that he will miss his grandsons wedding tomorrow. I again discussed option of Lovenox as a means to bridge to Coumadin with the advantage of ability to discharge patient today patient refused
this option stating he does not want to stick himself and cause all this bruising. Patient is upset that 'we cannot get this right.' I explained the difficulty in achieving therapeutic INR after having received preoperative vitamin K and fresh
frozen plasma.
[2024-05-03] MEDS: LANOXIN 125 MCG PO (08:21)
--- NOTE | 2024-05-03 08:42 | W.PN.CD ---
Today's Communication / Plan
-
-Continue bridging with heparin drip to Coumadin; INR today pending (goal INR 2.5-3.5).
Impression / Plan
-
Certified Midwife: Dr. Morrissey
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
presents prior to TAVR for heparin bridge and cardiac optimization. Patient had prior treatment of PNA and was noted to have residual consolidation vs mass and is being evaluated by pulmonary this admit.
s/p TAVR (emergent 29 Conley SALO S3) on 04/26/2024
-Remains stable post-procedure.
RLL mass
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
-Bronchoscopy and biopsy performed 04/30/2024.
-Awaiting results of pathology; additional follow-up directed by Pulmonary.
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
-proBNP down from prior admission and CXR did not show congestion so he did not receive diuretic pre-TAVR
-Continue GDMT as tolerated
-ACEI/ARB: Lisinopril 5 mg
-SGLT2: Jardiance is affordable, can consider
-Beta-aldo: Nadolol (was on this as outpatient; likely not able to tolerate metoprolol succinate, carvedilol, or bisoprolol).
-MRA: He had hyperkalemia when he presented to the ER 02/27/2024
-Remains euvolemic on exam; diuretic being held due to renal sufficiency.
Mitral valve replacement/mechanical valve (35-mm [place])
-Continue bridging with heparin drip to Coumadin; INR today pending (goal INR 2.5-3.5).
- (home dose apparently 2.5 a/w 1.25)
Permanent atrial fibrillation
-Continue nadolol and digoxin
-Oral Anticoagulation: He is on warfarin in the outpatient setting (mechanical mitral valve), bridging with heparin drip as above.
-[id number]: score at least 4 (Heart failure, age 75 or more, Vascular disease)
Coronary artery disease
-CABG 2008 (SVG-OM)
-Remains stable without chest pain.
-On aspirin and warfarin in the outpatient setting
Creatinine up to 1.5. Lasix on hol dnad now improving cr 1.3.
-Check digoxin level in a.m.
-Hold digoxin in morning until we see a trend of creatinine
SSS s/p Medtronic PPM, followed in outpatient device clinic, stable last interrogation, [employer] 93%, longevity 8 years 10 months
Former smoker, continued cessation recommended
DATA:
Chest CT 04/24/24
IMPRESSION:
There is a confluent mass-like opacity within the right lower lobe. There has been significant interval improvement in surrounding parenchymal airspace opacities in the right lower lobe since previous examination, suggesting interval improvement in
pneumonia.
The persistent confluent opacity within the right lower lobe could represent neoplasia/carcinoma, with differential consideration of residual organizing pneumonia. For further evaluation, consideration for biopsy. Alternatively, PET/CT scan could be
performed. Also, close CT follow-up could be considered.
1.4 cm precarinal lymph node, stable, with probable fatty central hilum, most likely a reactive inflammatory lymph node.
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
Cardiac catheterization, 03/02/2024:
1. Right dominant circulation with a 70+% stenosis of the lower branch of
OM1 status post single-vessel bypass with a patent SVG to OM1 with no evidence of degeneration.
2. Severely elevated filling pressures (PCWP = 30 mmHg at 65.3 kg).
3. Status post mechanical mitral valve replacement with normal leaflet excursion.
4. Severe aortic valve stenosis by echocardiography.
5. 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
6. 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
Echocardiogram, 02/27/2024:
Moderately reduced left ventricular systolic function.
Left ventricular ejection fraction is 35-40%.
Mechanical mitral valve with a mean gradient of 4 mmHg and no mitral
regurgitation
Severe aortic stenosis. Peak gradient 42 mmHg. Mean gradient 23 mmHg.
Dimensionless index 0.2
Severe pulmonary hypertension with estimated PA pressure 75 to 80 mmHg
When compared with the previous report 09/26/2023 estimated EF is reduced.
Previously 40 to 45%. Estimated PA pressure is increased. Previously 64 mmHg.
Physical Exam
Vital Signs/Labs
Vital Signs
Temp Pulse Resp BP Pulse Ox
98.1 F 60 18 149/68 95
05/03/24 07:10 05/03/24 08:21 05/03/24 07:10 05/03/24 08:19 05/03/24 07:10
05/02/24 05/03/24 05/04/24
06:59 06:59 06:59
Actual Weight 67 kg
05/03/24 02:16
05/03/24 02:16
PT 20.2 Sec (11.4-14.6) H 05/03/24 02:16
INR 1.71 05/03/24 02:16
APTT 115.0 Sec (23.4-35.0) H 05/03/24 02:16
APTT Cancelled 05/03/24 02:16
Digoxin 0.7 ng/ml (0.8-2.0) L 05/02/24 04:37
04/24/24
10:30
Wab-H-Bcnowqvfuti Pept 3200
Physical Exam
Constitutional: No acute distress and Comfortable
EENT: Anicteric and Moist mucous membranes
Cardiovascular: Rhythm & rate is regular, Pedal edema present (Trace), Systolic murmur present (2/6) and S1S2 is normal
Respiratory: Respiratory effort normal and Lungs clear to auscul.
GI: Soft
Neuro/Psych: AO x 3
Other: Skin (Warm, dry, intact)
Data Reviewed
-
Date of Service: May 03, 2024
EKG: Tracing Personally Visualized and interpreted (A-fib, V paced)
Medical Tests (PFT, Pathology etc): Discussed with Patient
Labs: Labs Reviewed by me
[2024-05-03 09:34] LABS: APTT 89.6 Sec (23.4-35.0)
[2024-05-03 10:22] LABS: COVID-19 Antigen Negative (Negative)
--- NOTE | 2024-05-03 14:28 | PTCARENOTE ---
Pt ambulating in room and OOB in chair most of the morning. He showered today, jameson well.
[2024-05-03 15:35] LABS: INR 1.65; PT 19.6 Sec (11.4-14.6)
[2024-05-03 16:11] LABS: APTT 68.4 Sec (23.4-35.0)
[2024-05-03] MEDS: LIPITOR 10 MG PO (18:08)
[2024-05-03] MEDS: COUMADIN 4 MG PO (18:09)
[2024-05-03 22:54] LABS: APTT 93.9 Sec (23.4-35.0)
--- NOTE | 2024-05-04 00:47 | PTCARENOTE ---
Heparin gtt infusing at 800 units/hr. Assessment noted as documented. Tele- V-paced. VSS. Pt has no c/o at this time. Call stephanie w/in reach.
[2024-05-04] MEDS: HEPARIN 25000 UNITS/250 ML IV (04:45)
[2024-05-04 04:51] VITALS: BP 143/65
[2024-05-04 06:21] LABS: APTT 49.8 Sec (23.4-35.0)
[2024-05-04 06:23] LABS: INR 1.79
[2024-05-04 06:28] LABS: Hematocrit 27.1 % (39.0-52.0); Hemoglobin 8.9 g/dL (13.0-18.0); Mean Corp Hgb Conc. 32.8 g/dL (33.0-37.0); Mean Corpuscular Hgb 30.1 pg (27.0-31.0); Mean Corpuscular Volume 91.6 fL (80.0-94.0); Mean Platelet Volume 10.8 fL (7.4-10.4); Platelet Count 112 10^3/uL (130-400); Red Blood Cell Count 2.96 10^6/uL (4.70-6.10); Red Cell Dist. Width 15.6 % (11.5-14.5); White Blood Cell Count 5.6 10^3/uL (4.8-10.8)
[2024-05-04 06:34] LABS: Blood Urea Nitrogen 33 mg/dl (9-20); Calcium 9.2 mg/dl (8.4-10.2); Carbon Dioxide 27 mmol/L (22-30); Chloride 105 mmol/L (98-107); Estimated Creatinine Clearance 40 ml/min; Glucose 108 mg/dl (70-99); Potassium 4.9 mmol/L (3.5-5.1); Sodium 136 mmol/L (135-145); eGFR 58.17
[2024-05-04 07:02] VITALS: BP 111/58; BMI 23.3
--- NOTE | 2024-05-04 07:02 | W.PN.CT ---
Addendum entered and electronically signed by Dani Umaña MD 05/04/24 10:45:
I saw and examined the patient.
The PA's note was reviewed and I agree with the note.
Comment:
Pt agreeable w/ lovenox
Will arrange for outpatient lovenox - pt. has home INR monitoring capabilities & long history of coumadin dosing
F/U pulmonary biopsy results (+/- outpatient PET)
D/C home
Original Note:
Today's Communication / Plan
-
-pod #8 post TAVR
-no issues overnight
-Cr stable - 1.2 today. Holding Lasix, Lisinopril.
-s/p bronchoscopy/biopsy of RLL on 04/30. F/u pathology/cx. Pulmonary recommends outpatient PET scan depending on biopsy results
-Heparin to Coumadin bridge for mechanical valve/chronic a-fib. Got 4 mg of Coumadin on 04/30, 6.5 mg on 05/01, and 4 mg on 05/02 and 05/03. INR 1.79 and PTT was 93.9 last night and 49.8 this am.
-follow platelets- stable 112K today
-echo 04/27 showed a well seated TAVR with PG/MG of 14/8 mmHg, no AI, LVEF 55-60%
-encourage IS, OOB, ambulate
Assessment / Plan
-
- Severe symptomatic - s/p Left trans femoral TAVR with a 29 mm Conley TAVR valve on 04/26/24, pod #8
- Intraop TTE: Preop LVEF was 35% and was 40% following TAVR without inotropic support, no regional wma or dyskinesia. The aortic valve was well seated without detectable PVL and mean gradient of 2mmHg
- LVEDP pre TAVR was 20mmHg
- Hypertension
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
- History of open heart surgery with mitral valve replacement, mechanical valve- Heparin to Coumadin bridge post TAVR
- Permanent atrial fibrillation with permanent pacemaker implanted
- Coronary artery disease -status post CABG
- Severe pulmonary hypertension
- Recent episode of pneumonia
- RLL spiculated mass concerning for malignancy- s/p robotic bronchoscopy on 04/30
- Iron deficiency anemia- starte on iron
- LIZZ
Discussed patient care with: Nursing and Care Team
Subjective
Procedure
- s/p Left trans femoral TAVR with a 29 mm Conley TAVR valve on 04/26/24
-
Date of Service: May 04, 2024
Objective Data
-
Lab Results
05/04/24 05:01
05/04/24 05:01
PT 21.0 Sec (11.4-14.6) H 05/04/24 05:01
INR 1.79 05/04/24 05:01
APTT 49.8 Sec (23.4-35.0) H 05/04/24 05:01
Vital Signs
Vital Signs
Temp Pulse Resp BP Pulse Ox
98.4 F 60 16 143/65 96
05/04/24 05:09 05/04/24 04:51 05/04/24 05:09 05/04/24 04:51 05/04/24 05:09
CT Intake/Output/Weight
05/03/24 05/04/24 05/04/24
18:59 06:59 18:59
Intake Total 296 / 296
Balance 296 / 296
SaO2: 96
Physical Exam
-
General: Awake and AOx3
Cardiovascular: Regular rate & rhythm (a-fib with v-pacing)
Respiratory: Decreased Breath Sounds
Incision: Clean (b/l groins are cdi, bruised L>R)
Extremities: No Edema
Data Reviewed
-
Lab Results: Results Reviewed
Medications: Active Meds Reviewed
Chest X-Ray: Report Reviewed and Image Reviewed
ECG: Report Reviewed and Image Reviewed
[2024-05-04] MEDS: OCUVITE SOFTGEL 1 CAP PO (08:38)
[2024-05-04] MEDS: CORGARD 80 MG PO (08:39)
[2024-05-04] MEDS: FEOSOL 325 MG PO (08:39)
[2024-05-04] MEDS: LANOXIN 125 MCG PO (08:40)
[2024-05-04] MEDS: VITAMIN C 500 MG PO (08:40)
--- NOTE | 2024-05-04 09:01 | W.PN.CD ---
Today's Communication / Plan
-
Can hold lisinopril at discharge and I can resume as outpatietnif BP stable
Take daily BP and bring in to visit
resume prior lasix dosing
renal profile Tuesday and then agin in 2 weeks
Coumadin dosing Can receive 4 mg tonight then would be on 2.5 mg on and Tuesday. He will check home INR on and Tuesday and call Dr Morrissey with results. Additonal instructions based results.
Impression / Plan
-
Exchange Administrator: Dr. Morrissey
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
presents prior to TAVR for heparin bridge and cardiac optimization. Patient had prior treatment of PNA and was noted to have residual consolidation vs mass and is being evaluated by pulmonary this admit.
s/p TAVR (emergent 29 Conley SALO S3) on 04/26/2024
-Remains stable post-procedure.
RLL mass
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
-Bronchoscopy and biopsy performed 04/30/2024.
-Awaiting results of pathology; additional follow-up directed by Pulmonary.
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
-proBNP down from prior admission and CXR did not show congestion so he did not receive diuretic pre-TAVR
-Continue GDMT as tolerated
-ACEI/ARB: Lisinopril 5 mg
-SGLT2: Jardiance is affordable, can consider
-Beta-aldo: Nadolol (was on this as outpatient; likely not able to tolerate metoprolol succinate, carvedilol, or bisoprolol).
-MRA: He had hyperkalemia when he presented to the ER 02/27/2024
-resume lasix. Lisinopril ahs been held will reassess when seen in office
Mitral valve replacement/mechanical valve (35-mm [place])
-Continue bridging with heparin drip to Coumadin; INR 1.79. Ok to brideg with lovenoxand monitor as outpatien he want sto go to grandchilds wedhis weekend.
- (home dose apparently 2.5 a/w 1.25)
Permanent atrial fibrillation
-Continue nadolol and digoxin
-Oral Anticoagulation: He is on warfarin in the outpatient setting (mechanical mitral valve), bridging with heparin drip as above.
-[id number]: score at least 4 (Heart failure, age 75 or more, Vascular disease)
Coronary artery disease
-CABG 2008 (SVG-OM)
-Remains stable without chest pain.
-On aspirin and warfarin in the outpatient setting
Creatinine up to 1.5. Lasix on hol dnad now improving cr 1.3.
-Check digoxin level in a.m.
-Hold digoxin in morning until we see a trend of creatinine
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
Former smoker, continued cessation recommended
DATA:
Chest CT 04/24/24
IMPRESSION:
There is a confluent mass-like opacity within the right lower lobe. There has been significant interval improvement in surrounding parenchymal airspace opacities in the right lower lobe since previous examination, suggesting interval improvement in
pneumonia.
The persistent confluent opacity within the right lower lobe could represent neoplasia/carcinoma, with differential consideration of residual organizing pneumonia. For further evaluation, consideration for biopsy. Alternatively, PET/CT scan could be
performed. Also, close CT follow-up could be considered.
1.4 cm precarinal lymph node, stable, with probable fatty central hilum, most likely a reactive inflammatory lymph node.
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
Cardiac catheterization, 03/02/2024:
1. Right dominant circulation with a 70+% stenosis of the lower branch of
OM1 status post single-vessel bypass with a patent SVG to OM1 with no evidence of degeneration.
2. Severely elevated filling pressures (PCWP = 30 mmHg at 65.3 kg).
3. Status post mechanical mitral valve replacement with normal leaflet excursion.
4. Severe aortic valve stenosis by echocardiography.
5. 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
6. 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
Echocardiogram, 02/27/2024:
Moderately reduced left ventricular systolic function.
Left ventricular ejection fraction is 35-40%.
Mechanical mitral valve with a mean gradient of 4 mmHg and no mitral
regurgitation
Severe aortic stenosis. Peak gradient 42 mmHg. Mean gradient 23 mmHg.
Dimensionless index 0.2
Severe pulmonary hypertension with estimated PA pressure 75 to 80 mmHg
When compared with the previous report 09/26/2023 estimated EF is reduced.
Previously 40 to 45%. Estimated PA pressure is increased. Previously 64 mmHg.
Physical Exam
Vital Signs/Labs
Vital Signs
Temp Pulse Resp BP Pulse Ox
97.9 F 65 18 111/58 96
05/04/24 06:59 05/04/24 08:40 05/04/24 06:59 05/04/24 07:02 05/04/24 07:04
05/03/24 05/04/24 05/05/24
06:59 06:59 06:59
Actual Weight 67 kg 67.3 kg
05/04/24 05:01
05/04/24 05:01
PT 21.0 Sec (11.4-14.6) H 05/04/24 05:01
INR 1.79 05/04/24 05:01
APTT 49.8 Sec (23.4-35.0) H 05/04/24 05:01
Digoxin 0.7 ng/ml (0.8-2.0) L 05/02/24 04:37
04/24/24
10:30
Glv-D-Volbtehojcz Pept 3200
Physical Exam
Constitutional: No acute distress
Cardiovascular: Rhythm & rate is regular and Other ([facility] )
Respiratory: Wheeze Absent, Rhonchi Absent and Other (rare crackle right base)
GI: Soft
Neuro/Psych: Alert
Data Reviewed
-
Date of Service: May 04, 2024
Medical Decision Making: Reviewed Test Results
X-Ray/CT/US/MRI/NUC/PET: Report Reviewed by me
Medical Tests (PFT, Pathology etc): Report Reviewed by me
Labs: Labs Reviewed by me
--- NOTE | 2024-05-04 09:25 | W.DCSUMMARY ---
Discharge Summary
Discharge Data
Date of Admission: 04/24/24
Date of Discharge: 05/04/24
Total time spent discharging patient (in min): 40
-
Pending Results: No
Hospital Course
Primary care physician:
Dr. Yinka Lemon MD.
Outpatient southeast regional sales manager:
Dr. Les Morrissey MD.
Inpatient consultants:
[facility]
Procedures:
1. Left trans femoral transcatheter aortic valve replacement with a number 29 millimeter Conley vavle.
Primary Diagnosis:
1. Severe aortic valve stenosis, symptomatic [low-flow low gradient]
Secondary Diagnoses:
1. Severe aortic stenosis, symptomatic [low-flow low gradient]
2. Hypertension
3. Chronic systolic and diastolic heart failure, left ventricular ejection fraction of 30 to 35%
4. History of open heart surgery with mitral valve replacement, mechanical valve
5. Permanent atrial fibrillation with permanent pacemaker implanted
6. Coronary artery disease status post coronary artery bypass grafting
7. Severe pulmonary hypertension
8. Recent episode of pneumonia
9. Right lower lobe mass concerning for malignancy
HPI:
Patient is an 89-year-old male with symptomatic severe aortic stenosis. He has a history of a mechanical mitral valve with coronary artery bypass grafting . He has baseline low ejection fraction, chronic congestive heart failure. Transcatheter
aortic valve replacement cat scan protocol revealed acceptable anatomy for transcatheter aortic valve replacement access and implantation. Multidisciplinary discussion with his taffy candy maker, and outpatient southeast regional sales manager agreed.
Patient was admitted electively from home on 04/24/24 for an intravenous Heparin drip to allow his INR to trend down prior to his surgery on 04/26/24.
Hospital course:
Patient was given two units of fresh frozen plasma on 04/25/24 for an INR of 2.66 prior to his surgery. On 04/26/24 Patient tolerated procedure well. Procedure was performed under conscious sedation and local sedation. Patient was transferred to the
interventional unit and heparin drip was resumed later that evening. He was kept on a Heparin drip over the weekend in preparation for his robotic bronchoscopy.
On postoperative day number four patient underwent a robotic bronchoscopy of the right lower lobe to work up his right lower lobe mass. Ultrasounds of the patient�s groins were negative for hematoma, pseudo, aneurysms, or arteriovenous fistula's. On
postoperative day number five Coumadin was initiated at 4 mg for an INR of 1.32. He continued an intravenous heparin drip.
The rest of the patient care centered around achieving a therapeutic INR. 05/04/24 postoperative day number eight the patients INR was still subtheraputic at 1.79. The decision was made to bridge the patient with Lovenox. Patient's case was
discussed with attending physician as well as Cardiology. He was given a dose of Lovenox 70 mg SC x 1 and his heparin drip was discontinued. He will be discharged home with Lovenox injections, his home dose of Coumadin, and baby Aspirin 81 mg
daily.
He was instructed to take his home dose of Coumadin, which is alternating days of 1.25 mg and 2.5 mg. He will have his INR checked by the visiting nurses on Tuesday05/07/24 via his home machine. Patient should check his INR daily while at home. He
should discontinue his Lovenox injections when his INR is 2.5 or greater. At that point, he will continue aspirin and warfarin. he should also resume his home dose of Lasix 40 mg daily. At the request of cardiology, he will have a basic metabolic
panel performed on Tuesday as well with results sent to cardiology. Cardiology will also manage the patient�s Coumadin.
Sent from my iPhone
Home medication changes:
Please pay attention to the following home medication changes:
Take Acetaminophen 650 mg Q4H PRN for fever/mild-moderate pain
Take Vitamin C 500 mg daily x 30 days-anemia
Take Aspirin 81 mg daily-s/p TAVR, h/o MVR/CABG
Take Ferrous Sulfate 325 mg daily-anemia
Take Lovenox 70 mg SC Q12 until INR is 2.5. Stop Lovenox injections when INR is 2.5 or greater and continue Coumadin and Aspirin.
Check PT/INR via patients home machine on Tuesday05/07/24. Please send results to Dr. Yuni MD. Cardiology
BMP to assess renal function on Tuesday05/07/24. Please send results to Dr. Yuni MD. Cardiology
Once INR is 2.5 or greater stop taking your Lovenox injections. Continue your home dose of Coumadin and Aspirin 81 mg daily.
Discharge Plan
-
Patient Disposition: Home (Routine Discharge)
Discharge Diagnosis/Procedures: TF-TAVR
Condition: Good
Diet: Low Cholesterol and 2 Gram Sodium
Activity: As tolerated
Driving Restrictions: No driving for 1 week
Bathing Restrictions: OK to Shower
Blood Work: Check PT/INR via patients home machine on Tuesday05/07/24. Please send results to Dr. Yuni MD. Cardiology
BMP to assess renal function on Tuesday05/07/24. Please send results to Dr. Yuni MD. Cardiology
Once INR is 2.5 or greater stop taking your Lovenox injections. Continue your home dose of Coumadin and Aspirin 81 mg daily.
Others Tests: 30 Day Follow Up Echocardiogram: 05/28/2024 at 11:20am at [facility].
Other Services: Cardiac Rehab
Wound Care: Please do not apply lotions, creams or powders to groin areas. Please monitor for increased pain, swelling, redness or drainage. Contact your doctor if any occur.
Specialty Instructions: Weigh Daily- Call MD for wt gain/loss 3 lbs overnight/5 lbs in 1 week
Instructions: *CBC Heart Failure Instructions
Stand Alone Forms: DC Inst - TransFemoral (TAVR)
Referrals:
CT Transitional Care Nurse [Outside] (The Cardiothoracic Transitional Care Nurse will call you to set up a visit in 1-2 days.)
[facility] [Outside] - 06/04/24 10:00 am
(Cardiac Rehab Orientation appointment is on June 04 at 10am.
The Cardiac Rehab gym is located on the first floor of the [facility].)
Selene Chaney NP [Specified Professional Personl] - 05/25/24 11:40 am
Clark Luna MD [Active] - in four to six weeks (PET scan to be set up as outpatient prior to visit with pulmonary)
Yinka Lemon MD [Family Provider] -
Additional Discharge Medication Instructions: Please pay attention to the following home medication changes:
Take Acetaminophen 650 mg Q4H PRN for fever/mild-moderate pain
Take Vitamin C 500 mg daily x 30 days-anemia
Take Aspirin 81 mg daily-s/p TAVR, h/o MVR/CABG
Take Ferrous Sulfate 325 mg daily-anemia
Take Lovenox 70 mg SC Q12 until INR is 2.5. Stop Lovenox injections when INR is 2.5 or greater and continue Coumadin and Aspirin.
Prescriptions:
New
ferrous sulfate [FeroSul] 325 mg (65 mg iron) Tablet
325 mg PO DAILY Qty: 30 0RF
ascorbic acid (vitamin C) [Vitamin C] 500 mg Tablet
500 mg PO DAILY Qty: 30 0RF
acetaminophen 325 mg Tablet
650 mg PO Q4HPRN PRN (Reason: TINEO, mild pain, or fever >101F) Qty: 0 0RF
Rx Instructions:
Please purchase over the counter
enoxaparin [Lovenox] 80 mg/0.8 mL syringe
70 mg SC Q12H Qty: 7 1RF
Rx Instructions:
Please dispense/dose patient with 70 mg (7 mL) Q12 x 5 days with 1 refill
aspirin 81 mg tablet,chewable
81 mg PO DAILY Qty: 30 0RF
Rx Instructions:
After 30 tabs are finished please purchase over the counter
Continued
digoxin 0.125 MG tablet
0.125 mg PO DAILY
simvastatin 20 MG tablet
20 mg PO DAILY
lisinopril 5 MG tablet
5 mg PO DAILY
nadolol 80 mg Tablet
80 mg PO BID
warfarin 2.5 mg Tablet
1.25 mg PO Q OTHER DAY
PreserVision AREDS 4,296 mcg-226 mg-90 mg Capsule
1 cap PO DAILY
furosemide [Lasix] 20 mg Tablet
40 mg PO DAILY
warfarin 2.5 mg Tablet
2.5 mg PO Q OTHER DAY
Care Plan Goals
Care Plan Goals:
Problem: Readiness for enhanced knowledge related to diagnosis and treatment plan
Goal: Understand your diagnosis and treatment plan needs, including medications if applicable.
Instructions: Know your diagnosis, underlying causes and treatment plan options, including medications if applicable. Consult with your health care team to learn about your diagnosis and treatment plan, including medications if applicable.
Discharge Date and Time
Print Language: COOK ISLANDER
[2024-05-04] MEDS: LOVENOX 70 MG SC (09:42)
[2024-05-04] MEDS: LOW STRENGTH ASPIRIN 81 MG PO (09:42)
--- NOTE | 2024-05-04 10:15 | PTCARENOTE ---
Assumed care of pt from night RN. Pt received awake and alert, Ox3. VSS, CM shows 100% V-pacing, POX 95% on RA. Bilateral groin CDI and NOEMY. Limbs with normal CMS. INR 1.79. Pt slated for D/C today, Lovenox teaching done, and kit given to pt.
Heparin drip d/c'd after first dose of Lovenox given as per DEC.
[2024-05-04 11:00] VITALS: BP 110/60
--- NOTE | 2024-05-04 11:48 | PTCARENOTE ---
All D/C info reviewed with pt and family, all questions answered. Pt D/C'd home with family.
== END 2024-05-04 11:30 | disposition home or self-care (01) | DRG 267 ==
LOC: IVU 09:54
PROVIDERS: Clinical Nurse Specialist Acute Care; Internal Medicine Critical Care Medicine; Nurse Practitioner; Nurse Practitioner Adult Health; Nurse Practitioner Gerontology; Physician Assistant Medical; ADMITTING PHYSICIAN Internal Medicine Cardiovascular Disease; ATTENDING PHYSICIAN Thoracic Surgery (Cardiothoracic Vascular Surgery); CONSULT PHYSICIAN Internal Medicine Critical Care Medicine; FAMILY PHYSICIAN Internal Medicine
PROC: 30233K1 Transfusion of Nonautologous Frozen Plasma into Peripheral Vein, Percutaneous Approach (ICD-10-PCS; 2024-04-25)
PROC: 02RF38Z Replacement of Aortic Valve with Zooplastic Tissue, Percutaneous Approach (ICD-10-PCS; 2024-04-26)
PROC: 0B968ZX Drainage of Right Lower Lobe Bronchus, Via Natural or Artificial Opening Endoscopic, Diagnostic (ICD-10-PCS; 2024-04-30)
PROC: 0B9F8ZX Drainage of Right Lower Lung Lobe, Via Natural or Artificial Opening Endoscopic, Diagnostic (ICD-10-PCS; 2024-04-30)
PROC: 8E0W8CZ Robotic Assisted Procedure of Trunk Region, Via Natural or Artificial Opening Endoscopic (ICD-10-PCS; 2024-04-30)
PROC: 0BBF8ZX Excision of Right Lower Lung Lobe, Via Natural or Artificial Opening Endoscopic, Diagnostic (ICD-10-PCS; 2024-04-30)
DX: I35.0 Nonrheumatic aortic (valve) stenosis (principal); C34.31 Malignant neoplasm of lower lobe, right bronchus or lung; I42.8 Other cardiomyopathies; I48.21 Permanent atrial fibrillation; I50.22 Chronic systolic (congestive) heart failure; N17.9 Acute kidney failure, unspecified; I25.10 Atherosclerotic heart disease of native coronary artery without angina pectoris; I27.20 Pulmonary hypertension, unspecified; I11.0 Hypertensive heart disease with heart failure; D50.9 Iron deficiency anemia, unspecified; Z11.52 Encounter for screening for COVID-19; Z79.01 Long term (current) use of anticoagulants; Z79.82 Long term (current) use of aspirin; Z79.899 Other long term (current) drug therapy; Z87.01 Personal history of pneumonia (recurrent); Z87.891 Personal history of nicotine dependence; Z95.0 Presence of cardiac pacemaker; Z95.1 Presence of aortocoronary bypass graft; Z95.2 Presence of prosthetic heart valve
CPT/HCPCS: 88172; 88173; 88305; 93308; 33361; 71045; 71046; 71250; 76000; 80048; 80053; 80069; 80162; 81003; 82248; 82607; 82728; 82746; 83036; 83540; 83550; 83880; 85025; 85027; 85347; 85610; 85730; 86850; 86900; 86901; 86920; 87015; 87070; 87102; 87116; 87205; 87811; 88112; 88333; 88334; 93005; 93306; 93321; 93325; 93926; C1760; C1769; C1887; C1894; P9059; Q9967

== ENCOUNTER → 2024-05-17 14:35 | Outpatient (REF) | payer OTHER, SELFPAY ==
[2024-05-17 17:28] LABS: Blood Urea Nitrogen 42 mg/dl (9-20); Calcium 9.8 mg/dl (8.4-10.2); Carbon Dioxide 27 mmol/L (22-30); Chloride 104 mmol/L (98-107); Glucose 107 mg/dl (70-99); Potassium 5.3 mmol/L (3.5-5.1); Sodium 139 mmol/L (135-145); eGFR 52.84
== END ==
LOC: REG 14:35
PROVIDERS: ATTENDING PHYSICIAN Nurse Practitioner; FAMILY PHYSICIAN Internal Medicine
DX: N28.9 Disorder of kidney and ureter, unspecified (principal)
CPT/HCPCS: 36415; 80048

== ENCOUNTER → 2024-05-28 11:11 | Outpatient (REF) | payer OTHER, SELFPAY | LOC: RCS 11:11 | PROVIDERS: ATTENDING PHYSICIAN Internal Medicine Cardiovascular Disease; FAMILY PHYSICIAN Internal Medicine | DX: I35.0 Nonrheumatic aortic (valve) stenosis (principal) | CPT/HCPCS: 93306 ==

== ENCOUNTER → 2024-10-23 10:00 | Outpatient (REF) | payer OTHER, SELFPAY ==
[2024-10-23 11:41] LABS: Blood Urea Nitrogen 42 mg/dl (9-20); Calcium 9.4 mg/dl (8.4-10.2); Carbon Dioxide 30 mmol/L (22-30); Chloride 102 mmol/L (98-107); Digoxin 0.8 ng/ml (0.8-2.0); Glucose 153 mg/dl (70-99); Potassium 5.1 mmol/L (3.5-5.1); Sodium 140 mmol/L (135-145); eGFR 52.84
== END ==
LOC: REG 10:00
PROVIDERS: ATTENDING PHYSICIAN Internal Medicine Cardiovascular Disease; FAMILY PHYSICIAN Internal Medicine
DX: I48.0 Paroxysmal atrial fibrillation (principal)
CPT/HCPCS: 36415; 80048; 80162

== ENCOUNTER → 2024-12-10 13:05 | Outpatient (REF) | payer OTHER, SELFPAY | LOC: RAD 13:05 | PROVIDERS: ATTENDING PHYSICIAN Internal Medicine | DX: R05.3 Chronic cough (principal) | CPT/HCPCS: 71046 ==

== ENCOUNTER → 2024-12-31 13:27 | Outpatient (REF) | payer OTHER, SELFPAY | LOC: RAD 13:27 | PROVIDERS: ATTENDING PHYSICIAN Internal Medicine Critical Care Medicine | DX: R59.0 Localized enlarged lymph nodes (principal) | CPT/HCPCS: 71046 ==

== ENCOUNTER → 2025-02-25 14:04 | Outpatient (REF) | payer OTHER, SELFPAY ==
[2025-02-25 15:03] LABS: % Basophils 0.5 % (0-2); % Eosinophils 4.7 % (0-6); % Immature Granulocytes 0.3 % (0-0.5); % Lymphocytes 19.6 % (20.5-51.1); % Monocytes 10.5 % (1.7-9.3); % Neutrophils 64.4 % (42.2-75.2); Absolute Eosinophils 0.4 10^3/uL (0-0.7); Absolute Lymphocytes 1.5 10^3/uL (1.2-3.4); Absolute Monocytes 0.8 10^3/uL (0.1-0.6); Absolute Neutrophils 4.8 10^3/uL (1.4-6.5); Hematocrit 36.1 % (39.0-52.0); Hemoglobin 11.5 g/dL (13.0-18.0); Mean Corp Hgb Conc. 31.9 g/dL (33.0-37.0); Mean Corpuscular Hgb 29.6 pg (27.0-31.0); Mean Platelet Volume 10.6 fL (7.4-10.4); Nucleated Red Blood Cells % 0 % (-); Platelet Count 147 10^3/uL (130-400); Red Blood Cell Count 3.88 10^6/uL (4.70-6.10); Red Cell Dist. Width 13.8 % (11.5-14.5); White Blood Cell Count 7.5 10^3/uL (4.8-10.8)
[2025-02-25 15:06] LABS: Urine Albumin Negative (Neg - Trace); Urine Bilirubin Negative (Negative); Urine Character Clear (Clear); Urine Color Yellow; Urine Glucose Negative (Negative); Urine Ketone Negative (Negative); Urine Leukocyte Negative (Negative); Urine Nitrite Negative (Negative); Urine Occult Blood Negative (Negative); Urine Specific Gravity 1.015 (<1.030); Urine Urobilinogen Negative (Neg - 1+)
[2025-02-25 15:31] LABS: ALT (SGPT) 14 U/L (0-50); AST (SGOT) 24 U/L (17-59); Albumin 4.6 g/dl (3.5-5.0); Alkaline Phosphatase 62 U/L (38-126); Blood Urea Nitrogen 37 mg/dl (9-20); Calcium 9.6 mg/dl (8.4-10.2); Carbon Dioxide 30 mmol/L (22-30); Chloride 110 mmol/L (98-107); Glucose 160 mg/dl (70-99); HDL Cholesterol 30 mg/dl; LDL Cholesterol, Calculated 60 mg/dl; Potassium 5.1 mmol/L (3.5-5.1); Sodium 144 mmol/L (135-145); Total Bilirubin 0.6 mg/dl (0.2-1.3); Total Cholesterol 142 mg/dl (50-199); Total Protein 7.2 g/dl (6.3-8.2); Triglyceride 261 mg/dl (10-149); Very Low Density Lipoprotein 52 mg/dl (0-30); eGFR 57.81
[2025-02-25 15:35] LABS: Vitamin D, 25-OH*** 36.3 ng/mL (30-80)
[2025-02-25 15:48] LABS: TSH Reflex To Free T4 0.18 uIU/ml (0.47-4.68)
[2025-02-25 16:08] LABS: Vitamin B12 > 1000 pg/ml (239-931)
[2025-02-25 16:14] LABS: Free T4 1.11 ng/dl (0.78-2.19)
[2025-02-26 10:17] LABS: Glycohemoglobin (HgbA1c) 5.8 % (4.0-5.6)
[2025-02-28 00:48] LABS: Apolipoprotein B 82 mg/dL (66-133)
== END ==
LOC: REG 14:04
PROVIDERS: ATTENDING PHYSICIAN Nurse Practitioner Family; FAMILY PHYSICIAN Internal Medicine
DX: Z76.89 Persons encountering health services in other specified circumstances (principal); I50.22 Chronic systolic (congestive) heart failure; I48.21 Permanent atrial fibrillation; Z95.2 Presence of prosthetic heart valve; I25.810 Atherosclerosis of coronary artery bypass graft(s) without angina pectoris; I10 Essential (primary) hypertension; R13.19 Other dysphagia; Z01.89 Encounter for other specified special examinations
CPT/HCPCS: 36415; 80053; 80061; 81003; 82172; 82306; 82607; 83036; 84439; 84443; 85025

== ENCOUNTER → 2025-04-30 12:40 | Outpatient (REF) | payer OTHER, SELFPAY ==
[2025-04-30 15:31] LABS: TSH 0.87 uIU/ml (0.47-4.68)
[2025-05-01 09:12] LABS: Glycohemoglobin (HgbA1c) 6.1 % (4.0-5.6)
== END ==
LOC: REG 12:40
PROVIDERS: ATTENDING PHYSICIAN Nurse Practitioner Family
DX: R79.89 Other specified abnormal findings of blood chemistry (principal); E78.00 Pure hypercholesterolemia, unspecified; R73.01 Impaired fasting glucose
CPT/HCPCS: 36415; 82172; 83036; 84439; 84443

== ENCOUNTER 2025-05-14 20:15 | Emergency (ER) | payer OTHER, SELFPAY ==
[2025-05-14 20:31] VITALS: BP 139/68
[2025-05-14 21:07] LABS: Hematocrit 37.7 % (39.0-52.0); Hemoglobin 12.4 g/dL (13.0-18.0); Mean Corp Hgb Conc. 32.9 g/dL (33.0-37.0); Mean Corpuscular Volume 90.6 fL (80.0-94.0); Nucleated Red Blood Cells % 0 % (-); Platelet Count 187 10^3/uL (130-400); Red Cell Dist. Width 14.5 % (11.5-14.5)
[2025-05-14 21:17] LABS: INR 3.04; PT 31.8 Sec (11.4-14.6)
[2025-05-14 21:30] LABS: ALT (SGPT) 14 U/L (0-50); AST (SGOT) 25 U/L (17-59); Albumin 4.5 g/dl (3.5-5.0); Alkaline Phosphatase 66 U/L (38-126); Blood Urea Nitrogen 45 mg/dl (9-20); Calcium 9.3 mg/dl (8.4-10.2); Carbon Dioxide 32 mmol/L (22-30); Chloride 100 mmol/L (98-107); Glucose 144 mg/dl (70-99); Potassium 5.3 mmol/L (3.5-5.1); Sodium 137 mmol/L (135-145); Total Protein 7.7 g/dl (6.3-8.2); eGFR 52.51
--- NOTE | 2025-05-14 22:22 | ED.GENMED ---
History of Present Illness
General
Chief Complaint: Visual Problem
Source: patient and family
Time Seen by Provider: 05/14/25 22:20
Nursing documentation reviewed up to this point in time: agreed with
History of Present Illness
History of Present Illness:
Note:
CHIEF COMPLAINT(S)
Subconjunctival hemorrhage in the right eye.
HISTORY OF PRESENT ILLNESS
The patient is an 89-year-old male with a history of atrial fibrillation, for which he is on anticoagulation therapy with warfarin. He presented after noticing a subconjunctival hemorrhage in his right eye. The patient reports that he was lying on
the couch and had fallen asleep. Upon waking, he noticed the condition, and it has been progressively worsening. The patient contemplated visiting an urgent care facility, but it was not open. He previously underwent cataract surgery on his eyes,
although he does not recall the specifics of the surgeon or the timeline of the procedure.
The patient is concerned the subconjunctival hemorrhage may be enlarging. He received information that his International Normalized Ratio (INR) is currently 3.0, which is within the therapeutic range for his condition (2.5 to 3.5). The ER provider
plans to communicate with an on-call leak operator paraffin plant and send a photograph of the eye to the specialist for further evaluation.
SOCIAL DETERMINANTS AFFECTING HEALTH
The patient mentioned living in [place], indicating he had traveled a significant distance to the facility. There are concerns regarding a dog at home that may need care during his time at the facility, indicating some level of caregiving stress.
PHYSICAL EXAM
- General: The patient is alert and oriented.
- Eyes: Subconjunctival hemorrhage in the right eye noted. Visual isabel are full to confrontation bilaterally.
- Head and Neck: Cardiovascular: Midline surgical incision scar present. No signs of trauma.
PROBLEM LIST
Acute:
- Subconjunctival hemorrhage in the right eye
Chronic:
- Atrial fibrillation
PLAN
The plan includes contacting the on-call leak operator paraffin plant and communicating the findings, including sending photographs of the eye, to facilitate expert evaluation and determine the next steps.
DIFFERENTIAL DIAGNOSIS
The Differential Diagnosis includes, in no particular order and is not limited to:
1. Subconjunctival hemorrhage due to anticoagulation therapy.
2. Ocular trauma.
3. Conjunctivitis.
4. Ocular surface disease.
5. Hypertension-related hemorrhage.
6. Blood dyscrasia.
7. Scleral rupture.
8. Vitreous hemorrhage.
9. Retinal detachment.
10. Ocular melanoma.
CARE-UPDATE
05/14/25 - 23:[address] Heaton, leak operator paraffin plant, who recommends artificial tears and cold compresses for two weeks. expected to clear in two weeks, with no indication to stop or reverse Coumadin. Patient stable for discharge and will follow up with
ophthalmology.
Disposition:
SUMMARY OF ENCOUNTER
The patient is an 89-year-old male with a history of atrial fibrillation on warfarin therapy who presented with a subconjunctival hemorrhage in the right eye. He noticed the condition upon waking on the couch and reported it has been worsening. His
INR is within the therapeutic range. The ER provider consulted with an on-call leak operator paraffin plant, who recommended treatment with artificial tears and cold compresses.
DISPOSITION
Discharge home in good condition.
ASSESSMENT
Subconjunctival hemorrhage in the right eye likely due to anticoagulation therapy.
MANAGEMENT OF THE PATIENTS CARE WAS DISCUSSED WITH
Dr. Heaton, leak operator paraffin plant, who recommended the use of artificial tears and cold compresses.
PLAN
The patient is to use artificial tears and apply cold compresses for two weeks. The subconjunctival hemorrhage is expected to resolve within this period. Continue current warfarin regimen as there is no indication to stop or reverse.
PATIENT EDUCATION AND COUNSELING
The patient was educated about the benign nature of subconjunctival hemorrhages, the use of artificial tears, and cold compresses as part of conservative management. They were reassured that the condition should resolve in approximately two weeks.
FOLLOW-UP INSTRUCTIONS
Follow up with ophthalmology in one week or sooner if there are any concerns.
MEDICATION RECONCILIATION
Continue current anticoagulation therapy with warfarin.
MEDICAL DECISION MAKING
1. Number and Complexity of Problems Addressed: Chronic conditions affecting care include atrial fibrillation and ocular concerns related to anticoagulation therapy.
2. Data:
Category 3:
Discussion of management with Dr. Heaton, an leak operator paraffin plant.
-Risk:
Care significantly affected by Social Determinants of Health: Patient expressed concerns about caregiving for a pet at home.
DIAGNOSIS
1. Subconjunctival hemorrhage (H11.3)
Past History
Past History
ED Past Medical History: Arrthythmia (Atrial fib), HTN, Hypercholesterolemia, Valvular disease (Mitral valve replacement, severe aortic stenosis) and Other (GI bleed)
ED Past Surgical History: Cardiac (CABG) and Other (Hernia repair)
Social History
Tobacco: Former smoker
Alcohol: None
Personal:
Living: with family
Phy Exam
Physical Exam
Physical Exam:
.
Course
Orders/Labs/Results
Orders:
Orders
05/14/25 20:49
CMP [Comprehensive Metabolic Panel] Urgent
Complete Blood Count/With Diff Urgent
Prothrombin Time Urgent
05/14/25 22:25
Visual Acuity- Treatment ONCE
05/14/25 22:49
Artificial Tears (Pf) [Refresh Eye Drops (Pf)] 1 drops OPHTH STAT STA
Nursing to Place Non Medication Order As Directed
Physician Order: ice to right eye
Abnormal Lab Results
05/14/25
20:49
RBC 4.16 L 10^6/uL
(4.70-6.10)
Hgb 12.4 L g/dL
(13.0-18.0)
Hct 37.7 L %
(39.0-52.0)
MCHC 32.9 L g/dL
(33.0-37.0)
MPV 10.6 H fL
(7.4-10.4)
Absolute Monos (auto) 0.7 H 10^3/uL
(0.1-0.6)
Lymphocytes % 19.4 L %
(20.5-51.1)
PT 31.8 H Sec
(11.4-14.6)
Potassium 5.3 H mmol/L
(3.5-5.1)
Carbon Dioxide 32 H mmol/L
(22-30)
BUN 45 H mg/dl
(9-20)
Glucose 144 H mg/dl
(70-99)
05/14/25 20:49
05/14/25 20:49
Vital Signs
Initial and Last Documented VS:
Initial Vital Signs
Temp Pulse Resp BP Pulse Ox
98.2 F 64 18 139/68 97
05/14/25 20:31 05/14/25 20:31 05/14/25 20:31 05/14/25 20:31 05/14/25 20:31
Last Documented Vital Signs
Temp Pulse Resp BP Pulse Ox
98.2 F 64 18 139/68 97
05/14/25 20:31 05/14/25 20:31 05/14/25 20:31 05/14/25 20:31 05/14/25 22:23
*Pulse Oximetry
SaO2: 97
Oxygen Mode of Delivery: Room air
Patient hypoxic: no
*Critical Care Note
Total Time (30-74mins, 75-104mins- exclusive of procedures): Not Applicable
ED Attending Note
-
Portions of this chart may have been created with voice recognition software.� Occasional wrong word or��sound alike� substitutions may have occurred due to the inherent limitations of voice recognition software.
Discharge Plan
Departure
Patient Disposition: Home (Routine Discharge)
Date of Disposition: 05/14/25
Time of Disposition: 22:50
Patient with high blood pressure during this ER visit?: Yes
Condition: Good
Discharge Problem:
Subconjunctival hemorrhage of right eye
Instructions: Subconjunctival Hemorrhage, BLOOD PRESSURE
Prescriptions:
No Action
digoxin 0.125 MG tablet
0.125 mg PO DAILY
simvastatin 20 MG tablet
20 mg PO DAILY
lisinopril 5 MG tablet
5 mg PO DAILY
nadolol 80 mg Tablet
80 mg PO BID
PreserVision AREDS 4,296 mcg-226 mg-90 mg Capsule
1 cap PO DAILY
furosemide [Lasix] 20 mg Tablet
40 mg PO DAILY
ferrous sulfate [FeroSul] 325 mg (65 mg iron) Tablet
325 mg PO DAILY Qty: 30 0RF
ascorbic acid (vitamin C) [Vitamin C] 500 mg Tablet
500 mg PO DAILY Qty: 30 0RF
acetaminophen 325 mg Tablet
650 mg PO Q4HPRN PRN (Reason: TINEO, mild pain, or fever >101F) Qty: 0 0RF
Rx Instructions:
Please purchase over the counter
aspirin 81 mg tablet,chewable
81 mg PO DAILY Qty: 30 0RF
Rx Instructions:
After 30 tabs are finished please purchase over the counter
enoxaparin [Lovenox] 80 mg/0.8 mL syringe
70 mg SC Q12H Qty: 7 1RF
Rx Instructions:
dose 70 mg Q12 until INR is therapeutic at 2.5. Remove 1 mL from the 8 mL syringe = 7 mL
warfarin 4 mg tablet
4 mg PO ONCE Qty: 1 0RF
Rx Instructions:
TAKE 4mg TONIGHT 05/04/2024
warfarin 2.5 mg Tablet
2.5 mg PO DAILY Qty: 0 0RF
Referrals:
Yury Harry CRNP [Family Provider, General]
Jenna Heaton MD [Active, Ophthalmology] - Call in 1-3 days for appt
Interventions
Interventions:
*Risk Screen - Suicide Last Done: 05/14/25 20:31
*General Assessment Last Done: 05/14/25 20:31
*Neglect/Abuse Screening Last Done: 05/14/25 23:23
*ED- Fall Risk Assessment Last Done: 05/14/25 20:31
*Nursing Disposition Last Done: 05/14/25 23:23
Discharge Date and Time
Discharge Date/Time: 05/14/25 23:23
Print Language: GREENLANDIC
[2025-05-14] MEDS: REFRESH EYE DROPS (PF) 1 DROPS OPHTH (23:21)
== END 2025-05-14 23:23 | disposition home or self-care (01) ==
LOC: EMR 20:15
PROVIDERS: Emergency Medicine; EMERGENCY PHYSICIAN Emergency Medicine; FAMILY PHYSICIAN Nurse Practitioner Family
DX: H11.31 Conjunctival hemorrhage, right eye (principal); I48.91 Unspecified atrial fibrillation; I35.0 Nonrheumatic aortic (valve) stenosis; I10 Essential (primary) hypertension; E78.00 Pure hypercholesterolemia, unspecified; I38 Endocarditis, valve unspecified; Z79.01 Long term (current) use of anticoagulants; Z95.2 Presence of prosthetic heart valve; Z95.1 Presence of aortocoronary bypass graft; Z87.891 Personal history of nicotine dependence
CPT/HCPCS: 99283; 80053; 85025; 85610

== ENCOUNTER → 2025-06-24 10:04 | Outpatient (REF) | payer OTHER, SELFPAY | LOC: RCS 10:04 | PROVIDERS: ATTENDING PHYSICIAN Internal Medicine Cardiovascular Disease; FAMILY PHYSICIAN Internal Medicine Geriatric Medicine | DX: I48.0 Paroxysmal atrial fibrillation (principal); I48.21 Permanent atrial fibrillation; Z95.0 Presence of cardiac pacemaker; Z95.2 Presence of prosthetic heart valve; I25.10 Atherosclerotic heart disease of native coronary artery without angina pectoris | CPT/HCPCS: 93306 ==